=== PATIENT | male | born 1950 | race Caucasian/White ===

== ENCOUNTER → 2020-04-29 | Outpatient (CLI) | payer MEDICARE, OTHER ==
[~2020-04-29] MED LIST: ADV500INH; ESCI10TA2; FARX1TAB3 PO; JANU100T; LANS30CA93; PIOG15TA; ROSU20TA5; SYNT112T2; VENTAER INH
== END ==
LOC: M LABSMTC 10:56
PROVIDERS: ATTEND Anesthesiology
DX: Z01.812 Encounter for preprocedural laboratory examination (principal); Z20.828 Contact with and (suspected) exposure to other viral communicable diseases
CPT/HCPCS: C9803; U0003

== ENCOUNTER 2020-05-04 10:45 | Day surgery (SDC) | payer MEDICARE, OTHER ==
[~2020-05-04] VITALS: Ht 156.2 cm; Wt 68.0 kg
[~2020-05-04 10:45] MED LIST changes: +LIDOCAINE 2% 100MG/5ML SDV (FOR ANES.) As Ordered ONE; +NS 1,000 ML IV ONE; +propofoL 500 MG/50 ML VIAL As Ordered ONE
--- NOTE | 2020-05-04 12:10 | ROOR ---
Patient Name: Karan Uriostegui Procedure Date: 05/04/2020 11:46 AM Date of : 1950 Age: 69 Room: [facility] Gender: Male Note Status: Finalized Procedure: Upper Endoscopy + Biopsies + Endoloop Indications: Heartburn, Exclusion of Reynaga's esophagus Providers: Kavon Moura MD Referring MD: KASEY ALVA Requesting Provider: Medicines: Monitored Anesthesia Care Complications: No immediate complications. Procedure: Pre-Anesthesia Assessment: - The heart rate, respiratory rate, oxygen saturations, blood pressure, adequacy of pulmonary ventilation, and response to care were monitored throughout the procedure. The Endoscope was introduced through the mouth, and advanced to the second part of duodenum. The upper GI endoscopy was accomplished without difficulty. The patient tolerated the procedure well. Findings: The Z-line was regular and was found 35 cm from the incisors. Multiple biopsies were obtained with cold forceps for evaluation to rule out Reynaga's Esophagus randomly at the gastroesophageal junction. A medium-sized hiatal hernia was present. A single medium pedunculated polyp with no bleeding and no stigmata of recent bleeding was found in the prepyloric region of the stomach. One ligature was successfully placed. Biopsies were taken with a cold forceps for histology. Localized mildly erythematous mucosa without bleeding was found in the gastric antrum. Biopsies were taken with a cold forceps for Helicobacter pylori testing. The exam was otherwise without abnormality. Impression: - Z-line regular, 35 cm from the incisors. - Medium-sized hiatal hernia. - A single gastric polyp. Ligated. Biopsied. - Erythematous mucosa in the antrum. Biopsied. - The examination was otherwise normal. - Multiple biopsies were obtained at the gastroesophageal junction. Recommendation: - Patient has a contact number available for emergencies. The signs and symptoms of potential delayed complications were discussed with the patient. Return to normal activities tomorrow. Written discharge instructions were provided to the patient. - Discharge patient to home. - Follow an antireflux regimen. - Continue present medications. - Await pathology results. - Telephone GI clinic for pathology results in 1 week. - Return to referring physician. - The findings and recommendations were discussed with the patient. Kavon Moura MD Kavon Moura MD 05/04/2020 12:09:27 PM Electronically signed by Kavon Moura MD Number of Addenda: 0 Note Initiated On: 05/04/2020 11:46 AM Estimated Blood Loss: Estimated blood loss: none.
--- NOTE | 2020-05-04 12:21 | ROOR ---
Patient Name: Karan Uriostegui Procedure Date: 05/04/2020 11:48 AM Date of : 1950 Age: 69 Room: [facility] Gender: Male Note Status: Finalized Procedure: Total Colonoscopy to Cecum Indications: Screening for colorectal malignant neoplasm Providers: Kavon Moura MD Referring MD: KASEY ALVA Requesting Provider: Medicines: Monitored Anesthesia Care Complications: No immediate complications. Procedure: Pre-Anesthesia Assessment: - The heart rate, respiratory rate, oxygen saturations, blood pressure, adequacy of pulmonary ventilation, and response to care were monitored throughout the procedure. The Colonoscope was introduced through the anus and advanced to the cecum, identified by appendiceal orifice and ileocecal valve. The colonoscopy was performed without difficulty. The patient tolerated the procedure well. The quality of the bowel preparation was good. Findings: The perianal and digital rectal examinations were normal. Non-bleeding internal hemorrhoids were found during retroflexion. The hemorrhoids were small and Grade I (internal hemorrhoids that do not prolapse). Multiple small and large-mouthed diverticula were found in the recto-sigmoid colon, sigmoid colon and descending colon. The exam was otherwise without abnormality on direct and retroflexion views. Impression: - Non-bleeding internal hemorrhoids. - Diverticulosis in the recto-sigmoid colon, in the sigmoid colon and in the descending colon. - The examination was otherwise normal on direct and retroflexion views. - No specimens collected. - The exam was otherwise normal to the cecum. Recommendation: - Patient has a contact number available for emergencies. The signs and symptoms of potential delayed complications were discussed with the patient. Return to normal activities tomorrow. Written discharge instructions were provided to the patient. - High fiber diet. - Discharge patient to home. - Continue present medications. - Repeat colonoscopy in 10 years for screening purposes. - Return to referring physician. - The findings and recommendations were discussed with the patient. Kavon Moura MD Kavon Moura MD 05/04/2020 12:21:22 PM Electronically signed by Kavon Moura MD Number of Addenda: 0 Note Initiated On: 05/04/2020 11:48 AM Estimated Blood Loss: Estimated blood loss: none.
[2020-05-04 12:40] VITALS: BP 118/62
== END 2020-05-04 12:52 | disposition home or self-care (01) ==
LOC: M OPP 10:45
PROVIDERS: ATTEND Internal Medicine Gastroenterology
DX: Z12.11 Encounter for screening for malignant neoplasm of colon (principal); K64.0 First degree hemorrhoids; K57.30 Diverticulosis of large intestine without perforation or abscess without bleeding; K44.9 Diaphragmatic hernia without obstruction or gangrene; K31.7 Polyp of stomach and duodenum; K31.89 Other diseases of stomach and duodenum; R12 Heartburn; Z79.84 Long term (current) use of oral hypoglycemic drugs; Z79.899 Other long term (current) drug therapy
CPT/HCPCS: 43239; 88305; G0121

== ENCOUNTER 2020-08-15 18:49 | Observation (INO) | payer MEDICARE, OTHER ==
[~2020-08-15] VITALS: Ht 154.9 cm; Wt 66.0 kg
[~2020-08-15 18:49] MED LIST changes: -ADV500INH; +ADV500INH PO; +ESCI10TA16; -ESCI10TA2; -JANU100T; +JANU100T PO; -LANS30CA93; +LANS30CA93 PO; -LIDOCAINE 2% 100MG/5ML SDV (FOR ANES.) As Ordered ONE; -NS 1,000 ML IV ONE; -PIOG15TA; +PIOG15TA PO; -ROSU20TA5; +ROSU20TA5 PO; -SYNT112T2; +SYNT112T2 PO; -propofoL 500 MG/50 ML VIAL As Ordered ONE
--- OUTSIDE RECORDS SUMMARY | 2020-08-15 18:56 | CCD | Continuity of Care Document ---
Author Author Karan KAUR [facility] Organization Unknown Address [address] [facility] [address] [place] [address] Phone [phone] Care Team Providers Care General Forecaster Name Role Phone Jonatan Lopez M.D. AUTM [phone] Problems Active Problems Provider Date Asthma without status asthmaticus Aaron Solorzano RPA Ons et: 02/13/2002 Gastroesophageal reflux disease Pete Marin M.D. Onset: 02/13/2002 Allergic rhinitis Pete Marin M.D. Onset: 02/13/2002 Hyperlipidemia Aaron Solorzano RPA Onset: 06/22/2002 Type 2 diabetes mellitus Pete Marin M.D. Onset: 2002 Hypothyroidism Aaron Solorzano RPA Onset: 12/25/2004 Tinnitus Shant Kaur RPA Onset: 02/25/2009 Diverticular disease of colon Shant Kaur RPA Onset: 02/25/2009 Elevated levels of transaminase & lactic acid dehydrog enase Shant Kaur RPA Onset: 07/28/2010 Impaired renal function disorder Shant Kaur RPA Onse t: 09/28/2011 Mild non-proliferative diabetic retinopathy Shant Kaur RPA Onset: 03/31/2014 Tinnitus Shant Kaur RPA Onset: 05/27/2015 Anxiety state Shant Kaur RPA Onset: 05/20/2017 Moderate recurrent major depression Shant Kaur RPA O nset: 05/20/2017 Social History Type Date Description Comments Sex Unknown Tobacco Use Start: Unknown Never Smoked Cigarettes ETOH Use Alcohol use: beer on weekends. Tobacco Use Start: Unknown Patient has never smoked Seat Belt/Car Seat always Allergies, Adverse Reactions, Alerts Active Allergies Reaction Severity Comments Date NKDA 10/26/2010 Seasonal 12/02/2001 Medications Active Medications SIG Qnty Indications Ordering Provide r Date Levothyroxine Sodium 112mcg Tablet s take 1 tablet 5x/week with 100mcg on off days. 90tamarleni Vidal D.O., [facility] 04/20/2020 Farxiga 5mg Tablets 1 by mouth every day 90tabs Thireno Vidal D.O., [facility] 01/12/2020 Escitalopram Oxalate 10mg Tablets take 1 tablet daily 90tabs [facility].O., [facility] 11/2017 Rosuvastatin Calcium 20mg Tablets take 1 tablet daily (max daily dose: 1) 90tabs Thierno Vidal D.O., [facility] 01/05/2016 Advair Diskus 500-50mcg/Dose Aeros ol Use 1 Inhalation Twice A Day 180units Thierno Vidal D.O., [facility] 11/26/2014 Januvia 100mg Tablets take 1 tablet daily 90tabs [facility] D.O., [facility] 10/02/2013 Pioglitazone HCL-Metformin HCL 15-850mg Tablets take 1 tablet twice a day (max daily dose: 2) 180ta Thierno Vidal D.O., [facility] 06/28/[address] take 1 capsule daily (max daily dose: 1) 90caps Thierno sullivan D.O., [facility] 12/02/2001 Medications Administered in Office Medication SIG Qnty Indications Ordering Provider Date Injection (SC)/(Im) Injection Shant Kaur RPA 08/03/2014 Immunizations CPT Code Status Date Vaccine Lot # [id number] Given 04/20/2020 Pneumococcal Immunization T0 [id number] 15874 Given 04/20/2020 Influenza Virus Vaccine, Quadrivalent, Slit Virus, Im Use 3Y & Up [id number] 49292 Given 03/31/2018 Influenza Virus Vaccine, Quadrivalent, Slit Virus, Im Use 3Y & Up [id number] [id number] Given 05/20/2017 Influenza Virus Vaccine, Quadrivalent, Slit Virus, Im Use 3Y & Up [id number] Vital Signs Date Vital Result Comment 07/22/2020 1:20pm BP Systolic 110 mmHg BP Diastolic 72 mmHg Body Temperature 97.4 F Heart Rate 90 /min Respiratory Rate 16 /min Height 60 inches 5'0" Weight 146.00 lb [place] Body Weight 106 lb BMI (Body Mass Index) 28.5 kg/m2 O2 % BldC Oximetry 96 % 04/20/2020 2:09pm BP Systolic 112 mmHg BP Diastolic 80 mmHg Body Temperature 98.0 F Heart Rate 91 /min Respiratory Rate 16 /min Height 60 inches 5'0" Weight 150.00 lb [place] Body Weight 106 lb BMI (Body Mass Index) 29.3 kg/m2 O2 % BldC Oximetry 97 % Results Test Acquired Date Facility Test Result H/L Range Note Laboratory test finding 07/12/2020 [facility] Hemoglobin A1c 7.0 % High 4.50-6.20 Laboratory test finding 07/12/2020 [facility] TSH 0.343 ulU/mL Low 0.60 - 4.8 CMP 07/12/2020 [facility] Glu 122 mg/dL High 70 - 110 1 BUN 14 mg/dL 8 - 23 Creat 0.9 mg/dL 0.7 - 1.2 BUN/Creatinine Ratio 15.9 CALC Na 141 mmol/L 136 - 145 K 4.3 mmol/L 3.5 - 5.1 CL 104.5 mmol/L 98.0 - 107.0 Co2 24.4 mmol/L 22.0 - 29.0 CA 9.3 mg/dL 8.6 - 10.2 TP 6.7 g/dL 6.6 - 8.7 Alb 4.5 g/dL 3.5 - 5.2 A/G Ratio 2.0 CALC Globulin 2.3 CALC Alp 68.3 U/L 40 - 129 Alt (SGPT) 20 U/L 0 - 41 Ast (Sgot) 22 U/L 0 - 40 Tbili 0.35 mg/dL 0.0 - 1.2 Osmolality-Calculated 283.1 CALC Anion Gap 16 mmol/L eGFR 101 # Calc 2 eGFR Non-Afr. [place] 87 # Calc 3 Lipid Panel 07/12/2020 [facility] Chol 128 mg/dL 0 - 200 Trig 134 mg/dL 35 - 200 HDL 60 mg/dL High 35 - 55 LDL_C 41 Calc Low 75 - 129 Cho/HDL Ratio 2.1 CALC CMP 04/13/2020 [facility] Glu 148 mg/dL High 70 - 110 BUN 18 mg/dL 8 - 23 Creat 1.0 mg/dL 0.7 - 1.2 BUN/Creatinine Ratio 19.1 CALC Na 137 mmol/L 136 - 145 K 4.9 mmol/L 3.5 - 5.1 CL 100.2 mmol/L 98.0 - 107.0 Co2 22.9 mmol/L 22.0 - 29.0 CA 9.1 mg/dL 8.6 - 10.2 TP 6.9 g/dL 6.6 - 8.7 Alb 4.5 g/dL 3.5 - 5.2 A/G Ratio 1.9 CALC Globulin 2.4 CALC Alp 66.1 U/L 40 - 129 Alt (SGPT) 14 U/L 0 - 41 Ast (Sgot) 17 U/L 0 - 40 Tbili 0.26 mg/dL 0.0 - 1.2 Osmolality-Calculated 277.8 CALC Anion Gap 18 mmol/L eGFR 89 # Calc 4 eGFR Non-Afr. [place] 77 # Calc 5 Lipid Panel 04/13/2020 [facility] Chol 152 mg/dL 0 - 200 Trig 149 mg/dL 35 - 200 HDL 68 mg/dL High 35 - 55 LDL_C 54 Calc Low 75 - 129 Cho/HDL Ratio 2.2 CALC Laboratory test finding 04/13/2020 [facility] PSA, Total 1.54 ng/mL 0.0 - 4.0 Laboratory test finding 04/13/2020 [facility] Hemoglobin A1c 7.3 % High 4.50-6.20 Laboratory test finding 04/13/2020 [facility] TSH 5.233 ulU/mL High 0.60 - 4.8 1 CHRONIC KIDNEY DISEASE STAGI NG PER NKF: MALE GFR INTERPRETATION: 20-49 YRS: >60 mL/min Normal 50-59 YRS: >56 mL/min Normal 60-69 YRS: >49 mL/min Normal 70-79 YRS: >42 mL/min Normal 80 and above >35 mL/min Normal FEMALE GRF INTERPRETATION: 20-39 YRS: >60 mL/min Normal 40-49 YRS: >58 mL/min Normal 50-59 YRS: >51 mL/min Normal 60-69 YRS: >45 mL/min Normal 70-79 YRS: >39 mL/min Normal 80 and above >32 mL/min NormalCLASSIFICATION CHOLESTEROL FOR ADULTS CHILDREN/ADOLESCENTS* DESIRABLE: <200 MG/DL <170 MG/DL BORDER-LINE HIGH RISK: 200-239 MG/DL 170-199 MG/DL HIGH RISK: >240 MG/DL >200 MG/DL CLASS. FOR PRIMARY LDL CHOL PREVENTION: LDL CHOL-CHILD/ADOLESCENTS* DESIRABLE: <130 MG/DL <110 MG/DL BORDERLINE-HIGH RISK: 130-159 MG/DL 110-129 MG/DL HIGH RISK: >160 MG/DL >130 MG/DL *CHILDREN AND ADOLESCENTS REPRESENTS INDIVIDUALA AGED 2-19 YEARS EXCLUSIVE. 2 CKD-EPI 3 CKD-EPI 4 CKD-EPI 5 CKD-EPI Procedures Description No Information Available Medical Devices Description No Information Available Encounters Type Date Location Provider Dx Diagnosis Office Visit 07/22/2020 1:15p [place] [facility] Shant Kaur, CRIS A E11.9 Type 2 diabetes mellitus without complications E78.5 Hyperlipidemia, unspecified E03.9 Hypothyroidism, unspecified J45.909 Unspecified asthma, uncompli cated H93.19 Tinnitus, unspecified ear K21.9 Gastro-esophageal reflux dis ease without esophagitis K57.90 Dvrtclos of intest, part uns p, w/o perf or abscess w/o bleed F41.9 Anxiety disorder, unspecifie d F33.1 Major depressive disorder, r ecurrent, moderate Office Visit 04/20/2020 1:15p [place] [facility] Shant Kaur, CRIS A E11.9 Type 2 diabetes mellitus without complications E78.5 Hyperlipidemia, unspecified E03.9 Hypothyroidism, unspecified J45.909 Unspecified asthma, uncompli cated H93.19 Tinnitus, unspecified ear K21.9 Gastro-esophageal reflux dis ease without esophagitis K57.90 Dvrtclos of intest, part uns p, w/o perf or abscess w/o bleed F41.9 Anxiety disorder, unspecifie d F33.1 Major depressive disorder, r ecurrent, moderate Z23 Encounter for immunization Assessments Date Code Description Provider 07/22/2020 E11.9 Type 2 diabetes mellitus without complications Shant Kaur, RPA 07/22/2020 E78.5 Hyperlipidemia, unspecified HiShant jane, RPA 07/22/2020 E03.9 Hypothyroidism, unspecified Hinm Shant ashley, RPA 07/22/2020 J45.909 Unspecified asthma, uncomplicate d Shant Kaur, RPA 07/22/2020 H93.19 Tinnitus, unspecified ear Shant Kaur, RPA 07/22/2020 K21.9 Gastro-esophageal reflux disease without esophagitis Shant Kaur, RPA 07/22/2020 K57.90 Diverticulosis of intestine, par t unspecified, without perfo Shant Kaur, RPA 07/22/2020 F41.9 Anxiety disorder, unspecified Hi nmShant ashley, RPA 07/22/2020 F33.1 Major depressive disorder, recur rent, moderate Shant Kaur, RPA 07/12/2020 E11.9 Type 2 diabetes mellitus without complications Demetrio Kenny M.D. 07/12/2020 E11.9 Type 2 diabetes mellitus without complications [facility] Schedule 07/12/2020 E78.5 [facility], [facility] 04/20/2020 E11.9 Type 2 diabetes mellitus without complications Shant Kaur, RPA 04/20/2020 E78.5 Hyperlipidemia, unspecified Elijahnm Shant ashley, RPA 04/20/2020 E03.9 Hypothyroidism, unspecified Hinm Shant ashley, RPA 04/20/2020 J45.909 Unspecified asthma, uncomplicate d Shant Kaur, RPA 04/20/2020 H93.19 Tinnitus, unspecified ear Shant Kaur, RPA 04/20/2020 K21.9 Gastro-esophageal reflux disease without esophagitis Shant Kaur, RPA 04/20/2020 K57.90 Diverticulosis of intestine, par t unspecified, without perfo Shant Kaur, RPA 04/20/2020 F41.9 Anxiety disorder, unspecified Hi nmShant ashely, RPA 04/20/2020 F33.1 Major depressive disorder, recur rent, moderate Shant Kaur, RPA 04/20/2020 Z23 Encounter for immunization Shant Valderrama, RPA 04/13/2020 Z12.5 Encounter for screening for chio gnant neoplasm of prostate Demetrio Kenny M.D. 04/13/2020 E11.9 Type 2 diabetes mellitus without complications Demetrio Kenny M.D. 04/13/2020 E11.9 Type 2 diabetes mellitus without complications Laboratory [place] Schedule 04/13/2020 E78.5 Hyperlipidemia, unspecified [facility] Demetrio arroyo M.D. 04/13/2020 E03.9 Hypothyroidism, unspecified [facility] Demetrio arroyo M.D. 04/13/2020 Z12.5 Encounter for screening for chio gnant neoplasm of prostate Demetrio Kenny M.D. Plan of Treatment No Information Available Functional Status Description No Information Available Mental Status Description No Information Available Referrals Description No Information Available
--- OUTSIDE RECORDS SUMMARY | 2020-08-15 18:56 | CCD | Continuity of Care Document ---
Author Author Karan Shah Organization Unknown Address 3 [facility] [address] [place] [address] Phone [phone] Care Team Providers Care Digital Performance Analyst Name Role Phone Jonatan Lopez M.D. AUTM [phone] Problems Active Problems Provider Date Asthma without [...] r Date Levothyroxine Sodium 112mcg Tablet s Take 1 Tablet Daily (Max Daily Dose: 1) 90tabs Thierno Vidal D.O., [facility] 04/20/2020 Farxiga 5mg Tablets 1 by mouth every day 90tabs Thierno Vidal D.O., [facility] 01/12/2020 Escitalopram Oxalate 10mg Tablets Take 1 Tablet Daily 90tabs [facility] 11/2017 Rosuvastatin Calcium 20mg Tablets Take 1 Tablet Daily (Max Daily Dose: 1) 90tabs Thierno Vidal D.O., [facility] 01/05/2016 Advair Diskus 500-50mcg/Dose Aeros ol Use 1 Inhalation Twice A Day 180units Thierno Vidal D.O., [facility] 11/26/2014 Januvia 100mg Tablets Take 1 Tablet Daily 90tabs [facility]., [facility] 10/02/2013 Pioglitazone HCL-Metformin HCL 15-850mg Tablets Take 1 Tablet Twice A Day (Max Daily Dose: 2) 180tabs Thierno Vidal D.O., [facility] 06/28/[address] Take 1 Capsule Daily (Max Daily Dose: 1) 90caps Thierno sullivan D.O., [facility] 12/02/2001 Medications Administered in Office Medication SIG Qnty Indications Ordering Provider Date Injection (SC)/(Im) Injection Shant Kaur RPA 08/03/2014 Immunizations CPT Code Status Date Vaccine Lot # 66735 Given 04/20/2020 Pneumococcal Immunization T0 [id number] 89956 Given 04/20/2020 Influenza Virus Vaccine, Quadrivalent, Slit Virus, Im Use 3Y & Up [id number] [id number] Given 03/31/2018 Influenza Virus Vaccine, Quadrivalent, Slit Virus, Im Use 3Y & Up [id number] [id number] Given 05/20/2017 Influenza Virus Vaccine, Quadrivalent, Slit Virus, Im Use 3Y & Up [id number] Vital Signs Date Vital Result Comment 04/20/2020 2:09pm BP Systolic 112 mmHg BP Diastolic 80 mmHg Body Temperature 98.0 F Heart Rate 91 /min Respiratory Rate 16 /min Height 60 inches 5'0" Weight 150.00 lb [place] Body Weight 106 lb BMI (Body Mass Index) 29.3 kg/m2 O2 % BldC Oximetry 97 % 01/12/2020 2:16pm BP Systolic 120 mmHg BP Diastolic 60 mmHg Body Temperature 96.1 F Heart Rate 93 /min Respiratory Rate 16 /min Height 60 inches 5'0" Weight 146.00 lb [place] Body Weight 106 lb BMI (Body Mass Index) 28.5 kg/m2 O2 % BldC Oximetry 97 % Results Test Acquired Date Facility Test Result H/L Range Note Laboratory test finding 07/12/2020 [facility] Hemoglobin A1c 7.0 % High 4.50-6.20 Laboratory test finding 07/12/2020 [facility] TSH <pending> CMP 04/13/2020 [facility] Glu 148 mg/dL High 70 - 110 1 BUN 18 mg/dL 8 - 23 Creat [...] Gap 18 mmol/L eGFR 89 # Calc 2 eGFR Non-Afr. Guyanese 77 # Calc 3 Lipid Panel 04/13/2020 [facility] Chol 152 mg/dL 0 - 200 Trig 149 mg/dL 35 - 200 HDL 68 mg/dL High 35 - 55 LDL_C 54 Calc Low 75 - 129 Cho/HDL Ratio 2.2 CALC Laboratory test finding 04/13/2020 [facility] PSA, Total 1.54 ng/mL 0.0 - 4.0 Laboratory test finding 04/13/2020 [facility] Hemoglobin A1c 7.3 % High [...] 2-19 YEARS EXCLUSIVE. 2 CKD-EPI 3 CKD-EPI Procedures Description No Information Available Medical Devices Description No Information Available Encounters Type Date Location Provider Dx Diagnosis Office Visit 04/20/2020 1:15p [place] [facility] Shant Kaur, RP A E11.9 Type 2 diabetes mellitus without complications E78.5 Hyperlipidemia, unspecified E03.9 Hypothyroidism, unspecified J45.909 Unspecified asthma, uncompli cated H93.19 Tinnitus, unspecified ear K21.9 Gastro-esophageal reflux dis ease without esophagitis K57.90 Dvrtclos of intest, part uns p, w/o perf or abscess w/o bleed F41.9 Anxiety disorder, unspecifie d F33.1 Major depressive disorder, r ecurrent, moderate Z23 Encounter for immunization Office Visit 01/12/2020 2:20p [place] [facility] Shant Kaur, RP A E11.9 Type 2 diabetes mellitus without complications E78.5 Hyperlipidemia, unspecified J45.909 Unspecified asthma, uncompli cated E03.9 Hypothyroidism, unspecified H93.19 Tinnitus, unspecified ear J30.9 Allergic rhinitis, unspecifi ed R74.0 Nonspec elev of levels of tr ansamns & lactic acid dehydrgnse K21.9 Gastro-esophageal reflux dis ease without esophagitis K57.90 Dvrtclos of intest, part uns p, w/o perf or abscess w/o bleed F41.9 Anxiety disorder, unspecifie d F33.1 Major depressive disorder, r ecurrent, moderate Z12.11 Encounter for screening for malignant neoplasm of colon Assessments Date Code Description Provider 07/12/2020 E11.9 Type 2 diabetes mellitus without complications Laboratory [place] Schedule 04/20/2020 E11.9 Type 2 diabetes mellitus without complications Shant Kaur, RPA 04/20/2020 E78.5 Hyperlipidemia, unspecified Shant Calderon, RPA 04/20/2020 E03.9 Hypothyroidism, unspecified Shant Calderon, RPA 04/20/2020 J45.909 Unspecified asthma, uncomplicate d Shant Kaur, RPA 04/20/2020 H93.19 Tinnitus, unspecified ear Shant Kaur, RPA 04/20/2020 K21.9 Gastro-esophageal reflux disease without esophagitis Shant Kaur, RPA 04/20/2020 K57.90 Diverticulosis of intestine, par t unspecified, without perfo Shant Kaur, RPA 04/20/2020 F41.9 Anxiety disorder, unspecified Hi Shant hugo, RPA 04/20/2020 F33.1 Major depressive disorder, recur rent, moderate Shant Kaur, RPA 04/20/2020 Z23 Encounter for immunization Shant Valderrama, RPA 04/13/2020 Z12.5 Encounter for screening for chio gnant neoplasm of prostate Demetrio Kenny M.D. 04/13/2020 E11.9 Type 2 diabetes mellitus without complications Demetrio Kenny M.D. 04/13/2020 E11.9 Type 2 diabetes mellitus without complications Laboratory [place] Schedule 04/13/2020 E78.5 Hyperlipidemia, unspecified [facility] Demetrio arroyo M.D. 04/13/2020 E03.9 Hypothyroidism, unspecified [facility] Demetrio arroyo M.D. 04/13/2020 Z12.5 Encounter for screening for chio gnant neoplasm of prostate Demetrio Kenny M.D. 01/12/2020 E11.9 Type 2 diabetes mellitus without complications Shant Kaur, RPA 01/12/2020 E78.5 Hyperlipidemia, unspecified Elijahnm Shant ashley, RPA 01/12/2020 J45.909 Unspecified asthma, uncomplicate d Shant Kaur, RPA 01/12/2020 E03.9 Hypothyroidism, unspecified Elijahnm Shant ashley, RPA 01/12/2020 H93.19 Tinnitus, unspecified ear Shant Kaur, RPA 01/12/2020 J30.9 Allergic rhinitis, unspecified H Shant grady, RPA 01/12/2020 R74.0 Nonspecific elevation of levels of transaminase and lactic a Shant Kaur, RPA 01/12/2020 K21.9 Gastro-esophageal reflux disease without esophagitis Shant Kaur, RPA 01/12/2020 K57.90 Diverticulosis of intestine, par t unspecified, without perfo Shant Kaur, RPA 01/12/2020 F41.9 Anxiety disorder, unspecified Shant Veliz, RPA 01/12/2020 F33.1 Major depressive disorder, recur rent, moderate Shant Kaur, RPA 01/12/2020 Z12.11 Encounter for screening for chio gnant neoplasm of colon Shant Kaur RPA Plan of Treatment Future Appointment(s):* 07/22/2020 1:15 pm - Shant Kaur RPA at [place] [facility] Functional Status Description No Information Available Mental Status Description No Information Available Referrals Refer to Reason for Referral Status Appt Date Kavon Moura M.D. 10yr f/u colonoscopy requested. Sent 02/18/[address] [place] [address]
--- OUTSIDE RECORDS SUMMARY | 2020-08-15 18:56 | CCD | Continuity of Care Document ---
Author Author Karan Shah Organization Unknown Address [address] [facility] [address] [place] [address] Phone [phone] Care Team Providers Care Manager Of Employee Relations Name Role Phone Jonatan Lopez M.D. AUTM [phone] Problems Active Problems Provider Date Asthma without [...] Daily Dose: 1) 90tabs Thierno Vidal D.O., [facility] 04/20/2020 Farxiga 5mg Tablets 1 by mouth every day 90tabs Thierno Vidal D.O., [facility] 01/12/2020 Escitalopram Oxalate 10mg Tablets Take 1 Tablet Daily 90tabs [facility] 11/2017 Rosuvastatin Calcium 20mg Tablets Take 1 Tablet Daily (Max Daily Dose: 1) 90tabs Thierno Vidal D.O., [facility] 01/05/2016 Advair Diskus 500-50mcg/Dose Aeros ol Use 1 Inhalation Twice A Day 180units Thierno Vidal D.O., [facility] 11/26/2014 Januvia 100mg Tablets Take 1 Tablet Daily 90tabs [facility] 10/02/2013 Pioglitazone HCL-Metformin HCL 15-850mg Tablets Take 1 Tablet Twice A Day (Max Daily Dose: 2) 180tabs Thierno Vidal D.O., [facility] 06/28/[address] Take 1 Capsule Daily (Max Daily Dose: 1) 90caps Thierno sullivan D.O., [facility] 12/02/2001 Medications Administered in Office Medication SIG Qnty Indications Ordering Provider Date Injection (SC)/(Im) Injection Shant Kaur RPA 08/03/2014 Immunizations CPT Code Status Date Vaccine Lot # [id number] Given 04/20/2020 Pneumococcal Immunization T0 [id number] 07072 Given 04/20/2020 Influenza Virus Vaccine, Quadrivalent, Slit Virus, Im Use 3Y & Up [id number] 01813 Given 03/31/2018 Influenza Virus Vaccine, Quadrivalent, Slit Virus, Im Use 3Y & Up [id number] 30780 Given 05/20/2017 Influenza Virus Vaccine, Quadrivalent, Slit Virus, Im Use 3Y & Up [id number] Vital Signs Date Vital Result Comment 04/20/2020 2:09pm BP Systolic 112 mmHg BP Diastolic 80 mmHg Body Temperature 98.0 F Heart Rate 91 /min Respiratory Rate 16 /min Height 60 inches 5'0" Weight 150.00 lb [place] Body Weight 106 lb BMI (Body Mass Index) 29.3 kg/m2 O2 % BldC Oximetry 97 % 01/12/2020 2:16pm BP Systolic 120 mmHg BP Diastolic 60 mmHg Body Temperature 96.1 F Heart Rate 93 /min Respiratory Rate 16 /min Height 60 inches 5'0" Weight 146.00 lb [place] Body Weight 106 lb BMI (Body Mass Index) 28.5 kg/m2 O2 % BldC Oximetry 97 % Results Test Acquired Date Facility Test Result H/L Range Note CMP 04/13/2020 [facility] Glu 148 mg/dL High [...] eGFR 89 # Calc 2 eGFR Non-Afr. Ecuadorean 77 # Calc 3 Lipid Panel 04/13/2020 [...] Provider Dx Diagnosis Office Visit 04/20/2020 1:15p [place] [facility] Shant Kaur, CRIS A E11.9 Type [...] Encounter for immunization Office Visit 01/12/2020 2:20p [place] [facility] Shant Kaur, RP A E11.9 Type [...] of colon Assessments Date Code Description Provider 04/20/2020 E11.9 Type 2 diabetes mellitus without [...] Type 2 diabetes mellitus without complications Laboratory [place] Schedule 04/13/2020 E78.5 Hyperlipidemia, unspecified [facility] Demetrio arroyo M.D. 04/13/2020 E03.9 Hypothyroidism, unspecified [facility] Demetrio arroyo M.D. 04/13/2020 Z12.5 Encounter for [...] RPA 01/12/2020 J30.9 Allergic rhinitis, unspecified H ysabelShant rgeenwood, RPA 01/12/2020 R74.0 Nonspecific elevation of levels of transaminase and lactic a Shant Kaur, RPA 01/12/2020 K21.9 Gastro-esophageal reflux disease without esophagitis Shant Kaur, RPA 01/12/2020 K57.90 Diverticulosis of intestine, par t unspecified, without perfo Shant Kaur, RPA 01/12/2020 F41.9 Anxiety disorder, unspecified [place] Shant hugo, RPA 01/12/2020 F33.1 Major depressive disorder, recur rent, moderate Shant Kaur, [facility] 01/12/2020 Z12.11 Encounter for screening for chio gnant neoplasm of colon Shant Kaur RPA Plan of Treatment Future Appointment(s):* 07/22/2020 1:15 pm - Shant Kaur RPA at [place] [facility] Functional Status Description No Information Available Mental Status Description No Information Available Referrals Refer to Reason for Referral Status Appt Date Kavon Moura M.D. 10yr f/u colonoscopy requested. Sent 02/18/[address] [place] [address]
--- OUTSIDE RECORDS SUMMARY | 2020-08-15 18:56 | CCD | Continuity of Care Document ---
Author Author Karan Shah Organization Unknown Address [address] [facility] [address] [place] [address] Phone [phone] Care Team Providers Care Supervisor [employer] Name Role Phone Jonatan Lopez M.D. AUTM [phone] Problems Active Problems Provider Date Asthma without [...] Daily Dose: 1) 90tabs Thierno Vidal D.O., [facility] 04/20/2020 Farxiga 5mg Tablets 1 by mouth every day 90tabs Thierno Vidal D.O., [facility] 01/12/2020 Escitalopram Oxalate 10mg Tablets Take 1 Tablet Daily 90tabs [facility] 11/2017 Rosuvastatin Calcium 20mg Tablets Take 1 Tablet Daily (Max Daily Dose: 1) 90tabs Thierno Vidal D.O., [facility] 01/05/2016 Advair Diskus 500-50mcg/Dose Aeros ol Use 1 Inhalation Twice A Day 180units Thierno Vidal D.O., [facility] 11/26/2014 Januvia 100mg Tablets Take 1 Tablet Daily 90tabs [facility] 10/02/2013 Pioglitazone HCL-Metformin HCL 15-850mg Tablets Take 1 Tablet Twice A Day (Max Daily Dose: 2) 180tabs Thierno Vidal D.O., [facility] 06/28/[address] Take 1 Capsule Daily (Max Daily Dose: 1) 90caps Thierno sullivan D.O., [facility] 12/02/2001 Medications Administered in Office Medication SIG Qnty Indications Ordering Provider Date Injection (SC)/(Im) Injection Shant Kaur RPA 08/03/2014 Immunizations CPT Code Status Date Vaccine Lot # [id number] Given 04/20/2020 Pneumococcal Immunization T0 29986 61810 Given 04/20/2020 Influenza Virus Vaccine, Quadrivalent, Slit Virus, Im Use 3Y & Up [id number] 69092 Given 03/31/2018 Influenza Virus Vaccine, Quadrivalent, Slit Virus, Im Use 3Y & Up [id number] 18620 Given 05/20/2017 Influenza Virus Vaccine, Quadrivalent, Slit Virus, Im Use 3Y & Up [id number] Vital Signs Date Vital Result Comment 04/20/2020 2:09pm BP Systolic 112 mmHg BP Diastolic 80 mmHg Body Temperature 98.0 F Heart Rate 91 /min Respiratory Rate 16 /min Height 60 inches 5'0" Weight 150.00 lb [place] Body Weight 106 lb BMI (Body Mass Index) 29.3 kg/m2 O2 % BldC Oximetry 97 % 01/12/2020 2:16pm BP Systolic 120 mmHg BP Diastolic 60 mmHg Body Temperature 96.1 F Heart Rate 93 /min Respiratory Rate 16 /min Height 60 inches 5'0" Weight 146.00 lb [place] Body Weight 106 lb BMI (Body Mass Index) 28.5 kg/m2 O2 % BldC Oximetry 97 % Results Test Acquired Date Facility Test Result H/L Range Note Laboratory test finding 07/12/2020 [facility] Hemoglobin A1c 7.0 % High 4.50-6.20 Laboratory test finding 07/12/2020 [facility] TSH <pending> CMP 07/12/2020 [facility] Glu 122 mg/dL High [...] eGFR 101 # Calc 2 eGFR Non-Afr. Malagasy 87 # Calc 3 Lipid Panel 07/12/2020 [...] eGFR 89 # Calc 4 eGFR Non-Afr. Malagasy 77 # Calc 5 Lipid Panel 04/13/2020 [...] Provider Dx Diagnosis Office Visit 04/20/2020 1:15p [place] [facility] Shant Kaur RP A E11.9 Type 2 diabetes mellitus [...] Encounter for immunization Office Visit 01/12/2020 2:20p [place] [facility] Shant Kaur RP A E11.9 Type 2 diabetes mellitus [...] Type 2 diabetes mellitus without complications Laboratory [place] Schedule 04/20/2020 E11.9 Type 2 diabetes mellitus [...] E11.9 Type 2 diabetes mellitus without complications [facility] Schedule 04/13/2020 E78.5 Hyperlipidemia, unspecified [facility] Demetrio arroyo M.D. 04/13/2020 E03.9 Hypothyroidism, unspecified [facility] Demetrio arroyo M.D. 04/13/2020 Z12.5 Encounter for screening for chio gnant neoplasm of prostate Demetrio Kenny M.D. 01/12/2020 E11.9 Type 2 diabetes mellitus without complications Shant Kaur, RPA 01/12/2020 E78.5 Hyperlipidemia, unspecified Shant Calderon, RPA 01/12/2020 J45.909 Unspecified asthma, uncomplicate d Shant Kaur, RPA 01/12/2020 E03.9 Hypothyroidism, unspecified Shant Calderon, RPA 01/12/2020 H93.19 Tinnitus, unspecified ear Shant Kaur, RPA 01/12/2020 J30.9 Allergic rhinitis, unspecified H Shnat grady, [facility] 01/12/2020 R74.0 Nonspecific elevation of levels of transaminase and lactic a Shant Kaur, [facility] 01/12/2020 K21.9 Gastro-esophageal reflux disease without esophagitis Shant Kaur, RPA 01/12/2020 K57.90 Diverticulosis of intestine, par t unspecified, without perfo Shant Kaur, [facility] 01/12/2020 F41.9 Anxiety disorder, unspecified Hi Shant hugo, [facility] 01/12/2020 F33.1 Major depressive disorder, recur rent, moderate Shant Kaur, [facility] 01/12/2020 Z12.11 Encounter for screening for chio gnant neoplasm of colon Shant Kaur RPA Plan of Treatment Future Appointment(s):* 07/22/2020 1:15 pm - Shant Kaur RPA at [place] [facility] Functional Status Description No Information Available Mental Status Description No Information Available Referrals Refer to Reason for Referral Status Appt Date Kavon Moura M.D. 10yr f/u colonoscopy requested. Sent 02/18/2020 [address], [place] [address]
--- OUTSIDE RECORDS SUMMARY | 2020-08-15 18:57 | CCD ---
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 Name Role Phone Ania Moura MD Unavailable Unavailable Ania Moura MD Unavailable Unavailable Ania Moura MD Unavailable Unavailable Ania Moura MD Unavailable Unavailable Ania Moura MD Unavailable Unavailable Ania Moura MD Unavailable Unavailable Ania Moura MD Unavailable Unavailable Ania Moura MD Unavailable Unavailable Ania Moura MD Unavailable Unavailable Ania Moura MD Unavailable Unavailable Ania Moura MD Unavailable Unavailable Ania Moura MD Unavailable Unavailable Ania Moura MD Unavailable Unavailable Ania Moura MD Unavailable Unavailable Ania Moura MD Unavailable Unavailable Ania Moura MD Unavailable Unavailable Ania Moura MD Unavailable Unavailable Ania Moura MD Unavailable Unavailable Ania Moura MD Unavailable Unavailable Ania Moura MD Unavailable Unavailable Ania Moura MD Unavailable Unavailable Ania Moura MD Unavailable Unavailable Ania Moura MD Unavailable Unavailable Ania Moura MD Unavailable Unavailable Ania Moura MD Unavailable Unavailable Ania Moura MD Unavailable Unavailable Ania Moura MD Unavailable Unavailable Ania Moura MD Unavailable Unavailable Ania Moura MD Unavailable Unavailable Ania Moura MD Unavailable Unavailable Ania Moura MD Unavailable Unavailable Ania Moura MD Unavailable Unavailable Ania Moura MD Unavailable Unavailable Ania Moura MD Unavailable Unavailable Ania Moura MD Unavailable Unavailable Zeny, S Kavon MD Unavailable Unavailable Zeny, S Kavon MD Unavailable Unavailable Zeny, S Kavon MD Unavailable Unavailable Zeny, S Kavon MD Unavailable Unavailable Zeny, S Kavon MD Unavailable Unavailable Zeny, S Kavon MD Unavailable Unavailable Zeny, S Kavon MD Unavailable Unavailable Zeny, S Kavon MD Unavailable Unavailable Zeny, S Kavon MD Unavailable Unavailable Zeny, S Kavon MD Unavailable Unavailable Zeny, S Kavon MD Unavailable Unavailable Zeny, S Kavon MD Unavailable Unavailable Zeny, S Kavon MD Unavailable Unavailable Zeny, S Kavon MD Unavailable Unavailable Zeny, S Kavon MD Unavailable Unavailable Mace Dick, Brain Poon MD, FACS Unavailable Unavailable Mace Dick, Brain Poon MD, FACS Unavailable Unavailable Mace Dick, Brain Poon MD, FACS Unavailable Unavailable Mace Dick, Brain Poon MD, FACS Unavailable Unavailable Mace Dick, Brain Poon MD, FACS Unavailable Unavailable Mace Dick, Brain Poon MD, FACS Unavailable Unavailable Mace Dick, Brain Poon MD, FACS Unavailable Unavailable Mace Dick, Brain Poon MD, FACS Unavailable Unavailable Mace Dick, Brain Poon MD, FACS Unavailable Unavailable Mace Dick, Brain Poon MD, FACS Unavailable Unavailable Mace Dick, Brain Poon MD, FACS Unavailable Unavailable Mace Dick, Brain Poon MD, FACS Unavailable Unavailable Mace Dick, Brain Poon MD, FACS Unavailable Unavailable Mace Dick, Brain Poon MD, FACS Unavailable Unavailable Mace Dick, Brain Poon MD, FACS Unavailable Unavailable Mace Dick, Brain Poon MD, FACS Unavailable Unavailable Mace Dick, Brain Poon MD, FACS Unavailable Unavailable Mace Dick, Brain Poon MD, FACS Unavailable Unavailable Mace Dick, Brain Poon MD, FACS Unavailable Unavailable Mace Dick, Brain Poon MD, FACS Unavailable Unavailable Mace Dick, Brain Poon MD, FACS Unavailable Unavailable Mace Dick, Brain Poon MD, FACS Unavailable Unavailable Mace Dick, Brain Poon MD, FACS Unavailable Unavailable Mace Dick, Brain Poon MD, FACS Unavailable Unavailable Mace Dick, Brain Poon MD, FACS Unavailable Unavailable Mace Dick, Brain Poon MD, FACS Unavailable Unavailable Mace Dick, Brain Poon MD, FACS Unavailable Unavailable Mace Dick, Brain Poon MD, FACS Unavailable Unavailable Mace Dick, Brain Poon MD, FACS Unavailable Unavailable Mace Dick, Brain Poon MD, FACS Unavailable Unavailable Mace Dick, Brain Poon MD, FACS Unavailable Unavailable Mace Dick, Brain Poon MD, FACS Unavailable Unavailable Mace Dick, Brain Poon MD, FACS Unavailable Unavailable Mace Dick, Brain Poon MD, FACS Unavailable Unavailable Rod Kaur PA Unavailable Unavailable Rod Kaur PA Unavailable Unavailable Rod Kaur PA Unavailable Unavailable Vincent, D Shant PA Unavailable Unavailable Vincent, D Shant PA Unavailable Unavailable Vincent, D Shant PA Unavailable Unavailable Vincent, D Shant PA Unavailable Unavailable Vincent, D Shant PA Unavailable Unavailable Vincent, D Shant PA Unavailable Unavailable Vincent, D Shant PA Unavailable Unavailable Vincent, D Shant PA Unavailable Unavailable Vincent, D Shant PA Unavailable Unavailable Vincent, D Shant PA Unavailable Unavailable Vincent, D Shant PA Unavailable Unavailable Vincent, D Shant PA Unavailable Unavailable Vincent, D Shant PA Unavailable Unavailable Vincent, D Shant PA Unavailable Unavailable Vincent, D Shant PA Unavailable Unavailable Vincent, D Shant PA Unavailable Unavailable Vincent, D Shant PA Unavailable Unavailable Vincent, D Shant PA Unavailable Unavailable Vincent, D Shant PA Unavailable Unavailable Vincent, D Shant PA Unavailable Unavailable Vincent, D Shant PA Unavailable Unavailable Vincent, D Shant PA Unavailable Unavailable Vincent, D Shant PA Unavailable Unavailable Vincent, D Shant PA Unavailable Unavailable Vincent, D Shant PA Unavailable Unavailable Vincent, D Shant PA Unavailable Unavailable Vincent, D Shant PA Unavailable Unavailable Vincent, D Shant PA Unavailable Unavailable Vincent, D Shant PA Unavailable Unavailable Vincent, D Shant PA Unavailable Unavailable Vincent, D Shant PA Unavailable Unavailable Vincent, D Shant PA Unavailable Unavailable Vincent, D Shant PA Unavailable Unavailable Vincent, D Shant PA Unavailable Unavailable Vincent, D Shant PA Unavailable Unavailable Vincent, D Shant PA Unavailable Unavailable Vincent, D Shant PA Unavailable Unavailable Vincent, D Shant PA Unavailable Unavailable Vincent, D Shant PA Unavailable Unavailable Vincent, D Shant PA Unavailable Unavailable Vincent, D Shant PA Unavailable Unavailable Vincent, D Shant PA Unavailable Unavailable Vincent, D Shant PA Unavailable Unavailable Vincent, D Shant PA Unavailable Unavailable Vincent, D Shant PA Unavailable Unavailable Vincent, D Shant PA Unavailable Unavailable Vincent, D Shant PA Unavailable Unavailable Vincent, D Shant PA Unavailable Unavailable Vincent, D Shant PA Unavailable Unavailable Vincent, D Shant PA Unavailable Unavailable Vincent, D Shant PA Unavailable Unavailable Vincent, D Shant PA Unavailable Unavailable Vincent, D Shant PA Unavailable Unavailable Vincent, D Shant PA Unavailable Unavailable Vincent, D Shant PA Unavailable Unavailable Vincent, D Shant PA Unavailable Unavailable Vincent, D Shant PARKS Unavailable Unavailable Vincent, D Shant PARKS Unavailable Unavailable Vincent, D Shant PARKS Unavailable Unavailable Vincent, D Shant PARKS Unavailable Unavailable Re-disclosure Warning The records that you are about to access may contain information from federally-assisted alcohol or drug abuse programs. If such information is present, then the following federally mandated warning applies: This information has been disclosed to you from records protected by federal confidentiality rules (42 CFR part 2). The federal rules prohibit you from making any further disclosure of this information unless further disclosure is expressly permitted by the written consent of the person to whom it pertains or as otherwise permitted by 42 CFR part 2. A general authorization for the release of medical or other information is NOT sufficient for this purpose. The Federal rules restrict any use of the information to criminally investigate or prosecute any alcohol or drug abuse patient.The records that you are about to access may contain highly sensitive health information, the redisclosure of which is protected by Article 27-F of the [facility] Public Health law. If you continue you may have access to information: Regarding HIV / AIDS; Provided by facilities licensed or operated by the [facility] Office of Mental Health; or Provided by the [facility] Office for People With Developmental Disabilities. If such information is present, then the following [facility] mandated warning applies: This information has been disclosed to you from confidential records which are protected by state law. State law prohibits you from making any further disclosure of this information without the specific written consent of the person to whom it pertains, or as otherwise permitted by law. Any unauthorized further disclosure in violation of state law may result in a fine or senior living sentence or both. A general authorization for the release of medical or other information is NOT sufficient authorization for further disc losure. Allergies and Adverse Reactions Type Description Substance Reaction Status Data Source(s ) Allergy to substance No Known Allergies No known allergies (situation ) IAN (Cleve Dick MD [facility]) Family History Family Member Name Family Member Gender Family Member Status Date o f Status Description Data Source(s) Unknown Unknown Problem [facility] ([facility] Encounters Encounter Providers Location Date Indications Data Source(s ) Outpatient Attender: Shant PARKS [place] [facility] 12:15:00 PM EST [facility] ([facility] Outpatient Attender: Shant PARKS [place] [facility] 01:15:00 PM EDT [facility] ([facility] Outpatient Attender: Kavon Moura MD Main Office 04/19/2020 10:45:00 AM EDT [facility] ([facility]) Outpatient Attender: Shant PARKS [place] [facility] 02:20:00 PM EDT [facility] ([facility] Outpatient Attender: Shant PARKS [place] [facility] 10:00:00 AM EST [facility] ([facility] Outpatient<td ID="encounterTypeDescripti onID0">8 Month Follow-Up</td><td>Cleve Kearney MD, FACS</td><td>Cleve Kearney MD [facility]</td><td>07/06/2019</td><td><content ID="encounterDiagnosisID0-0">Cataract Senile Cortical</content>, <content ID="encounterDiagnosisID0-1">Cataract Senile Nuclear</content>, <content ID="encounterDiagnosisID0-2">Dry Eye Syndrome</content>, <content ID="encounterDiagnosisID0-3">Taking Medication For Diabetes Long-term Use of Oral Hypoglycemics</content>, <content ID="encounterDiagnosisID0-4">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</content>, <content ID="encounterDiagnosisID0-5">Retinal Edema Macular Right Eye</content>, <content ID="encounterDiagnosisID0-6">Retinal Edema Macular Left Eye</content>, <content ID="encounterDiagnosisID0-7">Diabetic Retinopathy Nonproliferative Both Eyes</content></td> Attender: Cleve Dick MD, [facility] 07/06/2019 02:57:00 PM EST - 07/06/2019 03:30:00 PM EST Diabetic Retinopathy Nonproliferative Bereket th EyesRetinal Edema Macular Left EyeRetinal Edema Macular Right EyeCataract Senile NuclearCataract Senile Cortical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Taking Medication For Diabetes Long-term Use of Oral HypoglycemicsDry Eye Syndrome IAN (Cleve Dick MD [facility]) Diabetic Retinopathy Nonproliferative Bereket th Eyes Retinal Edema Macular Left Eye Retinal Edema Macular Right Eye Cataract Senile Nuclear Cataract Senile Cortical Type 2 Diab W/ Diab Retinopathy Mod Nonp rolif Without Macular Edema Taking Medication For Diabetes Long-term Use of Oral Hypoglycemics Dry Eye Syndrome Immunizations Vaccine Date Status Description Data Source(s) pneumococcal polysaccharide PPV23 04/20/2020 03:38:00 PM EDT comple saira MED[facility] ([facility] pneumococcal polysaccharide PPV23 04/20/2020 01:53:00 PM EDT comple saira MED[facility] ([facility] New in 2012. IIV4 04/20/2020 01:49:00 PM EDT completed [facility] ([facility] Medications Medication Brand Name Start Date Product Form Dose Route Admi nistrative Instructions Pharmacy Instructions Status Indications Reaction Description Data Source(s) Levothyroxine Sodium 0.112 MG Oral Tablet Levothyroxine Sodi um 04/20/2020 12:00:00 AM EDT active M EDENT ([facility] Suprep Bowel Prep Kit Suprep Bowel Prep Kit 04/19/2020 12:00:00 AM EDT active [facility] ([facility]) dapagliflozin 5 MG Oral Tablet [Farxiga] Farxiga 01/12/2020 12:00: 00 AM EDT ORAL active [facility] ([facility] Insurance Providers Payer name Policy type / Coverage type Policy ID Covered republican ID Covered republican's relationship to tsai Policy Tsai Plan Information R [facility] [id number] SP [id number] MEDICARE [id number] SP [id number] MEDICARE [id number] SP [id number] [employer] [id number] SP [id number] [employer] [place] Other 0 Self 0 Medicare Part B [facility] Other 0 Se lf 0 [employer] O [id number] S [id number] [employer] PPO O [id number] S [id number] [employer] Compensation Self [employer] Self Problems, Conditions, and Diagnoses Code Display Name Description Problem Type Effective Dates Data Source(s) 189123138 Screening for malignant neoplasm of colo n Screening for malignant neoplasm of colon Problem 04/19/2020 12:00:00 AM EDT [facility] ([facility]) [id number] Moderate persistent asthma Moderate persistent asthma Problem 12/03/2019 12:00:00 AM EDT [facility] ([facility] ) Surgeries/Procedures Procedure Description Date Indications Data Source(s) UPPER NDSC BIOPSY SINGLE/MULTIPLE 05/04/2020 12:00:00 AM EST [facility] ([facility]) COLONOSCOPY FLX DX W/WO COLLJ SPECIMENS 05/04/2020 12: 00:00 AM EST [facility] ([facility]) Currently wearing eyeglasses OTC readers +1.50 Curren tly wearing eyeglasses OTC readers +1.50 07/06/2019 12:00:00 AM EST IAN (Jarvis Dick MD [facility]) History of the retina was abnormal 09/25/2018 History o f the retina was abnormal 09/25/2018 07/06/2019 12:00:00 AM EST IAN (Jarvis Dick MD [facility]) History of diabetes mellitus DX: 1991 A1C: 6.7 in March with Jim PARKS FBS: 130 this morning History of diabetes mellitus DX: 1991 A1C: 6.7 in March with Jim PARKS FBS: 130 this morning 07/06/2019 12:00:00 AM EST IAN (Cleve Dick MD [facility]) No surgical / procedural history No surgical / procedural hi story 07/06/2019 12:00:00 AM EST IAN (Cleve Dick MD [facility]) Intermediate Eye Exam Established Patient Intermediate Eye Exam Established Patient 07/06/2019 12:00:00 AM EST IAN (Jarvis Dick MD [facility]) Results ID Date Data Source [id number] 07/12/2020 09:13:00 AM EST [facility] ([facility] Name Value Range Interpretation Code Description Data Neyda rce(s) Supporting Document(s) Trig 134 mg/dL 35-200 [facility] ([facility] CHRONIC KIDNEY DISEASE STAGING PER NKF: MALE GFR INTERPRETATION: 20-49 YRS: [...] DESIRABLE: <130 MG/DL <110 MG/DL BORDERLINE-HIGH RISK: 130- 159 MG/DL 110-129 MG/DL HIGH RISK: >160 MG/DL >130 MG/DL *CHILDREN AND ADOLESCENTS REPRESENTS INDIVIDUALA AGED 2-19 YEARS EXCLUSIVE. Chol 128 mg/dL 0-200 [facility] CHRONIC KIDNEY DISEASE STAGING PER NKF: MALE GFR INTERPRETATION: 20-49 YRS: [...] DESIRABLE: <130 MG/DL <110 MG/DL BORDERLINE-HIGH RISK: 130- 159 MG/DL 110-129 MG/DL HIGH RISK: >160 MG/DL >130 MG/DL *CHILDREN AND ADOLESCENTS REPRESENTS INDIVIDUALA AGED 2-19 YEARS EXCLUSIVE. Cho/HDL Ratio 2.1 CALC MEDENT ([facility] CHRONIC KIDNEY DISEASE STAGING PER NKF: MALE GFR INTERPRETATION: 20-49 YRS: [...] DESIRABLE: <130 MG/DL <110 MG/DL BORDERLINE-HIGH RISK: 130- 159 MG/DL 110-129 MG/DL HIGH RISK: >160 MG/DL >130 MG/DL *CHILDREN AND ADOLESCENTS REPRESENTS INDIVIDUALA AGED 2-19 YEARS EXCLUSIVE. LDL_C 41 Calc 75-129 Below low normal MED[facility] ( [facility] CHRONIC KIDNEY DISEASE STAGING PER NKF: MALE GFR INTERPRETATION: 20-49 YRS: [...] DESIRABLE: <130 MG/DL <110 MG/DL BORDERLINE-HIGH RISK: 130- 159 MG/DL 110-129 MG/DL HIGH RISK: >160 MG/DL >130 MG/DL *CHILDREN AND ADOLESCENTS REPRESENTS INDIVIDUALA AGED 2-19 YEARS EXCLUSIVE. Cholesterol in HDL [Mass/volume] in Serum or Plasma 60 mg/dL 35-55 Above high normal [facility] ([facility] ) CHRONIC KIDNEY DISEASE STAGING PER NKF: MALE GFR INTERPRETATION: 20-49 YRS: [...] DESIRABLE: <130 MG/DL <110 MG/DL BORDERLINE-HIGH RISK: 130- 159 MG/DL 110-129 MG/DL HIGH RISK: >160 MG/DL >130 MG/DL *CHILDREN AND ADOLESCENTS REPRESENTS INDIVIDUALA AGED 2-19 YEARS EXCLUSIVE. ID Date Data Source [id number] 07/12/2020 09:13:00 AM EST MED[facility] ([facility] Name Value Range Interpretation Code Description Data Neyda rce(s) Supporting Document(s) Glu 122 mg/dL 70-110 Above high normal [facility] ([facility] CHRONIC KIDNEY DISEASE STAGING PER NKF: MALE GFR INTERPRETATION: 20-49 YRS: [...] DESIRABLE: <130 MG/DL <110 MG/DL BORDERLINE-HIGH RISK: 130- 159 MG/DL 110-129 MG/DL HIGH RISK: >160 MG/DL >130 MG/DL *CHILDREN AND ADOLESCENTS REPRESENTS INDIVIDUALA AGED 2-19 YEARS EXCLUSIVE. BUN/Creatinine Ratio 15.9 CALC [facility] ([facility] CHRONIC KIDNEY DISEASE STAGING PER NKF: MALE GFR INTERPRETATION: 20-49 YRS: [...] DESIRABLE: <130 MG/DL <110 MG/DL BORDERLINE-HIGH RISK: 130- 159 MG/DL 110-129 MG/DL HIGH RISK: >160 MG/DL >130 MG/DL *CHILDREN AND ADOLESCENTS REPRESENTS INDIVIDUALA AGED 2-19 YEARS EXCLUSIVE. BUN 14 mg/dL 8-23 [facility] ([facility] CHRONIC KIDNEY DISEASE STAGING PER NKF: MALE GFR INTERPRETATION: 20-49 YRS: [...] DESIRABLE: <130 MG/DL <110 MG/DL BORDERLINE-HIGH RISK: 130- 159 MG/DL 110-129 MG/DL HIGH RISK: >160 MG/DL >130 MG/DL *CHILDREN AND ADOLESCENTS REPRESENTS INDIVIDUALA AGED 2-19 YEARS EXCLUSIVE. Creat 0.9 mg/dL 0.7-1.2 [facility] ([facility] CHRONIC KIDNEY DISEASE STAGING PER NKF: MALE GFR INTERPRETATION: 20-49 YRS: [...] DESIRABLE: <130 MG/DL <110 MG/DL BORDERLINE-HIGH RISK: 130- 159 MG/DL 110-129 MG/DL HIGH RISK: >160 MG/DL >130 MG/DL *CHILDREN AND ADOLESCENTS REPRESENTS INDIVIDUALA AGED 2-19 YEARS EXCLUSIVE. CL 104.5 mmol/L 98.0-107.0 [facility] ([facility] CHRONIC KIDNEY DISEASE STAGING PER NKF: MALE GFR INTERPRETATION: 20-49 YRS: [...] DESIRABLE: <130 MG/DL <110 MG/DL BORDERLINE-HIGH RISK: 130- 159 MG/DL 110-129 MG/DL HIGH RISK: >160 MG/DL >130 MG/DL *CHILDREN AND ADOLESCENTS REPRESENTS INDIVIDUALA AGED 2-19 YEARS EXCLUSIVE. Na 141 mmol/L 136-145 [facility] CHRONIC KIDNEY DISEASE STAGING PER NKF: MALE GFR INTERPRETATION: 20-49 YRS: [...] DESIRABLE: <130 MG/DL <110 MG/DL BORDERLINE-HIGH RISK: 130- 159 MG/DL 110-129 MG/DL HIGH RISK: >160 MG/DL >130 MG/DL *CHILDREN AND ADOLESCENTS REPRESENTS INDIVIDUALA AGED 2-19 YEARS EXCLUSIVE. K 4.3 mmol/L 3.5-5.1 [facility] ([facility] CHRONIC KIDNEY DISEASE STAGING PER NKF: MALE GFR INTERPRETATION: 20-49 YRS: [...] DESIRABLE: <130 MG/DL <110 MG/DL BORDERLINE-HIGH RISK: 130- 159 MG/DL 110-129 MG/DL HIGH RISK: >160 MG/DL >130 MG/DL *CHILDREN AND ADOLESCENTS REPRESENTS INDIVIDUALA AGED 2-19 YEARS EXCLUSIVE. TP 6.7 g/dL 6.6-8.7 [facility] ([facility] CHRONIC KIDNEY DISEASE STAGING PER NKF: MALE GFR INTERPRETATION: 20-49 YRS: [...] DESIRABLE: <130 MG/DL <110 MG/DL BORDERLINE-HIGH RISK: 130- 159 MG/DL 110-129 MG/DL HIGH RISK: >160 MG/DL >130 MG/DL *CHILDREN AND ADOLESCENTS REPRESENTS INDIVIDUALA AGED 2-19 YEARS EXCLUSIVE. Co2 24.4 mmol/L 22.0-29.0 [facility] ([facility] CHRONIC KIDNEY DISEASE STAGING PER NKF: MALE GFR INTERPRETATION: 20-49 YRS: [...] DESIRABLE: <130 MG/DL <110 MG/DL BORDERLINE-HIGH RISK: 130- 159 MG/DL 110-129 MG/DL HIGH RISK: >160 MG/DL >130 MG/DL *CHILDREN AND ADOLESCENTS REPRESENTS INDIVIDUALA AGED 2-19 YEARS EXCLUSIVE. CA 9.3 mg/dL 8.6-10.2 [facility] ([facility] CHRONIC KIDNEY DISEASE STAGING PER NKF: MALE GFR INTERPRETATION: 20-49 YRS: [...] DESIRABLE: <130 MG/DL <110 MG/DL BORDERLINE-HIGH RISK: 130- 159 MG/DL 110-129 MG/DL HIGH RISK: >160 MG/DL >130 MG/DL *CHILDREN AND ADOLESCENTS REPRESENTS INDIVIDUALA AGED 2-19 YEARS EXCLUSIVE. A/G Ratio 2.0 CALC [facility] ([facility] CHRONIC KIDNEY DISEASE STAGING PER NKF: MALE GFR INTERPRETATION: 20-49 YRS: [...] DESIRABLE: <130 MG/DL <110 MG/DL BORDERLINE-HIGH RISK: 130- 159 MG/DL 110-129 MG/DL HIGH RISK: >160 MG/DL >130 MG/DL *CHILDREN AND ADOLESCENTS REPRESENTS INDIVIDUALA AGED 2-19 YEARS EXCLUSIVE. Globulin 2.3 CALC [facility] ([facility] CHRONIC KIDNEY DISEASE STAGING PER NKF: MALE GFR INTERPRETATION: 20-49 YRS: [...] DESIRABLE: <130 MG/DL <110 MG/DL BORDERLINE-HIGH RISK: 130- 159 MG/DL 110-129 MG/DL HIGH RISK: >160 MG/DL >130 MG/DL *CHILDREN AND ADOLESCENTS REPRESENTS INDIVIDUALA AGED 2-19 YEARS EXCLUSIVE. Alb 4.5 g/dL 3.5-5.2 [facility] ([facility] CHRONIC KIDNEY DISEASE STAGING PER NKF: MALE GFR INTERPRETATION: 20-49 YRS: [...] DESIRABLE: <130 MG/DL <110 MG/DL BORDERLINE-HIGH RISK: 130- 159 MG/DL 110-129 MG/DL HIGH RISK: >160 MG/DL >130 MG/DL *CHILDREN AND ADOLESCENTS REPRESENTS INDIVIDUALA AGED 2-19 YEARS EXCLUSIVE. Ast (Sgot) 22 U/L 0-40 [facility] ([facility] CHRONIC KIDNEY DISEASE STAGING PER NKF: MALE GFR INTERPRETATION: 20-49 YRS: [...] DESIRABLE: <130 MG/DL <110 MG/DL BORDERLINE-HIGH RISK: 130- 159 MG/DL 110-129 MG/DL HIGH RISK: >160 MG/DL >130 MG/DL *CHILDREN AND ADOLESCENTS REPRESENTS INDIVIDUALA AGED 2-19 YEARS EXCLUSIVE. Alt (SGPT) 20 U/L 0-41 [facility] ([facility] CHRONIC KIDNEY DISEASE STAGING PER NKF: MALE GFR INTERPRETATION: 20-49 YRS: [...] DESIRABLE: <130 MG/DL <110 MG/DL BORDERLINE-HIGH RISK: 130- 159 MG/DL 110-129 MG/DL HIGH RISK: >160 MG/DL >130 MG/DL *CHILDREN AND ADOLESCENTS REPRESENTS INDIVIDUALA AGED 2-19 YEARS EXCLUSIVE. Alp 68.3 U/L 40-129 [facility] ([facility] CHRONIC KIDNEY DISEASE STAGING PER NKF: MALE GFR INTERPRETATION: 20-49 YRS: [...] DESIRABLE: <130 MG/DL <110 MG/DL BORDERLINE-HIGH RISK: 130- 159 MG/DL 110-129 MG/DL HIGH RISK: >160 MG/DL >130 MG/DL *CHILDREN AND ADOLESCENTS REPRESENTS INDIVIDUALA AGED 2-19 YEARS EXCLUSIVE. Tbili 0.35 mg/dL 0.0-1.2 [facility] ([facility] CHRONIC KIDNEY DISEASE STAGING PER NKF: MALE GFR INTERPRETATION: 20-49 YRS: [...] DESIRABLE: <130 MG/DL <110 MG/DL BORDERLINE-HIGH RISK: 130- 159 MG/DL 110-129 MG/DL HIGH RISK: >160 MG/DL >130 MG/DL *CHILDREN AND ADOLESCENTS REPRESENTS INDIVIDUALA AGED 2-19 YEARS EXCLUSIVE. Anion Gap 16 mmol/L [facility] ([facility] CHRONIC KIDNEY DISEASE STAGING PER NKF: MALE GFR INTERPRETATION: 20-49 YRS: [...] DESIRABLE: <130 MG/DL <110 MG/DL BORDERLINE-HIGH RISK: 130- 159 MG/DL 110-129 MG/DL HIGH RISK: >160 MG/DL >130 MG/DL *CHILDREN AND ADOLESCENTS REPRESENTS INDIVIDUALA AGED 2-19 YEARS EXCLUSIVE. Osmolality-Calculated 283.1 CALC [facility] ([facility] CHRONIC KIDNEY DISEASE STAGING PER NKF: MALE GFR INTERPRETATION: 20-49 YRS: [...] DESIRABLE: <130 MG/DL <110 MG/DL BORDERLINE-HIGH RISK: 130- 159 MG/DL 110-129 MG/DL HIGH RISK: >160 MG/DL >130 MG/DL *CHILDREN AND ADOLESCENTS REPRESENTS INDIVIDUALA AGED 2-19 YEARS EXCLUSIVE. eGFR 101 # [facility] ( [facility] CHRONIC KIDNEY DISEASE STAGING PER NKF: MALE GFR INTERPRETATION: 20-49 YRS: [...] DESIRABLE: <130 MG/DL <110 MG/DL BORDERLINE-HIGH RISK: 130- 159 MG/DL 110-129 MG/DL HIGH RISK: >160 MG/DL >130 MG/DL *CHILDREN AND ADOLESCENTS REPRESENTS INDIVIDUALA AGED 2-19 YEARS EXCLUSIVE. eGFR Non-Afr. Guatemalan 87 # MEDENT ([facility] CHRONIC KIDNEY DISEASE STAGING PER NKF: MALE GFR INTERPRETATION: 20-49 YRS: [...] DESIRABLE: <130 MG/DL <110 MG/DL BORDERLINE-HIGH RISK: 130- 159 MG/DL 110-129 MG/DL HIGH RISK: >160 MG/DL >130 MG/DL *CHILDREN AND ADOLESCENTS REPRESENTS INDIVIDUALA AGED 2-19 YEARS EXCLUSIVE. ID Date Data Source [id number] 07/12/2020 09:13:00 AM EST [facility] ([facility] Name Value Range Interpretation Code Description Data Neyda rce(s) Supporting Document(s) Thyrotropin [Units/volume] in Serum or Plasma 0.343 ulU/mL 0. 60-4.8 Below low normal [facility] ([facility] ) ID Date Data Source [id number] 07/12/2020 09:13:00 AM EST [facility] ([facility] Name Value Range Interpretation Code Description Data Neyda rce(s) Supporting Document(s) Hemoglobin A1c/Hemoglobin.total in Blood 7.0 % 4.50-6.20 Above high normal [facility] ([facility] ID Date Data Source [id number] 05/04/2020 12:16:00 PM EST MEDENT ([facility]) Name Value Range Interpretation Code Description Data Neyda rce(s) Supporting Document(s) Surgical pathology study Laboratory test [facility] FINAL DIAGNOSIS A - Gastric polyp, biopsy: Gastric mucosa with foveolar hyperplasia and reactive changes. No inflammatory change is noted. B - Antrum, biopsy: Antral mucosa, with minimal nonspecific chronic inflammation. No H. pylori is noted. C - Biopsy below Z line: Cardia type mucosa. No inflammatory change or intestinal metaplasia is noted. 05/05/20201157 CLINICAL DIAGNOSIS Screening, last scope [id number]/[id number] GROSS DIAGNOSIS A - Received in formalin labeled "gastric polyp biopsy" is a 0.4 x 0.2 x 0.2 cm aggregate of mucosal fragments. All in one. B - Received in formalin labeled "antrum biopsy" is a 0.5 x 0.2 x 0.2 cm aggregate of mucosal fragments. All in one. C - Received in formalin labeled "biopsy below Z-line" is a 0.4 x 0.2 x 0.2 cm aggregate of mucosal fragments. All in one. - 05/05/2020723 Signed Daryl Martinez MD 05/05/2020 1349 ID Date Data Source [id number] 04/29/2020 10:00:00 AM EDT [facility] Name Value Range Interpretation Code Description Data [facility] rce(s) Supporting Document(s) SARS coronavirus 2 RNA [facility] This lab was ordered by [facility] and reported by [facility]. ID Date Data Source [id number] 04/13/2020 09:06:00 AM EDT MED[facility] ([facility] Name Value Range Interpretation Code Description Data Neyda rce(s) Supporting Document(s) Trig 149 mg/dL 35-200 [facility] ([facility] CHRONIC KIDNEY DISEASE STAGING PER NKF: MALE GFR INTERPRETATION: 20-49 YRS: [...] DESIRABLE: <130 MG/DL <110 MG/DL BORDERLINE-HIGH RISK: 130- 159 MG/DL 110-129 MG/DL HIGH RISK: >160 MG/DL >130 MG/DL *CHILDREN AND ADOLESCENTS REPRESENTS INDIVIDUALA AGED 2-19 YEARS EXCLUSIVE. Chol 152 mg/dL 0-200 [facility] CHRONIC KIDNEY DISEASE STAGING PER NKF: MALE GFR INTERPRETATION: 20-49 YRS: [...] DESIRABLE: <130 MG/DL <110 MG/DL BORDERLINE-HIGH RISK: 130- 159 MG/DL 110-129 MG/DL HIGH RISK: >160 MG/DL >130 MG/DL *CHILDREN AND ADOLESCENTS REPRESENTS INDIVIDUALA AGED 2-19 YEARS EXCLUSIVE. LDL_C 54 Calc 75-129 Below low normal [facility] ( [facility] CHRONIC KIDNEY DISEASE STAGING PER NKF: MALE GFR INTERPRETATION: 20-49 YRS: [...] DESIRABLE: <130 MG/DL <110 MG/DL BORDERLINE-HIGH RISK: 130- 159 MG/DL 110-129 MG/DL HIGH RISK: >160 MG/DL >130 MG/DL *CHILDREN AND ADOLESCENTS REPRESENTS INDIVIDUALA AGED 2-19 YEARS EXCLUSIVE. Cho/HDL Ratio 2.2 CALC MED[facility] ([facility] CHRONIC KIDNEY DISEASE STAGING PER NKF: MALE GFR INTERPRETATION: 20-49 YRS: [...] DESIRABLE: <130 MG/DL <110 MG/DL BORDERLINE-HIGH RISK: 130- 159 MG/DL 110-129 MG/DL HIGH RISK: >160 MG/DL >130 MG/DL *CHILDREN AND ADOLESCENTS REPRESENTS INDIVIDUALA AGED 2-19 YEARS EXCLUSIVE. Cholesterol in HDL [Mass/volume] in Serum or Plasma 68 mg/dL 35-55 Above high normal [facility] ([facility] ) CHRONIC KIDNEY DISEASE STAGING PER NKF: MALE GFR INTERPRETATION: 20-49 YRS: [...] DESIRABLE: <130 MG/DL <110 MG/DL BORDERLINE-HIGH RISK: 130- 159 MG/DL 110-129 MG/DL HIGH RISK: >160 MG/DL >130 MG/DL *CHILDREN AND ADOLESCENTS REPRESENTS INDIVIDUALA AGED 2-19 YEARS EXCLUSIVE. ID Date Data Source [id number] 04/13/2020 09:06:00 AM EDT [facility] ([facility] Name Value Range Interpretation Code Description Data Neyda rce(s) Supporting Document(s) BUN 18 mg/dL 8-23 [facility] ([facility] CHRONIC KIDNEY DISEASE STAGING PER NKF: MALE GFR INTERPRETATION: 20-49 YRS: [...] DESIRABLE: <130 MG/DL <110 MG/DL BORDERLINE-HIGH RISK: 130- 159 MG/DL 110-129 MG/DL HIGH RISK: >160 MG/DL >130 MG/DL *CHILDREN AND ADOLESCENTS REPRESENTS INDIVIDUALA AGED 2-19 YEARS EXCLUSIVE. Glu 148 mg/dL 70-110 Above high normal [facility] ([facility] CHRONIC KIDNEY DISEASE STAGING PER NKF: MALE GFR INTERPRETATION: 20-49 YRS: [...] DESIRABLE: <130 MG/DL <110 MG/DL BORDERLINE-HIGH RISK: 130- 159 MG/DL 110-129 MG/DL HIGH RISK: >160 MG/DL >130 MG/DL *CHILDREN AND ADOLESCENTS REPRESENTS INDIVIDUALA AGED 2-19 YEARS EXCLUSIVE. Creat 1.0 mg/dL 0.7-1.2 [facility] ([facility] CHRONIC KIDNEY DISEASE STAGING PER NKF: MALE GFR INTERPRETATION: 20-49 YRS: [...] DESIRABLE: <130 MG/DL <110 MG/DL BORDERLINE-HIGH RISK: 130- 159 MG/DL 110-129 MG/DL HIGH RISK: >160 MG/DL >130 MG/DL *CHILDREN AND ADOLESCENTS REPRESENTS INDIVIDUALA AGED 2-19 YEARS EXCLUSIVE. BUN/Creatinine Ratio 19.1 CALC [facility] CHRONIC KIDNEY DISEASE STAGING PER NKF: MALE GFR INTERPRETATION: 20-49 YRS: [...] DESIRABLE: <130 MG/DL <110 MG/DL BORDERLINE-HIGH RISK: 130- 159 MG/DL 110-129 MG/DL HIGH RISK: >160 MG/DL >130 MG/DL *CHILDREN AND ADOLESCENTS REPRESENTS INDIVIDUALA AGED 2-19 YEARS EXCLUSIVE. Na 137 mmol/L 136-145 [facility] ([facility] CHRONIC KIDNEY DISEASE STAGING PER NKF: MALE GFR INTERPRETATION: 20-49 YRS: [...] DESIRABLE: <130 MG/DL <110 MG/DL BORDERLINE-HIGH RISK: 130- 159 MG/DL 110-129 MG/DL HIGH RISK: >160 MG/DL >130 MG/DL *CHILDREN AND ADOLESCENTS REPRESENTS INDIVIDUALA AGED 2-19 YEARS EXCLUSIVE. CL 100.2 mmol/L 98.0-107.0 [facility] ([facility] CHRONIC KIDNEY DISEASE STAGING PER NKF: MALE GFR INTERPRETATION: 20-49 YRS: [...] DESIRABLE: <130 MG/DL <110 MG/DL BORDERLINE-HIGH RISK: 130- 159 MG/DL 110-129 MG/DL HIGH RISK: >160 MG/DL >130 MG/DL *CHILDREN AND ADOLESCENTS REPRESENTS INDIVIDUALA AGED 2-19 YEARS EXCLUSIVE. K 4.9 mmol/L 3.5-5.1 [facility] ([facility] CHRONIC KIDNEY DISEASE STAGING PER NKF: MALE GFR INTERPRETATION: 20-49 YRS: [...] DESIRABLE: <130 MG/DL <110 MG/DL BORDERLINE-HIGH RISK: 130- 159 MG/DL 110-129 MG/DL HIGH RISK: >160 MG/DL >130 MG/DL *CHILDREN AND ADOLESCENTS REPRESENTS INDIVIDUALA AGED 2-19 YEARS EXCLUSIVE. CA 9.1 mg/dL 8.6-10.2 [facility] CHRONIC KIDNEY DISEASE STAGING PER NKF: MALE GFR INTERPRETATION: 20-49 YRS: [...] DESIRABLE: <130 MG/DL <110 MG/DL BORDERLINE-HIGH RISK: 130- 159 MG/DL 110-129 MG/DL HIGH RISK: >160 MG/DL >130 MG/DL *CHILDREN AND ADOLESCENTS REPRESENTS INDIVIDUALA AGED 2-19 YEARS EXCLUSIVE. Co2 22.9 mmol/L 22.0-29.0 [facility] ([facility] CHRONIC KIDNEY DISEASE STAGING PER NKF: MALE GFR INTERPRETATION: 20-49 YRS: [...] DESIRABLE: <130 MG/DL <110 MG/DL BORDERLINE-HIGH RISK: 130- 159 MG/DL 110-129 MG/DL HIGH RISK: >160 MG/DL >130 MG/DL *CHILDREN AND ADOLESCENTS REPRESENTS INDIVIDUALA AGED 2-19 YEARS EXCLUSIVE. TP 6.9 g/dL 6.6-8.7 [facility] ([facility] CHRONIC KIDNEY DISEASE STAGING PER NKF: MALE GFR INTERPRETATION: 20-49 YRS: [...] DESIRABLE: <130 MG/DL <110 MG/DL BORDERLINE-HIGH RISK: 130- 159 MG/DL 110-129 MG/DL HIGH RISK: >160 MG/DL >130 MG/DL *CHILDREN AND ADOLESCENTS REPRESENTS INDIVIDUALA AGED 2-19 YEARS EXCLUSIVE. A/G Ratio 1.9 CALC [facility] ([facility] CHRONIC KIDNEY DISEASE STAGING PER NKF: MALE GFR INTERPRETATION: 20-49 YRS: [...] DESIRABLE: <130 MG/DL <110 MG/DL BORDERLINE-HIGH RISK: 130- 159 MG/DL 110-129 MG/DL HIGH RISK: >160 MG/DL >130 MG/DL *CHILDREN AND ADOLESCENTS REPRESENTS INDIVIDUALA AGED 2-19 YEARS EXCLUSIVE. Alb 4.5 g/dL 3.5-5.2 [facility] ([facility] CHRONIC KIDNEY DISEASE STAGING PER NKF: MALE GFR INTERPRETATION: 20-49 YRS: [...] DESIRABLE: <130 MG/DL <110 MG/DL BORDERLINE-HIGH RISK: 130- 159 MG/DL 110-129 MG/DL HIGH RISK: >160 MG/DL >130 MG/DL *CHILDREN AND ADOLESCENTS REPRESENTS INDIVIDUALA AGED 2-19 YEARS EXCLUSIVE. Alt (SGPT) 14 U/L 0-41 [facility] ([facility] CHRONIC KIDNEY DISEASE STAGING PER NKF: MALE GFR INTERPRETATION: 20-49 YRS: [...] DESIRABLE: <130 MG/DL <110 MG/DL BORDERLINE-HIGH RISK: 130- 159 MG/DL 110-129 MG/DL HIGH RISK: >160 MG/DL >130 MG/DL *CHILDREN AND ADOLESCENTS REPRESENTS INDIVIDUALA AGED 2-19 YEARS EXCLUSIVE. Globulin 2.4 CALC [facility] ([facility] CHRONIC KIDNEY DISEASE STAGING PER NKF: MALE GFR INTERPRETATION: 20-49 YRS: [...] DESIRABLE: <130 MG/DL <110 MG/DL BORDERLINE-HIGH RISK: 130- 159 MG/DL 110-129 MG/DL HIGH RISK: >160 MG/DL >130 MG/DL *CHILDREN AND ADOLESCENTS REPRESENTS INDIVIDUALA AGED 2-19 YEARS EXCLUSIVE. Alp 66.1 U/L 40-129 [facility] CHRONIC KIDNEY DISEASE STAGING PER NKF: MALE GFR INTERPRETATION: 20-49 YRS: [...] DESIRABLE: <130 MG/DL <110 MG/DL BORDERLINE-HIGH RISK: 130- 159 MG/DL 110-129 MG/DL HIGH RISK: >160 MG/DL >130 MG/DL *CHILDREN AND ADOLESCENTS REPRESENTS INDIVIDUALA AGED 2-19 YEARS EXCLUSIVE. Ast (Sgot) 17 U/L 0-40 [facility] ([facility] CHRONIC KIDNEY DISEASE STAGING PER NKF: MALE GFR INTERPRETATION: 20-49 YRS: [...] DESIRABLE: <130 MG/DL <110 MG/DL BORDERLINE-HIGH RISK: 130- 159 MG/DL 110-129 MG/DL HIGH RISK: >160 MG/DL >130 MG/DL *CHILDREN AND ADOLESCENTS REPRESENTS INDIVIDUALA AGED 2-19 YEARS EXCLUSIVE. Tbili 0.26 mg/dL 0.0-1.2 [facility] ([facility] CHRONIC KIDNEY DISEASE STAGING PER NKF: MALE GFR INTERPRETATION: 20-49 YRS: [...] DESIRABLE: <130 MG/DL <110 MG/DL BORDERLINE-HIGH RISK: 130- 159 MG/DL 110-129 MG/DL HIGH RISK: >160 MG/DL >130 MG/DL *CHILDREN AND ADOLESCENTS REPRESENTS INDIVIDUALA AGED 2-19 YEARS EXCLUSIVE. Anion Gap 18 mmol/L [facility] CHRONIC KIDNEY DISEASE STAGING PER NKF: MALE GFR INTERPRETATION: 20-49 YRS: [...] DESIRABLE: <130 MG/DL <110 MG/DL BORDERLINE-HIGH RISK: 130- 159 MG/DL 110-129 MG/DL HIGH RISK: >160 MG/DL >130 MG/DL *CHILDREN AND ADOLESCENTS REPRESENTS INDIVIDUALA AGED 2-19 YEARS EXCLUSIVE. Osmolality-Calculated 277.8 CALC MED [facility] ([facility] CHRONIC KIDNEY DISEASE STAGING PER NKF: MALE GFR INTERPRETATION: 20-49 YRS: [...] DESIRABLE: <130 MG/DL <110 MG/DL BORDERLINE-HIGH RISK: 130- 159 MG/DL 110-129 MG/DL HIGH RISK: >160 MG/DL >130 MG/DL *CHILDREN AND ADOLESCENTS REPRESENTS INDIVIDUALA AGED 2-19 YEARS EXCLUSIVE. eGFR 89 # [facility] ( [facility] CKD-EPI eGFR Non-Afr. Guatemalan 77 # [facility] ([facility] CKD-EPI ID Date Data Source [id number] 04/13/2020 09:05:00 AM EDT [facility] ([facility] Name Value Range Interpretation Code Description Data Neyda rce(s) Supporting Document(s) Hemoglobin A1c/Hemoglobin.total in Blood 7.3 % 4.50-6.20 Above high normal [facility] ([facility] ID Date Data Source [id number] 04/13/2020 09:05:00 AM EDT [facility] ([facility] Name Value Range Interpretation Code Description Data Neyda rce(s) Supporting Document(s) Prostate specific Ag [Mass/volume] in Serum or Plasma 1.54 ng/mL 0.0- 4.0 [facility] ([facility] ID Date Data Source [id number] 04/13/2020 09:04:00 AM EDT [facility] ([facility] Name Value Range Interpretation Code Description Data Neyda rce(s) Supporting Document(s) Thyrotropin [Units/volume] in Serum or Plasma 5.233 ulU/mL 0. 60-4.8 Above high normal [facility] ([facility] ) ID Date Data Source [id number] 01/08/2020 09:40:00 AM EDT MEDENT ([facility] Name Value Range Interpretation Code Description Data Neyda rce(s) Supporting Document(s) Hemoglobin A1c/Hemoglobin.total in Blood 7.4 % 4.50-6.20 Above high normal [facility] ([facility] ID Date Data Source [id number] 01/08/2020 09:40:00 AM EDT MED[facility] ([facility] Name Value Range Interpretation Code Description Data Neyda rce(s) Supporting Document(s) Chol 129 mg/dL 0-200 [facility] ([facility] NORMAL RANGES Age WBC RBC HGB HCT MCV PLT Adult M 4.1-10.9 4.20-6.30 12.0-18.0 37.0-51.0 80-97 140-440 Adult F 4.1-10.9 4.04-5.48 12.0-18.0 37.0-51.0 80-97 140-440 0 -1 Yr 5.0-20.0 3.9-5.9 15-18 MV: 44 MV: 91 MV: 277 2-9 Yr. 6.0-17.0 3.8-5.4 11-13 MV: 37 MV: 78 MV: 300 10 Yrs. 5.0-13.0 3.8-5.4 12-15 MV: 39 MV: 80 MV: 250 NOTE: * FOR ADULT BLACK MALES AND FEMALES, NORMAL WBC IS 2.9-7.7 K/ML * FOR ADULT BLACK MALES AND FEMALES, NORMAL RBC,HGB, AND HCT IS 5% LESS SOURCE FOR DATA: Viptable 1800 OPERATION MANUAL( AUTOMATED BLOOD COUNTS ANDDIFF.) APPENDIX B-3 CHRONIC KIDNEY DISEASE STAGING PER NKF: MALE GFR INTERPRETATION: 20-49 YRS: [...] DESIRABLE: <130 MG/DL <110 MG/DL BORDERLINE-HIGH RISK: 130- 159 MG/DL 110-129 MG/DL HIGH RISK: >160 MG/DL >130 MG/DL *CHILDREN AND ADOLESCENTS REPRESENTS INDIVIDUALA AGED 2-19 YEARS EXCLUSIVE. LDL_C 46 Calc 75-129 Below low normal [facility] ( [facility] NORMAL RANGES Age WBC RBC HGB HCT MCV PLT Adult M 4.1-10.9 4.20-6.30 12.0-18.0 37.0-51.0 80-97 140-440 Adult F 4.1-10.9 4.04-5.48 12.0-18.0 37.0-51.0 80-97 140-440 0 -1 Yr 5.0-20.0 3.9-5.9 15-18 MV: 44 MV: 91 MV: 277 2-9 Yr. 6.0-17.0 3.8-5.4 11-13 MV: 37 MV: 78 MV: 300 10 Yrs. 5.0-13.0 3.8-5.4 12-15 MV: 39 MV: 80 MV: 250 NOTE: * FOR ADULT BLACK MALES AND FEMALES, NORMAL WBC IS 2.9-7.7 K/ML * FOR ADULT BLACK MALES AND FEMALES, NORMAL RBC,HGB, AND HCT IS 5% LESS SOURCE FOR DATA: Viptable 1800 OPERATION MANUAL( AUTOMATED BLOOD COUNTS ANDDIFF.) APPENDIX B-3 CHRONIC KIDNEY DISEASE STAGING PER NKF: MALE GFR INTERPRETATION: 20-49 YRS: [...] DESIRABLE: <130 MG/DL <110 MG/DL BORDERLINE-HIGH RISK: 130- 159 MG/DL 110-129 MG/DL HIGH RISK: >160 MG/DL >130 MG/DL *CHILDREN AND ADOLESCENTS REPRESENTS INDIVIDUALA AGED 2-19 YEARS EXCLUSIVE. Trig 117 mg/dL 35-200 [facility] NORMAL RANGES Age WBC RBC HGB HCT MCV PLT Adult M 4.1-10.9 4.20-6.30 12.0-18.0 37.0-51.0 80-97 140-440 Adult F 4.1-10.9 4.04-5.48 12.0-18.0 37.0-51.0 80-97 140-440 0 -1 Yr 5.0-20.0 3.9-5.9 15-18 MV: 44 MV: 91 MV: 277 2-9 Yr. 6.0-17.0 3.8-5.4 11-13 MV: 37 MV: 78 MV: 300 10 Yrs. 5.0-13.0 3.8-5.4 12-15 MV: 39 MV: 80 MV: 250 NOTE: * FOR ADULT BLACK MALES AND FEMALES, NORMAL WBC IS 2.9-7.7 K/ML * FOR ADULT BLACK MALES AND FEMALES, NORMAL RBC,HGB, AND HCT IS 5% LESS SOURCE FOR DATA: Viptable 1800 OPERATION MANUAL( AUTOMATED BLOOD COUNTS ANDDIFF.) APPENDIX B-3 CHRONIC KIDNEY DISEASE STAGING PER NKF: MALE GFR INTERPRETATION: 20-49 YRS: [...] DESIRABLE: <130 MG/DL <110 MG/DL BORDERLINE-HIGH RISK: 130- 159 MG/DL 110-129 MG/DL HIGH RISK: >160 MG/DL >130 MG/DL *CHILDREN AND ADOLESCENTS REPRESENTS INDIVIDUALA AGED 2-19 YEARS EXCLUSIVE. Cholesterol in HDL [Mass/volume] in Serum or Plasma 59 mg/dL 35-55 Above high normal [facility] ([facility] ) NORMAL RANGES Age WBC RBC HGB HCT MCV PLT Adult M 4.1-10.9 4.20-6.30 12.0-18.0 37.0-51.0 80-97 140-440 Adult F 4.1-10.9 4.04-5.48 12.0-18.0 37.0-51.0 80-97 140-440 0 -1 Yr 5.0-20.0 3.9-5.9 15-18 MV: 44 MV: 91 MV: 277 2-9 Yr. 6.0-17.0 3.8-5.4 11-13 MV: 37 MV: 78 MV: 300 10 Yrs. 5.0-13.0 3.8-5.4 12-15 MV: 39 MV: 80 MV: 250 NOTE: * FOR ADULT BLACK MALES AND FEMALES, NORMAL WBC IS 2.9-7.7 K/ML * FOR ADULT BLACK MALES AND FEMALES, NORMAL RBC,HGB, AND HCT IS 5% LESS SOURCE FOR DATA: Viptable 1800 OPERATION MANUAL( AUTOMATED BLOOD COUNTS ANDDIFF.) APPENDIX B-3 CHRONIC KIDNEY DISEASE STAGING PER NKF: MALE GFR INTERPRETATION: 20-49 YRS: [...] DESIRABLE: <130 MG/DL <110 MG/DL BORDERLINE-HIGH RISK: 130- 159 MG/DL 110-129 MG/DL HIGH RISK: >160 MG/DL >130 MG/DL *CHILDREN AND ADOLESCENTS REPRESENTS INDIVIDUALA AGED 2-19 YEARS EXCLUSIVE. Cho/HDL Ratio 2.2 CALC [facility] ([facility] NORMAL RANGES Age WBC RBC HGB HCT MCV PLT Adult M 4.1-10.9 4.20-6.30 12.0-18.0 37.0-51.0 80-97 140-440 Adult F 4.1-10.9 4.04-5.48 12.0-18.0 37.0-51.0 80-97 140-440 0 -1 Yr 5.0-20.0 3.9-5.9 15-18 MV: 44 MV: 91 MV: 277 2-9 Yr. 6.0-17.0 3.8-5.4 11-13 MV: 37 MV: 78 MV: 300 10 Yrs. 5.0-13.0 3.8-5.4 12-15 MV: 39 MV: 80 MV: 250 NOTE: * FOR ADULT BLACK MALES AND FEMALES, NORMAL WBC IS 2.9-7.7 K/ML * FOR ADULT BLACK MALES AND FEMALES, NORMAL RBC,HGB, AND HCT IS 5% LESS SOURCE FOR DATA: Viptable 1800 OPERATION MANUAL( AUTOMATED BLOOD COUNTS ANDDIFF.) APPENDIX B-3 CHRONIC KIDNEY DISEASE STAGING PER NKF: MALE GFR INTERPRETATION: 20-49 YRS: [...] DESIRABLE: <130 MG/DL <110 MG/DL BORDERLINE-HIGH RISK: 130- 159 MG/DL 110-129 MG/DL HIGH RISK: >160 MG/DL >130 MG/DL *CHILDREN AND ADOLESCENTS REPRESENTS INDIVIDUALA AGED 2-19 YEARS EXCLUSIVE. ID Date Data Source [id number] 01/08/2020 09:40:00 AM EDT [facility] ([facility] Name Value Range Interpretation Code Description Data Neyda rce(s) Supporting Document(s) Glu 128 mg/dL 70-110 Above high normal [facility] NORMAL RANGES Age WBC RBC HGB HCT MCV PLT Adult M 4.1-10.9 4.20-6.30 12.0-18.0 37.0-51.0 80-97 140-440 Adult F 4.1-10.9 4.04-5.48 12.0-18.0 37.0-51.0 80-97 140-440 0 -1 Yr 5.0-20.0 3.9-5.9 15-18 MV: 44 MV: 91 MV: 277 2-9 Yr. 6.0-17.0 3.8-5.4 11-13 MV: 37 MV: 78 MV: 300 10 Yrs. 5.0-13.0 3.8-5.4 12-15 MV: 39 MV: 80 MV: 250 NOTE: * FOR ADULT BLACK MALES AND FEMALES, NORMAL WBC IS 2.9-7.7 K/ML * FOR ADULT BLACK MALES AND FEMALES, NORMAL RBC,HGB, AND HCT IS 5% LESS SOURCE FOR DATA: [employer]ie DYN 1800 OPERATION MANUAL( AUTOMATED BLOOD COUNTS ANDDIFF.) APPENDIX B-3 CHRONIC KIDNEY DISEASE STAGING PER NKF: MALE GFR INTERPRETATION: 20-49 YRS: [...] DESIRABLE: <130 MG/DL <110 MG/DL BORDERLINE-HIGH RISK: 130- 159 MG/DL 110-129 MG/DL HIGH RISK: >160 MG/DL >130 MG/DL *CHILDREN AND ADOLESCENTS REPRESENTS INDIVIDUALA AGED 2-19 YEARS EXCLUSIVE. BUN 21 mg/dL 8-23 [facility] NORMAL RANGES Age WBC RBC HGB HCT MCV PLT Adult M 4.1-10.9 4.20-6.30 12.0-18.0 37.0-51.0 80-97 140-440 Adult F 4.1-10.9 4.04-5.48 12.0-18.0 37.0-51.0 80-97 140-440 0 -1 Yr 5.0-20.0 3.9-5.9 15-18 MV: 44 MV: 91 MV: 277 2-9 Yr. 6.0-17.0 3.8-5.4 11-13 MV: 37 MV: 78 MV: 300 10 Yrs. 5.0-13.0 3.8-5.4 12-15 MV: 39 MV: 80 MV: 250 NOTE: * FOR ADULT BLACK MALES AND FEMALES, NORMAL WBC IS 2.9-7.7 K/ML * FOR ADULT BLACK MALES AND FEMALES, NORMAL RBC,HGB, AND HCT IS 5% LESS SOURCE FOR DATA: Viptable 1800 OPERATION MANUAL( AUTOMATED BLOOD COUNTS ANDDIFF.) APPENDIX B-3 CHRONIC KIDNEY DISEASE STAGING PER NKF: MALE GFR INTERPRETATION: 20-49 YRS: [...] DESIRABLE: <130 MG/DL <110 MG/DL BORDERLINE-HIGH RISK: 130- 159 MG/DL 110-129 MG/DL HIGH RISK: >160 MG/DL >130 MG/DL *CHILDREN AND ADOLESCENTS REPRESENTS INDIVIDUALA AGED 2-19 YEARS EXCLUSIVE. Creat 0.9 mg/dL 0.7-1.2 [facility] ([facility] NORMAL RANGES Age WBC RBC HGB HCT MCV PLT Adult M 4.1-10.9 4.20-6.30 12.0-18.0 37.0-51.0 80-97 140-440 Adult F 4.1-10.9 4.04-5.48 12.0-18.0 37.0-51.0 80-97 140-440 0 -1 Yr 5.0-20.0 3.9-5.9 15-18 MV: 44 MV: 91 MV: 277 2-9 Yr. 6.0-17.0 3.8-5.4 11-13 MV: 37 MV: 78 MV: 300 10 Yrs. 5.0-13.0 3.8-5.4 12-15 MV: 39 MV: 80 MV: 250 NOTE: * FOR ADULT BLACK MALES AND FEMALES, NORMAL WBC IS 2.9-7.7 K/ML * FOR ADULT BLACK MALES AND FEMALES, NORMAL RBC,HGB, AND HCT IS 5% LESS SOURCE FOR DATA: Viptable 1800 OPERATION MANUAL( AUTOMATED BLOOD COUNTS ANDDIFF.) APPENDIX B-3 CHRONIC KIDNEY DISEASE STAGING PER NKF: MALE GFR INTERPRETATION: 20-49 YRS: [...] DESIRABLE: <130 MG/DL <110 MG/DL BORDERLINE-HIGH RISK: 130- 159 MG/DL 110-129 MG/DL HIGH RISK: >160 MG/DL >130 MG/DL *CHILDREN AND ADOLESCENTS REPRESENTS INDIVIDUALA AGED 2-19 YEARS EXCLUSIVE. K 4.6 mmol/L 3.5-5.1 [facility] ([facility] NORMAL RANGES Age WBC RBC HGB HCT MCV PLT Adult M 4.1-10.9 4.20-6.30 12.0-18.0 37.0-51.0 80-97 140-440 Adult F 4.1-10.9 4.04-5.48 12.0-18.0 37.0-51.0 80-97 140-440 0 -1 Yr 5.0-20.0 3.9-5.9 15-18 MV: 44 MV: 91 MV: 277 2-9 Yr. 6.0-17.0 3.8-5.4 11-13 MV: 37 MV: 78 MV: 300 10 Yrs. 5.0-13.0 3.8-5.4 12-15 MV: 39 MV: 80 MV: 250 NOTE: * FOR ADULT BLACK MALES AND FEMALES, NORMAL WBC IS 2.9-7.7 K/ML * FOR ADULT BLACK MALES AND FEMALES, NORMAL RBC,HGB, AND HCT IS 5% LESS SOURCE FOR DATA: [employer] 1800 OPERATION MANUAL( AUTOMATED BLOOD COUNTS ANDDIFF.) APPENDIX B-3 CHRONIC KIDNEY DISEASE STAGING PER NKF: MALE GFR INTERPRETATION: 20-49 YRS: [...] DESIRABLE: <130 MG/DL <110 MG/DL BORDERLINE-HIGH RISK: 130- 159 MG/DL 110-129 MG/DL HIGH RISK: >160 MG/DL >130 MG/DL *CHILDREN AND ADOLESCENTS REPRESENTS INDIVIDUALA AGED 2-19 YEARS EXCLUSIVE. BUN/Creatinine Ratio 23.5 CALC [facility] ([facility] NORMAL RANGES Age WBC RBC HGB HCT MCV PLT Adult M 4.1-10.9 4.20-6.30 12.0-18.0 37.0-51.0 80-97 140-440 Adult F 4.1-10.9 4.04-5.48 12.0-18.0 37.0-51.0 80-97 140-440 0 -1 Yr 5.0-20.0 3.9-5.9 15-18 MV: 44 MV: 91 MV: 277 2-9 Yr. 6.0-17.0 3.8-5.4 11-13 MV: 37 MV: 78 MV: 300 10 Yrs. 5.0-13.0 3.8-5.4 12-15 MV: 39 MV: 80 MV: 250 NOTE: * FOR ADULT BLACK MALES AND FEMALES, NORMAL WBC IS 2.9-7.7 K/ML * FOR ADULT BLACK MALES AND FEMALES, NORMAL RBC,HGB, AND HCT IS 5% LESS SOURCE FOR DATA: [employer] 1800 OPERATION MANUAL( AUTOMATED BLOOD COUNTS ANDDIFF.) APPENDIX B-3 CHRONIC KIDNEY DISEASE STAGING PER NKF: MALE GFR INTERPRETATION: 20-49 YRS: [...] DESIRABLE: <130 MG/DL <110 MG/DL BORDERLINE-HIGH RISK: 130- 159 MG/DL 110-129 MG/DL HIGH RISK: >160 MG/DL >130 MG/DL *CHILDREN AND ADOLESCENTS REPRESENTS INDIVIDUALA AGED 2-19 YEARS EXCLUSIVE. Na 137 mmol/L 136-145 [facility] ([facility] NORMAL RANGES Age WBC RBC HGB HCT MCV PLT Adult M 4.1-10.9 4.20-6.30 12.0-18.0 37.0-51.0 80-97 140-440 Adult F 4.1-10.9 4.04-5.48 12.0-18.0 37.0-51.0 80-97 140-440 0 -1 Yr 5.0-20.0 3.9-5.9 15-18 MV: 44 MV: 91 MV: 277 2-9 Yr. 6.0-17.0 3.8-5.4 11-13 MV: 37 MV: 78 MV: 300 10 Yrs. 5.0-13.0 3.8-5.4 12-15 MV: 39 MV: 80 MV: 250 NOTE: * FOR ADULT BLACK MALES AND FEMALES, NORMAL WBC IS 2.9-7.7 K/ML * FOR ADULT BLACK MALES AND FEMALES, NORMAL RBC,HGB, AND HCT IS 5% LESS SOURCE FOR DATA: [employer] 1800 OPERATION MANUAL( AUTOMATED BLOOD COUNTS ANDDIFF.) APPENDIX B-3 CHRONIC KIDNEY DISEASE STAGING PER NKF: MALE GFR INTERPRETATION: 20-49 YRS: [...] DESIRABLE: <130 MG/DL <110 MG/DL BORDERLINE-HIGH RISK: 130- 159 MG/DL 110-129 MG/DL HIGH RISK: >160 MG/DL >130 MG/DL *CHILDREN AND ADOLESCENTS REPRESENTS INDIVIDUALA AGED 2-19 YEARS EXCLUSIVE. Co2 24.3 mmol/L 22.0-29.0 [facility] ([facility] NORMAL RANGES Age WBC RBC HGB HCT MCV PLT Adult M 4.1-10.9 4.20-6.30 12.0-18.0 37.0-51.0 80-97 140-440 Adult F 4.1-10.9 4.04-5.48 12.0-18.0 37.0-51.0 80-97 140-440 0 -1 Yr 5.0-20.0 3.9-5.9 15-18 MV: 44 MV: 91 MV: 277 2-9 Yr. 6.0-17.0 3.8-5.4 11-13 MV: 37 MV: 78 MV: 300 10 Yrs. 5.0-13.0 3.8-5.4 12-15 MV: 39 MV: 80 MV: 250 NOTE: * FOR ADULT BLACK MALES AND FEMALES, NORMAL WBC IS 2.9-7.7 K/ML * FOR ADULT BLACK MALES AND FEMALES, NORMAL RBC,HGB, AND HCT IS 5% LESS SOURCE FOR DATA: Viptable 1800 OPERATION MANUAL( AUTOMATED BLOOD COUNTS ANDDIFF.) APPENDIX B-3 CHRONIC KIDNEY DISEASE STAGING PER NKF: MALE GFR INTERPRETATION: 20-49 YRS: [...] DESIRABLE: <130 MG/DL <110 MG/DL BORDERLINE-HIGH RISK: 130- 159 MG/DL 110-129 MG/DL HIGH RISK: >160 MG/DL >130 MG/DL *CHILDREN AND ADOLESCENTS REPRESENTS INDIVIDUALA AGED 2-19 YEARS EXCLUSIVE. CL 101.3 mmol/L 98.0-107.0 [facility] ([facility] NORMAL RANGES Age WBC RBC HGB HCT MCV PLT Adult M 4.1-10.9 4.20-6.30 12.0-18.0 37.0-51.0 80-97 140-440 Adult F 4.1-10.9 4.04-5.48 12.0-18.0 37.0-51.0 80-97 140-440 0 -1 Yr 5.0-20.0 3.9-5.9 15-18 MV: 44 MV: 91 MV: 277 2-9 Yr. 6.0-17.0 3.8-5.4 11-13 MV: 37 MV: 78 MV: 300 10 Yrs. 5.0-13.0 3.8-5.4 12-15 MV: 39 MV: 80 MV: 250 NOTE: * FOR ADULT BLACK MALES AND FEMALES, NORMAL WBC IS 2.9-7.7 K/ML * FOR ADULT BLACK MALES AND FEMALES, NORMAL RBC,HGB, AND HCT IS 5% LESS SOURCE FOR DATA: Viptable 1800 OPERATION MANUAL( AUTOMATED BLOOD COUNTS ANDDIFF.) APPENDIX B-3 CHRONIC KIDNEY DISEASE STAGING PER NKF: MALE GFR INTERPRETATION: 20-49 YRS: [...] DESIRABLE: <130 MG/DL <110 MG/DL BORDERLINE-HIGH RISK: 130- 159 MG/DL 110-129 MG/DL HIGH RISK: >160 MG/DL >130 MG/DL *CHILDREN AND ADOLESCENTS REPRESENTS INDIVIDUALA AGED 2-19 YEARS EXCLUSIVE. CA 9.1 mg/dL 8.6-10.2 [facility] NORMAL RANGES Age WBC RBC HGB HCT MCV PLT Adult M 4.1-10.9 4.20-6.30 12.0-18.0 37.0-51.0 80-97 140-440 Adult F 4.1-10.9 4.04-5.48 12.0-18.0 37.0-51.0 80-97 140-440 0 -1 Yr 5.0-20.0 3.9-5.9 15-18 MV: 44 MV: 91 MV: 277 2-9 Yr. 6.0-17.0 3.8-5.4 11-13 MV: 37 MV: 78 MV: 300 10 Yrs. 5.0-13.0 3.8-5.4 12-15 MV: 39 MV: 80 MV: 250 NOTE: * FOR ADULT BLACK MALES AND FEMALES, NORMAL WBC IS 2.9-7.7 K/ML * FOR ADULT BLACK MALES AND FEMALES, NORMAL RBC,HGB, AND HCT IS 5% LESS SOURCE FOR DATA: Viptable 1800 OPERATION MANUAL( AUTOMATED BLOOD COUNTS ANDDIFF.) APPENDIX B-3 CHRONIC KIDNEY DISEASE STAGING PER NKF: MALE GFR INTERPRETATION: 20-49 YRS: [...] DESIRABLE: <130 MG/DL <110 MG/DL BORDERLINE-HIGH RISK: 130- 159 MG/DL 110-129 MG/DL HIGH RISK: >160 MG/DL >130 MG/DL *CHILDREN AND ADOLESCENTS REPRESENTS INDIVIDUALA AGED 2-19 YEARS EXCLUSIVE. Alb 4.2 g/dL 3.5-5.2 [facility] NORMAL RANGES Age WBC RBC HGB HCT MCV PLT Adult M 4.1-10.9 4.20-6.30 12.0-18.0 37.0-51.0 80-97 140-440 Adult F 4.1-10.9 4.04-5.48 12.0-18.0 37.0-51.0 80-97 140-440 0 -1 Yr 5.0-20.0 3.9-5.9 15-18 MV: 44 MV: 91 MV: 277 2-9 Yr. 6.0-17.0 3.8-5.4 11-13 MV: 37 MV: 78 MV: 300 10 Yrs. 5.0-13.0 3.8-5.4 12-15 MV: 39 MV: 80 MV: 250 NOTE: * FOR ADULT BLACK MALES AND FEMALES, NORMAL WBC IS 2.9-7.7 K/ML * FOR ADULT BLACK MALES AND FEMALES, NORMAL RBC,HGB, AND HCT IS 5% LESS SOURCE FOR DATA: Viptable 1800 OPERATION MANUAL( AUTOMATED BLOOD COUNTS ANDDIFF.) APPENDIX B-3 CHRONIC KIDNEY DISEASE STAGING PER NKF: MALE GFR INTERPRETATION: 20-49 YRS: [...] DESIRABLE: <130 MG/DL <110 MG/DL BORDERLINE-HIGH RISK: 130- 159 MG/DL 110-129 MG/DL HIGH RISK: >160 MG/DL >130 MG/DL *CHILDREN AND ADOLESCENTS REPRESENTS INDIVIDUALA AGED 2-19 YEARS EXCLUSIVE. TP 6.8 g/dL 6.6-8.7 [facility] ([facility] NORMAL RANGES Age WBC RBC HGB HCT MCV PLT Adult M 4.1-10.9 4.20-6.30 12.0-18.0 37.0-51.0 80-97 140-440 Adult F 4.1-10.9 4.04-5.48 12.0-18.0 37.0-51.0 80-97 140-440 0 -1 Yr 5.0-20.0 3.9-5.9 15-18 MV: 44 MV: 91 MV: 277 2-9 Yr. 6.0-17.0 3.8-5.4 11-13 MV: 37 MV: 78 MV: 300 10 Yrs. 5.0-13.0 3.8-5.4 12-15 MV: 39 MV: 80 MV: 250 NOTE: * FOR ADULT BLACK MALES AND FEMALES, NORMAL WBC IS 2.9-7.7 K/ML * FOR ADULT BLACK MALES AND FEMALES, NORMAL RBC,HGB, AND HCT IS 5% LESS SOURCE FOR DATA: Viptable 1800 OPERATION MANUAL( AUTOMATED BLOOD COUNTS ANDDIFF.) APPENDIX B-3 CHRONIC KIDNEY DISEASE STAGING PER NKF: MALE GFR INTERPRETATION: 20-49 YRS: [...] DESIRABLE: <130 MG/DL <110 MG/DL BORDERLINE-HIGH RISK: 130- 159 MG/DL 110-129 MG/DL HIGH RISK: >160 MG/DL >130 MG/DL *CHILDREN AND ADOLESCENTS REPRESENTS INDIVIDUALA AGED 2-19 YEARS EXCLUSIVE. Alp 66.3 U/L 40-129 [facility] NORMAL RANGES Age WBC RBC HGB HCT MCV PLT Adult M 4.1-10.9 4.20-6.30 12.0-18.0 37.0-51.0 80-97 140-440 Adult F 4.1-10.9 4.04-5.48 12.0-18.0 37.0-51.0 80-97 140-440 0 -1 Yr 5.0-20.0 3.9-5.9 15-18 MV: 44 MV: 91 MV: 277 2-9 Yr. 6.0-17.0 3.8-5.4 11-13 MV: 37 MV: 78 MV: 300 10 Yrs. 5.0-13.0 3.8-5.4 12-15 MV: 39 MV: 80 MV: 250 NOTE: * FOR ADULT BLACK MALES AND FEMALES, NORMAL WBC IS 2.9-7.7 K/ML * FOR ADULT BLACK MALES AND FEMALES, NORMAL RBC,HGB, AND HCT IS 5% LESS SOURCE FOR DATA: Viptable 1800 OPERATION MANUAL( AUTOMATED BLOOD COUNTS ANDDIFF.) APPENDIX B-3 CHRONIC KIDNEY DISEASE STAGING PER NKF: MALE GFR INTERPRETATION: 20-49 YRS: [...] DESIRABLE: <130 MG/DL <110 MG/DL BORDERLINE-HIGH RISK: 130- 159 MG/DL 110-129 MG/DL HIGH RISK: >160 MG/DL >130 MG/DL *CHILDREN AND ADOLESCENTS REPRESENTS INDIVIDUALA AGED 2-19 YEARS EXCLUSIVE. Globulin 2.6 [facility] ([facility] NORMAL RANGES Age WBC RBC HGB HCT MCV PLT Adult M 4.1-10.9 4.20-6.30 12.0-18.0 37.0-51.0 80-97 140-440 Adult F 4.1-10.9 4.04-5.48 12.0-18.0 37.0-51.0 80-97 140-440 0 -1 Yr 5.0-20.0 3.9-5.9 15-18 MV: 44 MV: 91 MV: 277 2-9 Yr. 6.0-17.0 3.8-5.4 11-13 MV: 37 MV: 78 MV: 300 10 Yrs. 5.0-13.0 3.8-5.4 12-15 MV: 39 MV: 80 MV: 250 NOTE: * FOR ADULT BLACK MALES AND FEMALES, NORMAL WBC IS 2.9-7.7 K/ML * FOR ADULT BLACK MALES AND FEMALES, NORMAL RBC,HGB, AND HCT IS 5% LESS SOURCE FOR DATA: Viptable 1800 OPERATION MANUAL( AUTOMATED BLOOD COUNTS ANDDIFF.) APPENDIX B-3 CHRONIC KIDNEY DISEASE STAGING PER NKF: MALE GFR INTERPRETATION: 20-49 YRS: [...] DESIRABLE: <130 MG/DL <110 MG/DL BORDERLINE-HIGH RISK: 130- 159 MG/DL 110-129 MG/DL HIGH RISK: >160 MG/DL >130 MG/DL *CHILDREN AND ADOLESCENTS REPRESENTS INDIVIDUALA AGED 2-19 YEARS EXCLUSIVE. A/G Ratio 1.6 [facility] ([facility] NORMAL RANGES Age WBC RBC HGB HCT MCV PLT Adult M 4.1-10.9 4.20-6.30 12.0-18.0 37.0-51.0 80-97 140-440 Adult F 4.1-10.9 4.04-5.48 12.0-18.0 37.0-51.0 80-97 140-440 0 -1 Yr 5.0-20.0 3.9-5.9 15-18 MV: 44 MV: 91 MV: 277 2-9 Yr. 6.0-17.0 3.8-5.4 11-13 MV: 37 MV: 78 MV: 300 10 Yrs. 5.0-13.0 3.8-5.4 12-15 MV: 39 MV: 80 MV: 250 NOTE: * FOR ADULT BLACK MALES AND FEMALES, NORMAL WBC IS 2.9-7.7 K/ML * FOR ADULT BLACK MALES AND FEMALES, NORMAL RBC,HGB, AND HCT IS 5% LESS SOURCE FOR DATA: Viptable 1800 OPERATION MANUAL( AUTOMATED BLOOD COUNTS ANDDIFF.) APPENDIX B-3 CHRONIC KIDNEY DISEASE STAGING PER NKF: MALE GFR INTERPRETATION: 20-49 YRS: [...] DESIRABLE: <130 MG/DL <110 MG/DL BORDERLINE-HIGH RISK: 130- 159 MG/DL 110-129 MG/DL HIGH RISK: >160 MG/DL >130 MG/DL *CHILDREN AND ADOLESCENTS REPRESENTS INDIVIDUALA AGED 2-19 YEARS EXCLUSIVE. Ast (Sgot) 23 U/L 0-40 [facility] ([facility] NORMAL RANGES Age WBC RBC HGB HCT MCV PLT Adult M 4.1-10.9 4.20-6.30 12.0-18.0 37.0-51.0 80-97 140-440 Adult F 4.1-10.9 4.04-5.48 12.0-18.0 37.0-51.0 80-97 140-440 0 -1 Yr 5.0-20.0 3.9-5.9 15-18 MV: 44 MV: 91 MV: 277 2-9 Yr. 6.0-17.0 3.8-5.4 11-13 MV: 37 MV: 78 MV: 300 10 Yrs. 5.0-13.0 3.8-5.4 12-15 MV: 39 MV: 80 MV: 250 NOTE: * FOR ADULT BLACK MALES AND FEMALES, NORMAL WBC IS 2.9-7.7 K/ML * FOR ADULT BLACK MALES AND FEMALES, NORMAL RBC,HGB, AND HCT IS 5% LESS SOURCE FOR DATA: Viptable 1800 OPERATION MANUAL( AUTOMATED BLOOD COUNTS ANDDIFF.) APPENDIX B-3 CHRONIC KIDNEY DISEASE STAGING PER NKF: MALE GFR INTERPRETATION: 20-49 YRS: [...] DESIRABLE: <130 MG/DL <110 MG/DL BORDERLINE-HIGH RISK: 130- 159 MG/DL 110-129 MG/DL HIGH RISK: >160 MG/DL >130 MG/DL *CHILDREN AND ADOLESCENTS REPRESENTS INDIVIDUALA AGED 2-19 YEARS EXCLUSIVE. Alt (SGPT) 21 U/L 0-41 [facility] ([facility] NORMAL RANGES Age WBC RBC HGB HCT MCV PLT Adult M 4.1-10.9 4.20-6.30 12.0-18.0 37.0-51.0 80-97 140-440 Adult F 4.1-10.9 4.04-5.48 12.0-18.0 37.0-51.0 80-97 140-440 0 -1 Yr 5.0-20.0 3.9-5.9 15-18 MV: 44 MV: 91 MV: 277 2-9 Yr. 6.0-17.0 3.8-5.4 11-13 MV: 37 MV: 78 MV: 300 10 Yrs. 5.0-13.0 3.8-5.4 12-15 MV: 39 MV: 80 MV: 250 NOTE: * FOR ADULT BLACK MALES AND FEMALES, NORMAL WBC IS 2.9-7.7 K/ML * FOR ADULT BLACK MALES AND FEMALES, NORMAL RBC,HGB, AND HCT IS 5% LESS SOURCE FOR DATA: Viptable 1800 OPERATION MANUAL( AUTOMATED BLOOD COUNTS ANDDIFF.) APPENDIX B-3 CHRONIC KIDNEY DISEASE STAGING PER NKF: MALE GFR INTERPRETATION: 20-49 YRS: [...] DESIRABLE: <130 MG/DL <110 MG/DL BORDERLINE-HIGH RISK: 130- 159 MG/DL 110-129 MG/DL HIGH RISK: >160 MG/DL >130 MG/DL *CHILDREN AND ADOLESCENTS REPRESENTS INDIVIDUALA AGED 2-19 YEARS EXCLUSIVE. Tbili 0.34 mg/dL 0.0-1.2 [facility] ([facility] NORMAL RANGES Age WBC RBC HGB HCT MCV PLT Adult M 4.1-10.9 4.20-6.30 12.0-18.0 37.0-51.0 80-97 140-440 Adult F 4.1-10.9 4.04-5.48 12.0-18.0 37.0-51.0 80-97 140-440 0 -1 Yr 5.0-20.0 3.9-5.9 15-18 MV: 44 MV: 91 MV: 277 2-9 Yr. 6.0-17.0 3.8-5.4 11-13 MV: 37 MV: 78 MV: 300 10 Yrs. 5.0-13.0 3.8-5.4 12-15 MV: 39 MV: 80 MV: 250 NOTE: * FOR ADULT BLACK MALES AND FEMALES, NORMAL WBC IS 2.9-7.7 K/ML * FOR ADULT BLACK MALES AND FEMALES, NORMAL RBC,HGB, AND HCT IS 5% LESS SOURCE FOR DATA: Viptable 1800 OPERATION MANUAL( AUTOMATED BLOOD COUNTS ANDDIFF.) APPENDIX B-3 CHRONIC KIDNEY DISEASE STAGING PER NKF: MALE GFR INTERPRETATION: 20-49 YRS: [...] DESIRABLE: <130 MG/DL <110 MG/DL BORDERLINE-HIGH RISK: 130- 159 MG/DL 110-129 MG/DL HIGH RISK: >160 MG/DL >130 MG/DL *CHILDREN AND ADOLESCENTS REPRESENTS INDIVIDUALA AGED 2-19 YEARS EXCLUSIVE. Anion Gap 16 mmol/L [facility] NORMAL RANGES Age WBC RBC HGB HCT MCV PLT Adult M 4.1-10.9 4.20-6.30 12.0-18.0 37.0-51.0 80-97 140-440 Adult F 4.1-10.9 4.04-5.48 12.0-18.0 37.0-51.0 80-97 140-440 0 -1 Yr 5.0-20.0 3.9-5.9 15-18 MV: 44 MV: 91 MV: 277 2-9 Yr. 6.0-17.0 3.8-5.4 11-13 MV: 37 MV: 78 MV: 300 10 Yrs. 5.0-13.0 3.8-5.4 12-15 MV: 39 MV: 80 MV: 250 NOTE: * FOR ADULT BLACK MALES AND FEMALES, NORMAL WBC IS 2.9-7.7 K/ML * FOR ADULT BLACK MALES AND FEMALES, NORMAL RBC,HGB, AND HCT IS 5% LESS SOURCE FOR DATA: Viptable 1800 OPERATION MANUAL( AUTOMATED BLOOD COUNTS ANDDIFF.) APPENDIX B-3 CHRONIC KIDNEY DISEASE STAGING PER NKF: MALE GFR INTERPRETATION: 20-49 YRS: [...] DESIRABLE: <130 MG/DL <110 MG/DL BORDERLINE-HIGH RISK: 130- 159 MG/DL 110-129 MG/DL HIGH RISK: >160 MG/DL >130 MG/DL *CHILDREN AND ADOLESCENTS REPRESENTS INDIVIDUALA AGED 2-19 YEARS EXCLUSIVE. eGFR 101 # [facility] ( [facility] NORMAL RANGES Age WBC RBC HGB HCT MCV PLT Adult M 4.1-10.9 4.20-6.30 12.0-18.0 37.0-51.0 80-97 140-440 Adult F 4.1-10.9 4.04-5.48 12.0-18.0 37.0-51.0 80-97 140-440 0 -1 Yr 5.0-20.0 3.9-5.9 15-18 MV: 44 MV: 91 MV: 277 2-9 Yr. 6.0-17.0 3.8-5.4 11-13 MV: 37 MV: 78 MV: 300 10 Yrs. 5.0-13.0 3.8-5.4 12-15 MV: 39 MV: 80 MV: 250 NOTE: * FOR ADULT BLACK MALES AND FEMALES, NORMAL WBC IS 2.9-7.7 K/ML * FOR ADULT BLACK MALES AND FEMALES, NORMAL RBC,HGB, AND HCT IS 5% LESS SOURCE FOR DATA: Viptable 1800 OPERATION MANUAL( AUTOMATED BLOOD COUNTS ANDDIFF.) APPENDIX B-3 CHRONIC KIDNEY DISEASE STAGING PER NKF: MALE GFR INTERPRETATION: 20-49 YRS: [...] DESIRABLE: <130 MG/DL <110 MG/DL BORDERLINE-HIGH RISK: 130- 159 MG/DL 110-129 MG/DL HIGH RISK: >160 MG/DL >130 MG/DL *CHILDREN AND ADOLESCENTS REPRESENTS INDIVIDUALA AGED 2-19 YEARS EXCLUSIVE. Osmolality-Calculated 278.7 [facility] ([facility] NORMAL RANGES Age WBC RBC HGB HCT MCV PLT Adult M 4.1-10.9 4.20-6.30 12.0-18.0 37.0-51.0 80-97 140-440 Adult F 4.1-10.9 4.04-5.48 12.0-18.0 37.0-51.0 80-97 140-440 0 -1 Yr 5.0-20.0 3.9-5.9 15-18 MV: 44 MV: 91 MV: 277 2-9 Yr. 6.0-17.0 3.8-5.4 11-13 MV: 37 MV: 78 MV: 300 10 Yrs. 5.0-13.0 3.8-5.4 12-15 MV: 39 MV: 80 MV: 250 NOTE: * FOR ADULT BLACK MALES AND FEMALES, NORMAL WBC IS 2.9-7.7 K/ML * FOR ADULT BLACK MALES AND FEMALES, NORMAL RBC,HGB, AND HCT IS 5% LESS SOURCE FOR DATA: Viptable 1800 OPERATION MANUAL( AUTOMATED BLOOD COUNTS ANDDIFF.) APPENDIX B-3 CHRONIC KIDNEY DISEASE STAGING PER NKF: MALE GFR INTERPRETATION: 20-49 YRS: [...] DESIRABLE: <130 MG/DL <110 MG/DL BORDERLINE-HIGH RISK: 130- 159 MG/DL 110-129 MG/DL HIGH RISK: >160 MG/DL >130 MG/DL *CHILDREN AND ADOLESCENTS REPRESENTS INDIVIDUALA AGED 2-19 YEARS EXCLUSIVE. eGFR Non-Afr. Guatemalan 87 # [facility] ([facility] NORMAL RANGES Age WBC RBC HGB HCT MCV PLT Adult M 4.1-10.9 4.20-6.30 12.0-18.0 37.0-51.0 80-97 140-440 Adult F 4.1-10.9 4.04-5.48 12.0-18.0 37.0-51.0 80-97 140-440 0 -1 Yr 5.0-20.0 3.9-5.9 15-18 MV: 44 MV: 91 MV: 277 2-9 Yr. 6.0-17.0 3.8-5.4 11-13 MV: 37 MV: 78 MV: 300 10 Yrs. 5.0-13.0 3.8-5.4 12-15 MV: 39 MV: 80 MV: 250 NOTE: * FOR ADULT BLACK MALES AND FEMALES, NORMAL WBC IS 2.9-7.7 K/ML * FOR ADULT BLACK MALES AND FEMALES, NORMAL RBC,HGB, AND HCT IS 5% LESS SOURCE FOR DATA: Viptable 1800 OPERATION MANUAL( AUTOMATED BLOOD COUNTS ANDDIFF.) APPENDIX B-3 CHRONIC KIDNEY DISEASE STAGING PER NKF: MALE GFR INTERPRETATION: 20-49 YRS: [...] DESIRABLE: <130 MG/DL <110 MG/DL BORDERLINE-HIGH RISK: 130- 159 MG/DL 110-129 MG/DL HIGH RISK: >160 MG/DL >130 MG/DL *CHILDREN AND ADOLESCENTS REPRESENTS INDIVIDUALA AGED 2-19 YEARS EXCLUSIVE. ID Date Data Source [id number] 01/08/2020 09:40:00 AM [facility] ([facility] Name Value Range Interpretation Code Description Data Neyda rce(s) Supporting Document(s) HGB 13.4 g/dL 12.0-18.0 [facility] ([facility] NORMAL RANGES Age WBC RBC HGB HCT MCV PLT Adult M 4.1-10.9 4.20-6.30 12.0-18.0 37.0-51.0 80-97 140-440 Adult F 4.1-10.9 4.04-5.48 12.0-18.0 37.0-51.0 80-97 140-440 0 -1 Yr 5.0-20.0 3.9-5.9 15-18 MV: 44 MV: 91 MV: 277 2-9 Yr. 6.0-17.0 3.8-5.4 11-13 MV: 37 MV: 78 MV: 300 10 Yrs. 5.0-13.0 3.8-5.4 12-15 MV: 39 MV: 80 MV: 250 NOTE: * FOR ADULT BLACK MALES AND FEMALES, NORMAL WBC IS 2.9-7.7 K/ML * FOR ADULT BLACK MALES AND FEMALES, NORMAL RBC,HGB, AND HCT IS 5% LESS SOURCE FOR DATA: Viptable 1800 OPERATION MANUAL( AUTOMATED BLOOD COUNTS ANDDIFF.) APPENDIX B-3 CHRONIC KIDNEY DISEASE STAGING PER NKF: MALE GFR INTERPRETATION: 20-49 YRS: [...] DESIRABLE: <130 MG/DL <110 MG/DL BORDERLINE-HIGH RISK: 130- 159 MG/DL 110-129 MG/DL HIGH RISK: >160 MG/DL >130 MG/DL *CHILDREN AND ADOLESCENTS REPRESENTS INDIVIDUALA AGED 2-19 YEARS EXCLUSIVE. WBC 6.9 10E3/uL 4.1-10.9 [facility] ([facility] NORMAL RANGES Age WBC RBC HGB HCT MCV PLT Adult M 4.1-10.9 4.20-6.30 12.0-18.0 37.0-51.0 80-97 140-440 Adult F 4.1-10.9 4.04-5.48 12.0-18.0 37.0-51.0 80-97 140-440 0 -1 Yr 5.0-20.0 3.9-5.9 15-18 MV: 44 MV: 91 MV: 277 2-9 Yr. 6.0-17.0 3.8-5.4 11-13 MV: 37 MV: 78 MV: 300 10 Yrs. 5.0-13.0 3.8-5.4 12-15 MV: 39 MV: 80 MV: 250 NOTE: * FOR ADULT BLACK MALES AND FEMALES, NORMAL WBC IS 2.9-7.7 K/ML * FOR ADULT BLACK MALES AND FEMALES, NORMAL RBC,HGB, AND HCT IS 5% LESS SOURCE FOR DATA: Viptable 1800 OPERATION MANUAL( AUTOMATED BLOOD COUNTS ANDDIFF.) APPENDIX B-3 CHRONIC KIDNEY DISEASE STAGING PER NKF: MALE GFR INTERPRETATION: 20-49 YRS: [...] DESIRABLE: <130 MG/DL <110 MG/DL BORDERLINE-HIGH RISK: 130- 159 MG/DL 110-129 MG/DL HIGH RISK: >160 MG/DL >130 MG/DL *CHILDREN AND ADOLESCENTS REPRESENTS INDIVIDUALA AGED 2-19 YEARS EXCLUSIVE. RBC 4.42 10E6/uL 4.20-6.30 [facility] NORMAL RANGES Age WBC RBC HGB HCT MCV PLT Adult M 4.1-10.9 4.20-6.30 12.0-18.0 37.0-51.0 80-97 140-440 Adult F 4.1-10.9 4.04-5.48 12.0-18.0 37.0-51.0 80-97 140-440 0 -1 Yr 5.0-20.0 3.9-5.9 15-18 MV: 44 MV: 91 MV: 277 2-9 Yr. 6.0-17.0 3.8-5.4 11-13 MV: 37 MV: 78 MV: 300 10 Yrs. 5.0-13.0 3.8-5.4 12-15 MV: 39 MV: 80 MV: 250 NOTE: * FOR ADULT BLACK MALES AND FEMALES, NORMAL WBC IS 2.9-7.7 K/ML * FOR ADULT BLACK MALES AND FEMALES, NORMAL RBC,HGB, AND HCT IS 5% LESS SOURCE FOR DATA: Viptable 1800 OPERATION MANUAL( AUTOMATED BLOOD COUNTS ANDDIFF.) APPENDIX B-3 CHRONIC KIDNEY DISEASE STAGING PER NKF: MALE GFR INTERPRETATION: 20-49 YRS: [...] DESIRABLE: <130 MG/DL <110 MG/DL BORDERLINE-HIGH RISK: 130- 159 MG/DL 110-129 MG/DL HIGH RISK: >160 MG/DL >130 MG/DL *CHILDREN AND ADOLESCENTS REPRESENTS INDIVIDUALA AGED 2-19 YEARS EXCLUSIVE. MCV 92.8 fL 80.0-97.0 [facility] ([facility] NORMAL RANGES Age WBC RBC HGB HCT MCV PLT Adult M 4.1-10.9 4.20-6.30 12.0-18.0 37.0-51.0 80-97 140-440 Adult F 4.1-10.9 4.04-5.48 12.0-18.0 37.0-51.0 80-97 140-440 0 -1 Yr 5.0-20.0 3.9-5.9 15-18 MV: 44 MV: 91 MV: 277 2-9 Yr. 6.0-17.0 3.8-5.4 11-13 MV: 37 MV: 78 MV: 300 10 Yrs. 5.0-13.0 3.8-5.4 12-15 MV: 39 MV: 80 MV: 250 NOTE: * FOR ADULT BLACK MALES AND FEMALES, NORMAL WBC IS 2.9-7.7 K/ML * FOR ADULT BLACK MALES AND FEMALES, NORMAL RBC,HGB, AND HCT IS 5% LESS SOURCE FOR DATA: Viptable 1800 OPERATION MANUAL( AUTOMATED BLOOD COUNTS ANDDIFF.) APPENDIX B-3 CHRONIC KIDNEY DISEASE STAGING PER NKF: MALE GFR INTERPRETATION: 20-49 YRS: [...] DESIRABLE: <130 MG/DL <110 MG/DL BORDERLINE-HIGH RISK: 130- 159 MG/DL 110-129 MG/DL HIGH RISK: >160 MG/DL >130 MG/DL *CHILDREN AND ADOLESCENTS REPRESENTS INDIVIDUALA AGED 2-19 YEARS EXCLUSIVE. HCT 41.0 % 37.0-51.0 [facility] ([facility] NORMAL RANGES Age WBC RBC HGB HCT MCV PLT Adult M 4.1-10.9 4.20-6.30 12.0-18.0 37.0-51.0 80-97 140-440 Adult F 4.1-10.9 4.04-5.48 12.0-18.0 37.0-51.0 80-97 140-440 0 -1 Yr 5.0-20.0 3.9-5.9 15-18 MV: 44 MV: 91 MV: 277 2-9 Yr. 6.0-17.0 3.8-5.4 11-13 MV: 37 MV: 78 MV: 300 10 Yrs. 5.0-13.0 3.8-5.4 12-15 MV: 39 MV: 80 MV: 250 NOTE: * FOR ADULT BLACK MALES AND FEMALES, NORMAL WBC IS 2.9-7.7 K/ML * FOR ADULT BLACK MALES AND FEMALES, NORMAL RBC,HGB, AND HCT IS 5% LESS SOURCE FOR DATA: [employer] 1800 OPERATION MANUAL( AUTOMATED BLOOD COUNTS ANDDIFF.) APPENDIX B-3 CHRONIC KIDNEY DISEASE STAGING PER NKF: MALE GFR INTERPRETATION: 20-49 YRS: [...] DESIRABLE: <130 MG/DL <110 MG/DL BORDERLINE-HIGH RISK: 130- 159 MG/DL 110-129 MG/DL HIGH RISK: >160 MG/DL >130 MG/DL *CHILDREN AND ADOLESCENTS REPRESENTS INDIVIDUALA AGED 2-19 YEARS EXCLUSIVE. MCH 30.3 pg 26.0-32.0 [facility] ([facility] NORMAL RANGES Age WBC RBC HGB HCT MCV PLT Adult M 4.1-10.9 4.20-6.30 12.0-18.0 37.0-51.0 80-97 140-440 Adult F 4.1-10.9 4.04-5.48 12.0-18.0 37.0-51.0 80-97 140-440 0 -1 Yr 5.0-20.0 3.9-5.9 15-18 MV: 44 MV: 91 MV: 277 2-9 Yr. 6.0-17.0 3.8-5.4 11-13 MV: 37 MV: 78 MV: 300 10 Yrs. 5.0-13.0 3.8-5.4 12-15 MV: 39 MV: 80 MV: 250 NOTE: * FOR ADULT BLACK MALES AND FEMALES, NORMAL WBC IS 2.9-7.7 K/ML * FOR ADULT BLACK MALES AND FEMALES, NORMAL RBC,HGB, AND HCT IS 5% LESS SOURCE FOR DATA: [employer] 1800 OPERATION MANUAL( AUTOMATED BLOOD COUNTS ANDDIFF.) APPENDIX B-3 CHRONIC KIDNEY DISEASE STAGING PER NKF: MALE GFR INTERPRETATION: 20-49 YRS: [...] DESIRABLE: <130 MG/DL <110 MG/DL BORDERLINE-HIGH RISK: 130- 159 MG/DL 110-129 MG/DL HIGH RISK: >160 MG/DL >130 MG/DL *CHILDREN AND ADOLESCENTS REPRESENTS INDIVIDUALA AGED 2-19 YEARS EXCLUSIVE. PLT 317 10E3/uL 140-440 [facility] ([facility] NORMAL RANGES Age WBC RBC HGB HCT MCV PLT Adult M 4.1-10.9 4.20-6.30 12.0-18.0 37.0-51.0 80-97 140-440 Adult F 4.1-10.9 4.04-5.48 12.0-18.0 37.0-51.0 80-97 140-440 0 -1 Yr 5.0-20.0 3.9-5.9 15-18 MV: 44 MV: 91 MV: 277 2-9 Yr. 6.0-17.0 3.8-5.4 11-13 MV: 37 MV: 78 MV: 300 10 Yrs. 5.0-13.0 3.8-5.4 12-15 MV: 39 MV: 80 MV: 250 NOTE: * FOR ADULT BLACK MALES AND FEMALES, NORMAL WBC IS 2.9-7.7 K/ML * FOR ADULT BLACK MALES AND FEMALES, NORMAL RBC,HGB, AND HCT IS 5% LESS SOURCE FOR DATA: [employer] 1800 OPERATION MANUAL( AUTOMATED BLOOD COUNTS ANDDIFF.) APPENDIX B-3 CHRONIC KIDNEY DISEASE STAGING PER NKF: MALE GFR INTERPRETATION: 20-49 YRS: [...] DESIRABLE: <130 MG/DL <110 MG/DL BORDERLINE-HIGH RISK: 130- 159 MG/DL 110-129 MG/DL HIGH RISK: >160 MG/DL >130 MG/DL *CHILDREN AND ADOLESCENTS REPRESENTS INDIVIDUALA AGED 2-19 YEARS EXCLUSIVE. MCHC 32.7 g/dL 31.0-36.0 [facility] ([facility] NORMAL RANGES Age WBC RBC HGB HCT MCV PLT Adult M 4.1-10.9 4.20-6.30 12.0-18.0 37.0-51.0 80-97 140-440 Adult F 4.1-10.9 4.04-5.48 12.0-18.0 37.0-51.0 80-97 140-440 0 -1 Yr 5.0-20.0 3.9-5.9 15-18 MV: 44 MV: 91 MV: 277 2-9 Yr. 6.0-17.0 3.8-5.4 11-13 MV: 37 MV: 78 MV: 300 10 Yrs. 5.0-13.0 3.8-5.4 12-15 MV: 39 MV: 80 MV: 250 NOTE: * FOR ADULT BLACK MALES AND FEMALES, NORMAL WBC IS 2.9-7.7 K/ML * FOR ADULT BLACK MALES AND FEMALES, NORMAL RBC,HGB, AND HCT IS 5% LESS SOURCE FOR DATA: [employer] 1800 OPERATION MANUAL( AUTOMATED BLOOD COUNTS ANDDIFF.) APPENDIX B-3 CHRONIC KIDNEY DISEASE STAGING PER NKF: MALE GFR INTERPRETATION: 20-49 YRS: [...] DESIRABLE: <130 MG/DL <110 MG/DL BORDERLINE-HIGH RISK: 130- 159 MG/DL 110-129 MG/DL HIGH RISK: >160 MG/DL >130 MG/DL *CHILDREN AND ADOLESCENTS REPRESENTS INDIVIDUALA AGED 2-19 YEARS EXCLUSIVE. RDW-CV 14.0 % 11.5-14.5 [facility] NORMAL RANGES Age WBC RBC HGB HCT MCV PLT Adult M 4.1-10.9 4.20-6.30 12.0-18.0 37.0-51.0 80-97 140-440 Adult F 4.1-10.9 4.04-5.48 12.0-18.0 37.0-51.0 80-97 140-440 0 -1 Yr 5.0-20.0 3.9-5.9 15-18 MV: 44 MV: 91 MV: 277 2-9 Yr. 6.0-17.0 3.8-5.4 11-13 MV: 37 MV: 78 MV: 300 10 Yrs. 5.0-13.0 3.8-5.4 12-15 MV: 39 MV: 80 MV: 250 NOTE: * FOR ADULT BLACK MALES AND FEMALES, NORMAL WBC IS 2.9-7.7 K/ML * FOR ADULT BLACK MALES AND FEMALES, NORMAL RBC,HGB, AND HCT IS 5% LESS SOURCE FOR DATA: [employer] 1800 OPERATION MANUAL( AUTOMATED BLOOD COUNTS ANDDIFF.) APPENDIX B-3 CHRONIC KIDNEY DISEASE STAGING PER NKF: MALE GFR INTERPRETATION: 20-49 YRS: [...] DESIRABLE: <130 MG/DL <110 MG/DL BORDERLINE-HIGH RISK: 130- 159 MG/DL 110-129 MG/DL HIGH RISK: >160 MG/DL >130 MG/DL *CHILDREN AND ADOLESCENTS REPRESENTS INDIVIDUALA AGED 2-19 YEARS EXCLUSIVE. Lym% 24.7 % 10.0-58.5 [facility] ([facility] NORMAL RANGES Age WBC RBC HGB HCT MCV PLT Adult M 4.1-10.9 4.20-6.30 12.0-18.0 37.0-51.0 80-97 140-440 Adult F 4.1-10.9 4.04-5.48 12.0-18.0 37.0-51.0 80-97 140-440 0 -1 Yr 5.0-20.0 3.9-5.9 15-18 MV: 44 MV: 91 MV: 277 2-9 Yr. 6.0-17.0 3.8-5.4 11-13 MV: 37 MV: 78 MV: 300 10 Yrs. 5.0-13.0 3.8-5.4 12-15 MV: 39 MV: 80 MV: 250 NOTE: * FOR ADULT BLACK MALES AND FEMALES, NORMAL WBC IS 2.9-7.7 K/ML * FOR ADULT BLACK MALES AND FEMALES, NORMAL RBC,HGB, AND HCT IS 5% LESS SOURCE FOR DATA: [employer] 1800 OPERATION MANUAL( AUTOMATED BLOOD COUNTS ANDDIFF.) APPENDIX B-3 CHRONIC KIDNEY DISEASE STAGING PER NKF: MALE GFR INTERPRETATION: 20-49 YRS: [...] DESIRABLE: <130 MG/DL <110 MG/DL BORDERLINE-HIGH RISK: 130- 159 MG/DL 110-129 MG/DL HIGH RISK: >160 MG/DL >130 MG/DL *CHILDREN AND ADOLESCENTS REPRESENTS INDIVIDUALA AGED 2-19 YEARS EXCLUSIVE. Neut% 62.2 % 37.0-92.0 [facility] ([facility] NORMAL RANGES Age WBC RBC HGB HCT MCV PLT Adult M 4.1-10.9 4.20-6.30 12.0-18.0 37.0-51.0 80-97 140-440 Adult F 4.1-10.9 4.04-5.48 12.0-18.0 37.0-51.0 80-97 140-440 0 -1 Yr 5.0-20.0 3.9-5.9 15-18 MV: 44 MV: 91 MV: 277 2-9 Yr. 6.0-17.0 3.8-5.4 11-13 MV: 37 MV: 78 MV: 300 10 Yrs. 5.0-13.0 3.8-5.4 12-15 MV: 39 MV: 80 MV: 250 NOTE: * FOR ADULT BLACK MALES AND FEMALES, NORMAL WBC IS 2.9-7.7 K/ML * FOR ADULT BLACK MALES AND FEMALES, NORMAL RBC,HGB, AND HCT IS 5% LESS SOURCE FOR DATA: [employer] 1800 OPERATION MANUAL( AUTOMATED BLOOD COUNTS ANDDIFF.) APPENDIX B-3 CHRONIC KIDNEY DISEASE STAGING PER NKF: MALE GFR INTERPRETATION: 20-49 YRS: [...] DESIRABLE: <130 MG/DL <110 MG/DL BORDERLINE-HIGH RISK: 130- 159 MG/DL 110-129 MG/DL HIGH RISK: >160 MG/DL >130 MG/DL *CHILDREN AND ADOLESCENTS REPRESENTS INDIVIDUALA AGED 2-19 YEARS EXCLUSIVE. MXD% 13.1 % 0.1-24.0 [facility] NORMAL RANGES Age WBC RBC HGB HCT MCV PLT Adult M 4.1-10.9 4.20-6.30 12.0-18.0 37.0-51.0 80-97 140-440 Adult F 4.1-10.9 4.04-5.48 12.0-18.0 37.0-51.0 80-97 140-440 0 -1 Yr 5.0-20.0 3.9-5.9 15-18 MV: 44 MV: 91 MV: 277 2-9 Yr. 6.0-17.0 3.8-5.4 11-13 MV: 37 MV: 78 MV: 300 10 Yrs. 5.0-13.0 3.8-5.4 12-15 MV: 39 MV: 80 MV: 250 NOTE: * FOR ADULT BLACK MALES AND FEMALES, NORMAL WBC IS 2.9-7.7 K/ML * FOR ADULT BLACK MALES AND FEMALES, NORMAL RBC,HGB, AND HCT IS 5% LESS SOURCE FOR DATA: V[employer]able 1800 OPERATION MANUAL( AUTOMATED BLOOD COUNTS ANDDIFF.) APPENDIX B-3 CHRONIC KIDNEY DISEASE STAGING PER NKF: MALE GFR INTERPRETATION: 20-49 YRS: [...] DESIRABLE: <130 MG/DL <110 MG/DL BORDERLINE-HIGH RISK: 130- 159 MG/DL 110-129 MG/DL HIGH RISK: >160 MG/DL >130 MG/DL *CHILDREN AND ADOLESCENTS REPRESENTS INDIVIDUALA AGED 2-19 YEARS EXCLUSIVE. Neut# 4.3 % 2.0-7.8 [facility] ([facility] NORMAL RANGES Age WBC RBC HGB HCT MCV PLT Adult M 4.1-10.9 4.20-6.30 12.0-18.0 37.0-51.0 80-97 140-440 Adult F 4.1-10.9 4.04-5.48 12.0-18.0 37.0-51.0 80-97 140-440 0 -1 Yr 5.0-20.0 3.9-5.9 15-18 MV: 44 MV: 91 MV: 277 2-9 Yr. 6.0-17.0 3.8-5.4 11-13 MV: 37 MV: 78 MV: 300 10 Yrs. 5.0-13.0 3.8-5.4 12-15 MV: 39 MV: 80 MV: 250 NOTE: * FOR ADULT BLACK MALES AND FEMALES, NORMAL WBC IS 2.9-7.7 K/ML * FOR ADULT BLACK MALES AND FEMALES, NORMAL RBC,HGB, AND HCT IS 5% LESS SOURCE FOR DATA: [employer] 1800 OPERATION MANUAL( AUTOMATED BLOOD COUNTS ANDDIFF.) APPENDIX B-3 CHRONIC KIDNEY DISEASE STAGING PER NKF: MALE GFR INTERPRETATION: 20-49 YRS: [...] DESIRABLE: <130 MG/DL <110 MG/DL BORDERLINE-HIGH RISK: 130- 159 MG/DL 110-129 MG/DL HIGH RISK: >160 MG/DL >130 MG/DL *CHILDREN AND ADOLESCENTS REPRESENTS INDIVIDUALA AGED 2-19 YEARS EXCLUSIVE. Lym# 1.7 10E3/uL 0.6-4.1 [facility] NORMAL RANGES Age WBC RBC HGB HCT MCV PLT Adult M 4.1-10.9 4.20-6.30 12.0-18.0 37.0-51.0 80-97 140-440 Adult F 4.1-10.9 4.04-5.48 12.0-18.0 37.0-51.0 80-97 140-440 0 -1 Yr 5.0-20.0 3.9-5.9 15-18 MV: 44 MV: 91 MV: 277 2-9 Yr. 6.0-17.0 3.8-5.4 11-13 MV: 37 MV: 78 MV: 300 10 Yrs. 5.0-13.0 3.8-5.4 12-15 MV: 39 MV: 80 MV: 250 NOTE: * FOR ADULT BLACK MALES AND FEMALES, NORMAL WBC IS 2.9-7.7 K/ML * FOR ADULT BLACK MALES AND FEMALES, NORMAL RBC,HGB, AND HCT IS 5% LESS SOURCE FOR DATA: [employer] 1800 OPERATION MANUAL( AUTOMATED BLOOD COUNTS ANDDIFF.) APPENDIX B-3 CHRONIC KIDNEY DISEASE STAGING PER NKF: MALE GFR INTERPRETATION: 20-49 YRS: [...] DESIRABLE: <130 MG/DL <110 MG/DL BORDERLINE-HIGH RISK: 130- 159 MG/DL 110-129 MG/DL HIGH RISK: >160 MG/DL >130 MG/DL *CHILDREN AND ADOLESCENTS REPRESENTS INDIVIDUALA AGED 2-19 YEARS EXCLUSIVE. MXD# 0.9 10E3/uL 0.0-1.8 [facility] ([facility] NORMAL RANGES Age WBC RBC HGB HCT MCV PLT Adult M 4.1-10.9 4.20-6.30 12.0-18.0 37.0-51.0 80-97 140-440 Adult F 4.1-10.9 4.04-5.48 12.0-18.0 37.0-51.0 80-97 140-440 0 -1 Yr 5.0-20.0 3.9-5.9 15-18 MV: 44 MV: 91 MV: 277 2-9 Yr. 6.0-17.0 3.8-5.4 11-13 MV: 37 MV: 78 MV: 300 10 Yrs. 5.0-13.0 3.8-5.4 12-15 MV: 39 MV: 80 MV: 250 NOTE: * FOR ADULT BLACK MALES AND FEMALES, NORMAL WBC IS 2.9-7.7 K/ML * FOR ADULT BLACK MALES AND FEMALES, NORMAL RBC,HGB, AND HCT IS 5% LESS SOURCE FOR DATA: [employer]able 1800 OPERATION MANUAL( AUTOMATED BLOOD COUNTS ANDDIFF.) APPENDIX B-3 CHRONIC KIDNEY DISEASE STAGING PER NKF: MALE GFR INTERPRETATION: 20-49 YRS: [...] DESIRABLE: <130 MG/DL <110 MG/DL BORDERLINE-HIGH RISK: 130- 159 MG/DL 110-129 MG/DL HIGH RISK: >160 MG/DL >130 MG/DL *CHILDREN AND ADOLESCENTS REPRESENTS INDIVIDUALA AGED 2-19 YEARS EXCLUSIVE. MPV 9.1 fL 9.0-13.0 [facility] ([facility] NORMAL RANGES Age WBC RBC HGB HCT MCV PLT Adult M 4.1-10.9 4.20-6.30 12.0-18.0 37.0-51.0 80-97 140-440 Adult F 4.1-10.9 4.04-5.48 12.0-18.0 37.0-51.0 80-97 140-440 0 -1 Yr 5.0-20.0 3.9-5.9 15-18 MV: 44 MV: 91 MV: 277 2-9 Yr. 6.0-17.0 3.8-5.4 11-13 MV: 37 MV: 78 MV: 300 10 Yrs. 5.0-13.0 3.8-5.4 12-15 MV: 39 MV: 80 MV: 250 NOTE: * FOR ADULT BLACK MALES AND FEMALES, NORMAL WBC IS 2.9-7.7 K/ML * FOR ADULT BLACK MALES AND FEMALES, NORMAL RBC,HGB, AND HCT IS 5% LESS SOURCE FOR DATA: [employer]able 1800 OPERATION MANUAL( AUTOMATED BLOOD COUNTS ANDDIFF.) APPENDIX B-3 CHRONIC KIDNEY DISEASE STAGING PER NKF: MALE GFR INTERPRETATION: 20-49 YRS: [...] DESIRABLE: <130 MG/DL <110 MG/DL BORDERLINE-HIGH RISK: 130- 159 MG/DL 110-129 MG/DL HIGH RISK: >160 MG/DL >130 MG/DL *CHILDREN AND ADOLESCENTS REPRESENTS INDIVIDUALA AGED 2-19 YEARS EXCLUSIVE. ID Date Data Source [id number] 12/03/2019 02:02:00 PM EDT [facility] ([facility]) Name Value Range Interpretation Code Description Data Neyda rce(s) Supporting Document(s) PDFReport Laboratory test result [facility] ([facility]) FVC-Pre 2.70 L [facility] ([facility]) FVC-Pred 3.04 L [facility] ([facility]) FVC-%Pred-Pre 88 L [facility] ([facility]) FVC-LLN 2.35 L [facility] ([facility]) Fev1-Pred 2.24 L [facility] ([facility]) Fev1-Pre 1.82 L [facility] ([facility]) Fev1-%Pred-Pre 81 L [facility] ([facility]) Fev1-LLN 1.65 L [facility] ([facility]) Fev6-Pre 2.69 L [facility] ([facility]) Fev6-Pred 2.84 L [facility] ([facility]) Fev6-%Pred-Pre 94 L [facility] ([facility]) Oro9orr-Wymp 74 % [facility] ([facility]) Fev6-LLN 2.16 L [facility] ([facility], ) Llf7sob-Xsc 68 % [facility] ([facility]) Kgz2fqs-VMA 65 % [facility] ([facility]) Ict9sma-%Pred-Pre 90 % [facility] ([facility]) Mvw2efk-Hqi 100 % [facility] ([facility]) Mst4owq-%Pred-Pre 107 % [facility] ([facility]) Tjg5zsb-Wqwm 93 % [facility] ([facility]) FEFMax-Pre 3.78 L/E/sec [facility] ([facility]) FEFMax-Pred 6.65 L/E/sec [facility] ([facility]) FEFMax-%Pred-Pre 56 L/E/sec [facility] ([facility]) [id number] 1.16 L/E/sec [facility] ([facility]) FEFMax-LLN 4.91 L/E/sec [facility] ([facility]) Ggs0115-Kdsl 1.80 L/E/sec [facility] ([facility]) [id number]-RRD 0.60 L/E/sec [facility] ([facility]) ExpTime-Pre 6.63 sec [facility] ([facility]) Yos4592-%Pred-Pre 64 L/E/sec [facility] ([facility]) Vwf8ars6-%Pred-Pre 86 % [facility] ([facility]) Lqi7dsd3-Vzc 68 % [facility] ([facility]) Fxc3whb1-Miwx 78 % [facility] ([facility]) Zgh6fkb9-FPT 69 % [facility] ([facility]) ID Date Data Source [id number] 07/14/2019 09:14:00 AM EST [facility] ([facility] Name Value Range Interpretation Code Description Data Neyda rce(s) Supporting Document(s) Hemoglobin A1c/Hemoglobin.total in Blood 7.1 % 4.50-6.20 Above high normal [facility] ([facility] ID Date Data Source [id number] 07/14/2019 09:14:00 AM EST [facility] ([facility] Name Value Range Interpretation Code Description Data Neyda rce(s) Supporting Document(s) Thyrotropin [Units/volume] in Serum or Plasma 2.075 ulU/mL 0.60-4.8 [facility] ([facility] ID Date Data Source [id number] 07/14/2019 09:14:00 AM EST [facility] ([facility] Name Value Range Interpretation Code Description Data Neyda rce(s) Supporting Document(s) Chol 131 mg/dL 0-200 [facility] ([facility] CLASSIFICATION CHOLESTEROL FO R ADULTS CHILDREN/ADOLESCENTS* DESIRABLE: <200 MG/DL <170 MG/DL BORDER-LINE HIGH RISK: 200-239 MG/DL 170-199 MG/DL HIGH RISK: >240 MG/DL >200 MG/DL CLASS. FOR PRIMARY LDL CHOL PREVENTION: LDL CHOL-CHILD/ADOLESCENTS* DESIRABLE: <130 MG/DL <110 MG/DL BORDERLINE-HIGH RISK: 130-159 MG/DL 110-129 MG/DL HIGH RISK: >160 MG/DL >130 MG/DL *CHILDREN AND ADOLESCENTS REPRESENTS INDIVIDUALA AGED 2-19 YEARS EXCLUSIVE. CHRONIC KIDNEY DISEASE STAGING PER NKF: MALE GFR INTERPRETATION: 20-49 YRS: [...] mL/min Normal 80 and above >32 mL/min Normal LDL_C 37 Calc 75-129 Below low normal [facility] ( [facility] CLASSIFICATION CHOLESTEROL FO R ADULTS CHILDREN/ADOLESCENTS* DESIRABLE: <200 MG/DL <170 MG/DL BORDER-LINE HIGH RISK: 200-239 MG/DL 170-199 MG/DL HIGH RISK: >240 MG/DL >200 MG/DL CLASS. FOR PRIMARY LDL CHOL PREVENTION: LDL CHOL-CHILD/ADOLESCENTS* DESIRABLE: <130 MG/DL <110 MG/DL BORDERLINE-HIGH RISK: 130-159 MG/DL 110-129 MG/DL HIGH RISK: >160 MG/DL >130 MG/DL *CHILDREN AND ADOLESCENTS REPRESENTS INDIVIDUALA AGED 2-19 YEARS EXCLUSIVE. CHRONIC KIDNEY DISEASE STAGING PER NKF: MALE GFR INTERPRETATION: 20-49 YRS: [...] mL/min Normal 80 and above >32 mL/min Normal Prostate specific Ag [Mass/volume] in Serum or Plasma 64 mg/dL 35-55 Above high normal [facility] ([facility] CLASSIFICATION CHOLESTEROL FO R ADULTS CHILDREN/ADOLESCENTS* DESIRABLE: <200 MG/DL <170 MG/DL BORDER-LINE HIGH RISK: 200-239 MG/DL 170-199 MG/DL HIGH RISK: >240 MG/DL >200 MG/DL CLASS. FOR PRIMARY LDL CHOL PREVENTION: LDL CHOL-CHILD/ADOLESCENTS* DESIRABLE: <130 MG/DL <110 MG/DL BORDERLINE-HIGH RISK: 130-159 MG/DL 110-129 MG/DL HIGH RISK: >160 MG/DL >130 MG/DL *CHILDREN AND ADOLESCENTS REPRESENTS INDIVIDUALA AGED 2-19 YEARS EXCLUSIVE. CHRONIC KIDNEY DISEASE STAGING PER NKF: MALE GFR INTERPRETATION: 20-49 YRS: [...] mL/min Normal 80 and above >32 mL/min Normal Cho/HDL Ratio 2.1 CALC [facility] CLASSIFICATION CHOLESTEROL FO R ADULTS CHILDREN/ADOLESCENTS* DESIRABLE: <200 MG/DL <170 MG/DL BORDER-LINE HIGH RISK: 200-239 MG/DL 170-199 MG/DL HIGH RISK: >240 MG/DL >200 MG/DL CLASS. FOR PRIMARY LDL CHOL PREVENTION: LDL CHOL-CHILD/ADOLESCENTS* DESIRABLE: <130 MG/DL <110 MG/DL BORDERLINE-HIGH RISK: 130-159 MG/DL 110-129 MG/DL HIGH RISK: >160 MG/DL >130 MG/DL *CHILDREN AND ADOLESCENTS REPRESENTS INDIVIDUALA AGED 2-19 YEARS EXCLUSIVE. CHRONIC KIDNEY DISEASE STAGING PER NKF: MALE GFR INTERPRETATION: 20-49 YRS: [...] mL/min Normal 80 and above >32 mL/min Normal Trig 153 mg/dL 35-200 [facility] ([facility] CLASSIFICATION CHOLESTEROL FO R ADULTS CHILDREN/ADOLESCENTS* DESIRABLE: <200 MG/DL <170 MG/DL BORDER-LINE HIGH RISK: 200-239 MG/DL 170-199 MG/DL HIGH RISK: >240 MG/DL >200 MG/DL CLASS. FOR PRIMARY LDL CHOL PREVENTION: LDL CHOL-CHILD/ADOLESCENTS* DESIRABLE: <130 MG/DL <110 MG/DL BORDERLINE-HIGH RISK: 130-159 MG/DL 110-129 MG/DL HIGH RISK: >160 MG/DL >130 MG/DL *CHILDREN AND ADOLESCENTS REPRESENTS INDIVIDUALA AGED 2-19 YEARS EXCLUSIVE. CHRONIC KIDNEY DISEASE STAGING PER NKF: MALE GFR INTERPRETATION: 20-49 YRS: [...] mL/min Normal 80 and above >32 mL/min Normal ID Date Data Source [id number] 07/14/2019 09:14:00 AM EST [facility] ([facility] Name Value Range Interpretation Code Description Data Neyda rce(s) Supporting Document(s) Glu 154 mg/dL 70-110 Above high normal [facility] ([facility] CLASSIFICATION CHOLESTEROL FO R ADULTS CHILDREN/ADOLESCENTS* DESIRABLE: <200 MG/DL <170 MG/DL BORDER-LINE HIGH RISK: 200-239 MG/DL 170-199 MG/DL HIGH RISK: >240 MG/DL >200 MG/DL CLASS. FOR PRIMARY LDL CHOL PREVENTION: LDL CHOL-CHILD/ADOLESCENTS* DESIRABLE: <130 MG/DL <110 MG/DL BORDERLINE-HIGH RISK: 130-159 MG/DL 110-129 MG/DL HIGH RISK: >160 MG/DL >130 MG/DL *CHILDREN AND ADOLESCENTS REPRESENTS INDIVIDUALA AGED 2-19 YEARS EXCLUSIVE. CHRONIC KIDNEY DISEASE STAGING PER NKF: MALE GFR INTERPRETATION: 20-49 YRS: [...] mL/min Normal 80 and above >32 mL/min Normal Creat 1.1 mg/dL 0.7-1.2 [facility] ([facility] CLASSIFICATION CHOLESTEROL FO R ADULTS CHILDREN/ADOLESCENTS* DESIRABLE: <200 MG/DL <170 MG/DL BORDER-LINE HIGH RISK: 200-239 MG/DL 170-199 MG/DL HIGH RISK: >240 MG/DL >200 MG/DL CLASS. FOR PRIMARY LDL CHOL PREVENTION: LDL CHOL-CHILD/ADOLESCENTS* DESIRABLE: <130 MG/DL <110 MG/DL BORDERLINE-HIGH RISK: 130-159 MG/DL 110-129 MG/DL HIGH RISK: >160 MG/DL >130 MG/DL *CHILDREN AND ADOLESCENTS REPRESENTS INDIVIDUALA AGED 2-19 YEARS EXCLUSIVE. CHRONIC KIDNEY DISEASE STAGING PER NKF: MALE GFR INTERPRETATION: 20-49 YRS: [...] mL/min Normal 80 and above >32 mL/min Normal BUN/Creatinine Ratio 17.7 Calc [facility] ([facility] CLASSIFICATION CHOLESTEROL FO R ADULTS CHILDREN/ADOLESCENTS* DESIRABLE: <200 MG/DL <170 MG/DL BORDER-LINE HIGH RISK: 200-239 MG/DL 170-199 MG/DL HIGH RISK: >240 MG/DL >200 MG/DL CLASS. FOR PRIMARY LDL CHOL PREVENTION: LDL CHOL-CHILD/ADOLESCENTS* DESIRABLE: <130 MG/DL <110 MG/DL BORDERLINE-HIGH RISK: 130-159 MG/DL 110-129 MG/DL HIGH RISK: >160 MG/DL >130 MG/DL *CHILDREN AND ADOLESCENTS REPRESENTS INDIVIDUALA AGED 2-19 YEARS EXCLUSIVE. CHRONIC KIDNEY DISEASE STAGING PER NKF: MALE GFR INTERPRETATION: 20-49 YRS: [...] mL/min Normal 80 and above >32 mL/min Normal BUN 19 mg/dL 8-23 [facility] ([facility] CLASSIFICATION CHOLESTEROL FO R ADULTS CHILDREN/ADOLESCENTS* DESIRABLE: <200 MG/DL <170 MG/DL BORDER-LINE HIGH RISK: 200-239 MG/DL 170-199 MG/DL HIGH RISK: >240 MG/DL >200 MG/DL CLASS. FOR PRIMARY LDL CHOL PREVENTION: LDL CHOL-CHILD/ADOLESCENTS* DESIRABLE: <130 MG/DL <110 MG/DL BORDERLINE-HIGH RISK: 130-159 MG/DL 110-129 MG/DL HIGH RISK: >160 MG/DL >130 MG/DL *CHILDREN AND ADOLESCENTS REPRESENTS INDIVIDUALA AGED 2-19 YEARS EXCLUSIVE. CHRONIC KIDNEY DISEASE STAGING PER NKF: MALE GFR INTERPRETATION: 20-49 YRS: [...] mL/min Normal 80 and above >32 mL/min Normal CL 103.5 mmol/L 98.0-107.0 [facility] ([facility] CLASSIFICATION CHOLESTEROL FO R ADULTS CHILDREN/ADOLESCENTS* DESIRABLE: <200 MG/DL <170 MG/DL BORDER-LINE HIGH RISK: 200-239 MG/DL 170-199 MG/DL HIGH RISK: >240 MG/DL >200 MG/DL CLASS. FOR PRIMARY LDL CHOL PREVENTION: LDL CHOL-CHILD/ADOLESCENTS* DESIRABLE: <130 MG/DL <110 MG/DL BORDERLINE-HIGH RISK: 130-159 MG/DL 110-129 MG/DL HIGH RISK: >160 MG/DL >130 MG/DL *CHILDREN AND ADOLESCENTS REPRESENTS INDIVIDUALA AGED 2-19 YEARS EXCLUSIVE. CHRONIC KIDNEY DISEASE STAGING PER NKF: MALE GFR INTERPRETATION: 20-49 YRS: [...] mL/min Normal 80 and above >32 mL/min Normal K 4.7 mmol/L 3.5-5.1 [facility] ([facility] CLASSIFICATION CHOLESTEROL FO R ADULTS CHILDREN/ADOLESCENTS* DESIRABLE: <200 MG/DL <170 MG/DL BORDER-LINE HIGH RISK: 200-239 MG/DL 170-199 MG/DL HIGH RISK: >240 MG/DL >200 MG/DL CLASS. FOR PRIMARY LDL CHOL PREVENTION: LDL CHOL-CHILD/ADOLESCENTS* DESIRABLE: <130 MG/DL <110 MG/DL BORDERLINE-HIGH RISK: 130-159 MG/DL 110-129 MG/DL HIGH RISK: >160 MG/DL >130 MG/DL *CHILDREN AND ADOLESCENTS REPRESENTS INDIVIDUALA AGED 2-19 YEARS EXCLUSIVE. CHRONIC KIDNEY DISEASE STAGING PER NKF: MALE GFR INTERPRETATION: 20-49 YRS: [...] mL/min Normal 80 and above >32 mL/min Normal Na 140 mmol/L 136-145 [facility] ([facility] CLASSIFICATION CHOLESTEROL FO R ADULTS CHILDREN/ADOLESCENTS* DESIRABLE: <200 MG/DL <170 MG/DL BORDER-LINE HIGH RISK: 200-239 MG/DL 170-199 MG/DL HIGH RISK: >240 MG/DL >200 MG/DL CLASS. FOR PRIMARY LDL CHOL PREVENTION: LDL CHOL-CHILD/ADOLESCENTS* DESIRABLE: <130 MG/DL <110 MG/DL BORDERLINE-HIGH RISK: 130-159 MG/DL 110-129 MG/DL HIGH RISK: >160 MG/DL >130 MG/DL *CHILDREN AND ADOLESCENTS REPRESENTS INDIVIDUALA AGED 2-19 YEARS EXCLUSIVE. CHRONIC KIDNEY DISEASE STAGING PER NKF: MALE GFR INTERPRETATION: 20-49 YRS: [...] mL/min Normal 80 and above >32 mL/min Normal Co2 25.8 mmol/L 22.0-29.0 [facility] ([facility] CLASSIFICATION CHOLESTEROL FO R ADULTS CHILDREN/ADOLESCENTS* DESIRABLE: <200 MG/DL <170 MG/DL BORDER-LINE HIGH RISK: 200-239 MG/DL 170-199 MG/DL HIGH RISK: >240 MG/DL >200 MG/DL CLASS. FOR PRIMARY LDL CHOL PREVENTION: LDL CHOL-CHILD/ADOLESCENTS* DESIRABLE: <130 MG/DL <110 MG/DL BORDERLINE-HIGH RISK: 130-159 MG/DL 110-129 MG/DL HIGH RISK: >160 MG/DL >130 MG/DL *CHILDREN AND ADOLESCENTS REPRESENTS INDIVIDUALA AGED 2-19 YEARS EXCLUSIVE. CHRONIC KIDNEY DISEASE STAGING PER NKF: MALE GFR INTERPRETATION: 20-49 YRS: [...] mL/min Normal 80 and above >32 mL/min Normal Alb 4.0 g/dL 3.5-5.2 [facility] ([facility] CLASSIFICATION CHOLESTEROL FO R ADULTS CHILDREN/ADOLESCENTS* DESIRABLE: <200 MG/DL <170 MG/DL BORDER-LINE HIGH RISK: 200-239 MG/DL 170-199 MG/DL HIGH RISK: >240 MG/DL >200 MG/DL CLASS. FOR PRIMARY LDL CHOL PREVENTION: LDL CHOL-CHILD/ADOLESCENTS* DESIRABLE: <130 MG/DL <110 MG/DL BORDERLINE-HIGH RISK: 130-159 MG/DL 110-129 MG/DL HIGH RISK: >160 MG/DL >130 MG/DL *CHILDREN AND ADOLESCENTS REPRESENTS INDIVIDUALA AGED 2-19 YEARS EXCLUSIVE. CHRONIC KIDNEY DISEASE STAGING PER NKF: MALE GFR INTERPRETATION: 20-49 YRS: [...] mL/min Normal 80 and above >32 mL/min Normal TP 6.7 g/dL 6.6-8.7 [facility] ([facility] CLASSIFICATION CHOLESTEROL FO R ADULTS CHILDREN/ADOLESCENTS* DESIRABLE: <200 MG/DL <170 MG/DL BORDER-LINE HIGH RISK: 200-239 MG/DL 170-199 MG/DL HIGH RISK: >240 MG/DL >200 MG/DL CLASS. FOR PRIMARY LDL CHOL PREVENTION: LDL CHOL-CHILD/ADOLESCENTS* DESIRABLE: <130 MG/DL <110 MG/DL BORDERLINE-HIGH RISK: 130-159 MG/DL 110-129 MG/DL HIGH RISK: >160 MG/DL >130 MG/DL *CHILDREN AND ADOLESCENTS REPRESENTS INDIVIDUALA AGED 2-19 YEARS EXCLUSIVE. CHRONIC KIDNEY DISEASE STAGING PER NKF: MALE GFR INTERPRETATION: 20-49 YRS: [...] mL/min Normal 80 and above >32 mL/min Normal CA 8.8 mg/dL 8.6-10.2 [facility] ([facility] CLASSIFICATION CHOLESTEROL FO R ADULTS CHILDREN/ADOLESCENTS* DESIRABLE: <200 MG/DL <170 MG/DL BORDER-LINE HIGH RISK: 200-239 MG/DL 170-199 MG/DL HIGH RISK: >240 MG/DL >200 MG/DL CLASS. FOR PRIMARY LDL CHOL PREVENTION: LDL CHOL-CHILD/ADOLESCENTS* DESIRABLE: <130 MG/DL <110 MG/DL BORDERLINE-HIGH RISK: 130-159 MG/DL 110-129 MG/DL HIGH RISK: >160 MG/DL >130 MG/DL *CHILDREN AND ADOLESCENTS REPRESENTS INDIVIDUALA AGED 2-19 YEARS EXCLUSIVE. CHRONIC KIDNEY DISEASE STAGING PER NKF: MALE GFR INTERPRETATION: 20-49 YRS: [...] mL/min Normal 80 and above >32 mL/min Normal Globulin 2.6 Calc [facility] ([facility] CLASSIFICATION CHOLESTEROL FO R ADULTS CHILDREN/ADOLESCENTS* DESIRABLE: <200 MG/DL <170 MG/DL BORDER-LINE HIGH RISK: 200-239 MG/DL 170-199 MG/DL HIGH RISK: >240 MG/DL >200 MG/DL CLASS. FOR PRIMARY LDL CHOL PREVENTION: LDL CHOL-CHILD/ADOLESCENTS* DESIRABLE: <130 MG/DL <110 MG/DL BORDERLINE-HIGH RISK: 130-159 MG/DL 110-129 MG/DL HIGH RISK: >160 MG/DL >130 MG/DL *CHILDREN AND ADOLESCENTS REPRESENTS INDIVIDUALA AGED 2-19 YEARS EXCLUSIVE. CHRONIC KIDNEY DISEASE STAGING PER NKF: MALE GFR INTERPRETATION: 20-49 YRS: [...] mL/min Normal 80 and above >32 mL/min Normal Alp 71.2 U/L 40-129 [facility] ([facility] CLASSIFICATION CHOLESTEROL FO R ADULTS CHILDREN/ADOLESCENTS* DESIRABLE: <200 MG/DL <170 MG/DL BORDER-LINE HIGH RISK: 200-239 MG/DL 170-199 MG/DL HIGH RISK: >240 MG/DL >200 MG/DL CLASS. FOR PRIMARY LDL CHOL PREVENTION: LDL CHOL-CHILD/ADOLESCENTS* DESIRABLE: <130 MG/DL <110 MG/DL BORDERLINE-HIGH RISK: 130-159 MG/DL 110-129 MG/DL HIGH RISK: >160 MG/DL >130 MG/DL *CHILDREN AND ADOLESCENTS REPRESENTS INDIVIDUALA AGED 2-19 YEARS EXCLUSIVE. CHRONIC KIDNEY DISEASE STAGING PER NKF: MALE GFR INTERPRETATION: 20-49 YRS: [...] mL/min Normal 80 and above >32 mL/min Normal A/G Ratio 1.5 Calc [facility] ([facility] CLASSIFICATION CHOLESTEROL FO R ADULTS CHILDREN/ADOLESCENTS* DESIRABLE: <200 MG/DL <170 MG/DL BORDER-LINE HIGH RISK: 200-239 MG/DL 170-199 MG/DL HIGH RISK: >240 MG/DL >200 MG/DL CLASS. FOR PRIMARY LDL CHOL PREVENTION: LDL CHOL-CHILD/ADOLESCENTS* DESIRABLE: <130 MG/DL <110 MG/DL BORDERLINE-HIGH RISK: 130-159 MG/DL 110-129 MG/DL HIGH RISK: >160 MG/DL >130 MG/DL *CHILDREN AND ADOLESCENTS REPRESENTS INDIVIDUALA AGED 2-19 YEARS EXCLUSIVE. CHRONIC KIDNEY DISEASE STAGING PER NKF: MALE GFR INTERPRETATION: 20-49 YRS: [...] mL/min Normal 80 and above >32 mL/min Normal Alt (SGPT) 16 U/L 0-41 [facility] ([facility] CLASSIFICATION CHOLESTEROL FO R ADULTS CHILDREN/ADOLESCENTS* DESIRABLE: <200 MG/DL <170 MG/DL BORDER-LINE HIGH RISK: 200-239 MG/DL 170-199 MG/DL HIGH RISK: >240 MG/DL >200 MG/DL CLASS. FOR PRIMARY LDL CHOL PREVENTION: LDL CHOL-CHILD/ADOLESCENTS* DESIRABLE: <130 MG/DL <110 MG/DL BORDERLINE-HIGH RISK: 130-159 MG/DL 110-129 MG/DL HIGH RISK: >160 MG/DL >130 MG/DL *CHILDREN AND ADOLESCENTS REPRESENTS INDIVIDUALA AGED 2-19 YEARS EXCLUSIVE. CHRONIC KIDNEY DISEASE STAGING PER NKF: MALE GFR INTERPRETATION: 20-49 YRS: [...] mL/min Normal 80 and above >32 mL/min Normal Ast (Sgot) 17 U/L 0-40 [facility] ([facility] CLASSIFICATION CHOLESTEROL FO R ADULTS CHILDREN/ADOLESCENTS* DESIRABLE: <200 MG/DL <170 MG/DL BORDER-LINE HIGH RISK: 200-239 MG/DL 170-199 MG/DL HIGH RISK: >240 MG/DL >200 MG/DL CLASS. FOR PRIMARY LDL CHOL PREVENTION: LDL CHOL-CHILD/ADOLESCENTS* DESIRABLE: <130 MG/DL <110 MG/DL BORDERLINE-HIGH RISK: 130-159 MG/DL 110-129 MG/DL HIGH RISK: >160 MG/DL >130 MG/DL *CHILDREN AND ADOLESCENTS REPRESENTS INDIVIDUALA AGED 2-19 YEARS EXCLUSIVE. CHRONIC KIDNEY DISEASE STAGING PER NKF: MALE GFR INTERPRETATION: 20-49 YRS: [...] mL/min Normal 80 and above >32 mL/min Normal Tbili 0.18 mg/dL 0.0-1.2 [facility] ([facility] CLASSIFICATION CHOLESTEROL FO R ADULTS CHILDREN/ADOLESCENTS* DESIRABLE: <200 MG/DL <170 MG/DL BORDER-LINE HIGH RISK: 200-239 MG/DL 170-199 MG/DL HIGH RISK: >240 MG/DL >200 MG/DL CLASS. FOR PRIMARY LDL CHOL PREVENTION: LDL CHOL-CHILD/ADOLESCENTS* DESIRABLE: <130 MG/DL <110 MG/DL BORDERLINE-HIGH RISK: 130-159 MG/DL 110-129 MG/DL HIGH RISK: >160 MG/DL >130 MG/DL *CHILDREN AND ADOLESCENTS REPRESENTS INDIVIDUALA AGED 2-19 YEARS EXCLUSIVE. CHRONIC KIDNEY DISEASE STAGING PER NKF: MALE GFR INTERPRETATION: 20-49 YRS: [...] mL/min Normal 80 and above >32 mL/min Normal Osmolality-Calculated 283.9 Calc [facility] ([facility] CLASSIFICATION CHOLESTEROL FO R ADULTS CHILDREN/ADOLESCENTS* DESIRABLE: <200 MG/DL <170 MG/DL BORDER-LINE HIGH RISK: 200-239 MG/DL 170-199 MG/DL HIGH RISK: >240 MG/DL >200 MG/DL CLASS. FOR PRIMARY LDL CHOL PREVENTION: LDL CHOL-CHILD/ADOLESCENTS* DESIRABLE: <130 MG/DL <110 MG/DL BORDERLINE-HIGH RISK: 130-159 MG/DL 110-129 MG/DL HIGH RISK: >160 MG/DL >130 MG/DL *CHILDREN AND ADOLESCENTS REPRESENTS INDIVIDUALA AGED 2-19 YEARS EXCLUSIVE. CHRONIC KIDNEY DISEASE STAGING PER NKF: MALE GFR INTERPRETATION: 20-49 YRS: [...] mL/min Normal 80 and above >32 mL/min Normal Anion Gap 15 mmol/L [facility] ([facility] CLASSIFICATION CHOLESTEROL FO R ADULTS CHILDREN/ADOLESCENTS* DESIRABLE: <200 MG/DL <170 MG/DL BORDER-LINE HIGH RISK: 200-239 MG/DL 170-199 MG/DL HIGH RISK: >240 MG/DL >200 MG/DL CLASS. FOR PRIMARY LDL CHOL PREVENTION: LDL CHOL-CHILD/ADOLESCENTS* DESIRABLE: <130 MG/DL <110 MG/DL BORDERLINE-HIGH RISK: 130-159 MG/DL 110-129 MG/DL HIGH RISK: >160 MG/DL >130 MG/DL *CHILDREN AND ADOLESCENTS REPRESENTS INDIVIDUALA AGED 2-19 YEARS EXCLUSIVE. CHRONIC KIDNEY DISEASE STAGING PER NKF: MALE GFR INTERPRETATION: 20-49 YRS: [...] mL/min Normal 80 and above >32 mL/min Normal eGFR 80 # [facility] ( [facility] CLASSIFICATION CHOLESTEROL FO R ADULTS CHILDREN/ADOLESCENTS* DESIRABLE: <200 MG/DL <170 MG/DL BORDER-LINE HIGH RISK: 200-239 MG/DL 170-199 MG/DL HIGH RISK: >240 MG/DL >200 MG/DL CLASS. FOR PRIMARY LDL CHOL PREVENTION: LDL CHOL-CHILD/ADOLESCENTS* DESIRABLE: <130 MG/DL <110 MG/DL BORDERLINE-HIGH RISK: 130-159 MG/DL 110-129 MG/DL HIGH RISK: >160 MG/DL >130 MG/DL *CHILDREN AND ADOLESCENTS REPRESENTS INDIVIDUALA AGED 2-19 YEARS EXCLUSIVE. CHRONIC KIDNEY DISEASE STAGING PER NKF: MALE GFR INTERPRETATION: 20-49 YRS: [...] mL/min Normal 80 and above >32 mL/min Normal eGFR Non-Afr. [place] 69 # [facility] ([facility] CLASSIFICATION CHOLESTEROL FO R ADULTS CHILDREN/ADOLESCENTS* DESIRABLE: <200 MG/DL <170 MG/DL BORDER-LINE HIGH RISK: 200-239 MG/DL 170-199 MG/DL HIGH RISK: >240 MG/DL >200 MG/DL CLASS. FOR PRIMARY LDL CHOL PREVENTION: LDL CHOL-CHILD/ADOLESCENTS* DESIRABLE: <130 MG/DL <110 MG/DL BORDERLINE-HIGH RISK: 130-159 MG/DL 110-129 MG/DL HIGH RISK: >160 MG/DL >130 MG/DL *CHILDREN AND ADOLESCENTS REPRESENTS INDIVIDUALA AGED 2-19 YEARS EXCLUSIVE. CHRONIC KIDNEY DISEASE STAGING PER NKF: MALE GFR INTERPRETATION: 20-49 YRS: [...] mL/min Normal 80 and above >32 mL/min Normal Procedure Social History Code Duration Value Status Description Data Source(s ) Smoking 12/03/2019 12:00:00 AM EDT Patient has never smoked co mpleted Patient has never smoked MEDENT ([facility], ) Smoking 07/06/2019 03:34:33 PM EST Never smoked tobacco (findi ng) completed Never smoked tobacco (finding) IAN (Cleve Dick MD [facility]) Vital Signs ID Date Data Source UNK Name Value Range Interpretation Code Description Data Source(s) Oxygen saturation in Arterial blood by Pulse oximetry 96 % 96 % [facility] ([facility] Body mass index (BMI) [Ratio] 28.5 kg/m2 28.5 k g/m2 [facility] ([facility] [place] body weight 106 [lb_av] 106 [lb_av] MEDEN T ([facility] Body weight 146.00 [lb_av] 146.00 [lb_av] MEDEN T ([facility] Body height 60 [in_i] 60 [in_i] MED[facility] ([facility] 5'0" Respiratory rate 16 /min 16 /min MED[facility] ( [facility] Heart rate 90 /min 90 /min [facility] ([facility] Body temperature 97.4 [degF] 97.4 [degF] [facility] ([facility] Diastolic blood pressure 72 mm[Hg] 72 mm[Hg] [facility] ([facility] Systolic blood pressure 110 mm[Hg] 110 mm[Hg] M EDENT ([facility] Heart rate 91 /min 91 /min [facility] ([facility] Body temperature 98.0 [degF] 98.0 [degF] [facility] ([facility] Diastolic blood pressure 80 mm[Hg] 80 mm[Hg] [facility] ([facility] Systolic blood pressure 112 mm[Hg] 112 mm[Hg] M EDENT ([facility] Oxygen saturation in Arterial blood by Pulse oximetry 97 % 97 % [facility] ([facility] Body mass index (BMI) [Ratio] 29.3 kg/m2 29.3 k g/m2 [facility] ([facility] [place] body weight 106 [lb_av] 106 [lb_av] MEDEN T ([facility] Body weight 150.00 [lb_av] 150.00 [lb_av] MEDEN T ([facility] Body height 60 [in_i] 60 [in_i] [facility] ([facility] 5'0" Respiratory rate 16 /min 16 /min MED[facility] ( [facility] Body temperature 97.6 [degF] 97.6 [degF] [facility] ([facility]) Body weight 68.040 kg 68.040 kg [facility] ([facility]) Body mass index (BMI) [Ratio] 28.3 kg/m2 28.3 k g/m2 [facility] ([facility]) Heart rate 76 /min 76 /min [facility] ([facility]) Diastolic blood pressure 79 mm[Hg] 79 mm[Hg] [facility] ([facility]) Systolic blood pressure 121 mm[Hg] 121 mm[Hg] M EDENT ([facility]) Body weight 150.00 [lb_av] 150.00 [lb_av] MEDEN T ([facility]) Body height 61 [in_i] 61 [in_i] [facility] ([facility]) 5'1" Oxygen saturation in Arterial blood by Pulse oximetry 97 % 97 % [facility] ([facility] Body mass index (BMI) [Ratio] 28.5 kg/m2 28.5 k g/m2 [facility] ([facility] [place] body weight 106 [lb_av] 106 [lb_av] MEDEN T ([facility] Body weight 146.00 [lb_av] 146.00 [lb_av] MEDEN T ([facility] Body height 60 [in_i] 60 [in_i] MED[facility] ([facility] 5'0" Respiratory rate 16 /min 16 /[facility] Heart rate 93 /min 93 /min [facility] ([facility] Body temperature 96.1 [degF] 96.1 [degF] [facility] ([facility] Diastolic blood pressure 60 mm[Hg] 60 mm[Hg] [facility] Systolic blood pressure 120 mm[Hg] 120 mm[Hg] [facility] Body weight 68.040 kg 68.040 kg [facility] ([facility], ) Body mass index (BMI) [Ratio] 28.8 kg/m2 28.8 k g/m2 [facility] ([facility]) Body weight 150.00 [lb_av] 150.00 [lb_av] MEDEN T ([facility]) Body height 60.5 [in_i] 60.5 [in_i] [facility] ([facility]) 5'0.50" Body temperature 99.4 [degF] 99.4 [degF] [facility] ([facility]) Oxygen saturation in Arterial blood by Pulse oximetry 95 % 95 % [facility] ([facility]) Heart rate 102 /min 102 /min [facility] ([facility]) Diastolic blood pressure 62 mm[Hg] 62 mm[Hg] [facility] ([facility]) Systolic blood pressure 100 mm[Hg] 100 mm[Hg] [facility] Oxygen saturation in Arterial blood by Pulse oximetry 97 % 97 % [facility] ([facility] Body mass index (BMI) [Ratio] 29.5 kg/m2 29.5 k g/m2 [facility] ([facility] [place] body weight 106 [lb_av] 106 [lb_av] MEDEN T ([facility] Body weight 151.00 [lb_av] 151.00 [lb_av] MEDEN T ([facility] Body height 60 [in_i] 60 [in_i] [facility] 5'0" Respiratory rate 16 /min 16 /min [facility] ( [facility] Heart rate 91 /min 91 /min [facility] ([facility] Body temperature 98.0 [degF] 98.0 [degF] [facility] ([facility] Diastolic blood pressure 60 mm[Hg] 60 mm[Hg] [facility] ([facility] Systolic blood pressure 116 mm[Hg] 116 mm[Hg] Mariann COATS ([facility]
--- NOTE | 2020-08-15 19:34 | REPVR ---
PROCEDURE INFORMATION: Exam: CT Head Without Contrast Exam date and time: 08/15/2020 7:23 PM Age: 69 years old Clinical indication: Injury or trauma; Fall; Blunt trauma (contusions or hematomas); Additional info: Fall injury TECHNIQUE: Imaging protocol: Computed tomography of the head without contrast. Radiation optimization: All CT scans at this facility use at least one of these dose optimization techniques: automated exposure control; mA and/or kV adjustment per patient size (includes targeted exams where dose is matched to clinical indication); or iterative reconstruction. COMPARISON: No relevant prior studies available. FINDINGS: Brain: Normal. No hemorrhage. Unremarkable white matter. No mass effect. Cerebral ventricles: No ventriculomegaly. Bones/joints: Unremarkable. No acute fracture. Paranasal sinuses: Visualized sinuses are unremarkable. No fluid levels. Mastoid air cells: Visualized mastoid air cells are well aerated. Soft tissues: Right posterior parietal soft tissue contusion. IMPRESSION: Right posterior parietal soft tissue contusion. No fracture. Electronically signed by: Jose Angel Vega On 08/15/2020 19:35:17 PM
--- OUTSIDE RECORDS SUMMARY | 2020-08-15 20:44 | CCD ---
Author Author [facility] Organization [facility] Address Unknown Phone Unavailable Care Team Providers Care Potato Bucker Name Role Phone Ania Moura MD Unavailable [...] D Shant PARKS Unavailable Unavailable Vincent, D hSant PARKS Unavailable Unavailable Vincent, D Shant PARKS [...] is protected by Article 27-F of the [place] [employer] Public Health law. If you continue you may have access to information: Regarding HIV / AIDS; Provided by facilities licensed or operated by the [employer] Office of Mental Health; or Provided by the [employer] Office for People With Developmental Disabilities. If such information is present, then the following [employer] mandated warning applies: This information has been [...] law may result in a fine or fpc sentence or both. A general authorization for the release of medical or other information is NOT sufficient authorization for further disc losure. Allergies and Adverse Reactions Type Description Substance Reaction Status Data Source(s ) Allergy to substance No Known Allergies No known allergies (situation ) IAN (Cleve Dick MD [facility]) Family History Family Member Name Family Member Gender Family Member Status Date o f Status Description Data Source(s) Unknown Unknown Problem [facility] ([facility] Encounters Encounter Providers Location Date Indications Data Source(s ) Outpatient Attender: Shant PARKS [place] [facility] 12:15:00 PM EST [facility] ([facility] Outpatient Attender: Shant PARKS [place] [facility] 01:15:00 PM EDT [facility] ([facility] Outpatient Attender: Kavon Moura MD Main Office 04/19/2020 10:45:00 AM EDT [facility] ([facility]) Outpatient Attender: Shant PARKS [place] [facility] 02:20:00 PM EDT [facility] ([facility] Outpatient Attender: Shant PARKS [place] [facility] 10:00:00 AM EST [facility] ([facility] Outpatient<td ID="encounterTypeDescripti onID0">8 Month Follow-Up</td><td>Cleve Kearney MD, FACS</td><td>Cleve Kearney MD [facility]</td><td>07/06/2019</td><td><content ID="encounterDiagnosisID0-0">Cataract Senile Cortical</content>, <content ID="encounterDiagnosisID0-1">Cataract Senile [...] HypoglycemicsDry Eye Syndrome IAN (Cleve Dick MD [facility]) Diabetic Retinopathy Nonproliferative Bereket th Eyes [...] 04/20/2020 03:38:00 PM EDT comple saira MEDENT ([facility] pneumococcal polysaccharide PPV23 04/20/2020 01:53:00 PM EDT comple saira [facility] ([facility] New in 2012. IIV4 04/20/2020 01:49:00 PM EDT completed [facility] ([facility] Medications Medication Brand Name Start Date Product Form Dose Route Admi nistrative Instructions Pharmacy Instructions Status Indications Reaction Description Data Source(s) Levothyroxine Sodium 0.112 MG Oral Tablet Levothyroxine Sodi um 04/20/2020 12:00:00 AM EDT active M EDENT ([facility] Suprep Bowel Prep Kit Suprep Bowel Prep Kit 04/19/2020 12:00:00 AM EDT active MED[facility] ([facility]) dapagliflozin 5 MG Oral Tablet [Farxiga] Farxiga 01/12/2020 12:00: 00 AM EDT ORAL active [facility] ([facility] Insurance Providers Payer name Policy type / Coverage type Policy ID Covered alliance party ID Covered alliance party's relationship to tsai Policy Tsai Plan Information R [facility] [id number] SP [id number] MEDICARE [id number] SP [id number] MEDICARE [id number] SP [id number] [employer] [id number] SP [id number] [employer] [place] Other 0 Self 0 Medicare Part B [facility] Other 0 Se lf 0 [employer] O [id number] S [id number] [employer] PPO O [id number] S [id number] [employer] Workers Compensation Self [employer] Self Problems, Conditions, and Diagnoses Code Display Name Description Problem Type Effective Dates Data Source(s) 636320441 Screening for malignant neoplasm of colo n Screening for malignant neoplasm of colon Problem 04/19/2020 12:00:00 AM EDT MED[facility] ([facility] [place]) [id number] Moderate persistent asthma Moderate persistent asthma Problem 12/03/2019 12:00:00 AM EDT [facility] ([facility] ) Surgeries/Procedures Procedure Description Date Indications Data Source(s) UPPER NDSC BIOPSY SINGLE/MULTIPLE 05/04/2020 12:00:00 AM EST [facility] ([facility]) COLONOSCOPY FLX DX W/WO COLLJ SPECIMENS 05/04/2020 12: 00:00 AM EST [facility] ([facility]) Currently wearing eyeglasses OTC readers +1.50 Curren tly wearing eyeglasses OTC readers +1.50 07/06/2019 12:00:00 AM EST IAN (Jarvis Dick MD [facility]) History of the retina was abnormal 09/25/2018 History o f the retina was abnormal 09/25/2018 07/06/2019 12:00:00 AM EST IAN (Jarvis Dick MD [facility]) History of diabetes mellitus DX: 1991 A1C: 6.7 in March with Jim PARKS FBS: 130 this morning History of diabetes mellitus DX: 1991 A1C: 6.7 in March with Jim PARKS FBS: 130 this morning 07/06/2019 12:00:00 AM EST IAN (Cleve Dick MD [facility]) No surgical / procedural history No surgical / procedural hi story 07/06/2019 12:00:00 AM EST IAN (Cleve Dick MD [facility]) Intermediate Eye Exam Established Patient Intermediate Eye Exam Established Patient 07/06/2019 12:00:00 AM EST IAN (Jarvis Dick MD [facility]) Results ID Date Data Source [id number] 07/12/2020 09:13:00 AM EST [facility] ([facility] [place] [place] [facility] Name Value Range Interpretation [...] 2-19 YEARS EXCLUSIVE. Chol 128 mg/dL 0-200 [facility] CHRONIC KIDNEY [...] YEARS EXCLUSIVE. Cho/HDL Ratio 2.1 CALC MEDENT ([facility] CHRONIC KIDNEY DISEASE STAGING PER [...] Calc 75-129 Below low normal MED[facility] ( [facility] CHRONIC KIDNEY DISEASE [...] 60 mg/dL 35-55 Above high normal MED[facility] ([facility] ) CHRONIC KIDNEY [...] 2-19 YEARS EXCLUSIVE. ID Date Data Source [id number] 07/12/2020 09:13:00 AM EST [facility] ([facility] [place] [facility] Name Value Range Interpretation Code Description Data Neyda rce(s) Supporting Document(s) Glu 122 mg/dL 70-110 Above high normal MED[facility] ([facility] CHRONIC KIDNEY DISEASE [...] 2-19 YEARS EXCLUSIVE. BUN/Creatinine Ratio 15.9 CALC [facility] ([facility] CHRONIC KIDNEY DISEASE [...] YEARS EXCLUSIVE. CL 104.5 mmol/L 98.0-107.0 [facility] ([facility] CHRONIC KIDNEY DISEASE STAGING [...] YEARS EXCLUSIVE. Na 141 mmol/L 136-145 [facility] CHRONIC KIDNEY DISEASE STAGING PER [...] YEARS EXCLUSIVE. Co2 24.4 mmol/L 22.0-29.0 [facility] ([facility] CHRONIC KIDNEY DISEASE STAGING PER [...] Tbili 0.35 mg/dL 0.0-1.2 [facility] ([facility] [...] INDIVIDUALA AGED 2-19 YEARS EXCLUSIVE. eGFR Non-Afr. Yemeni 87 # MEDENT ([facility] CHRONIC KIDNEY DISEASE STAGING [...] 2-19 YEARS EXCLUSIVE. ID Date Data Source [id number] 07/12/2020 09:13:00 AM EST MED[facility] ([facility] Name Value Range Interpretation Code Description Data Neyda rce(s) Supporting Document(s) Thyrotropin [Units/volume] in Serum or Plasma 0.343 ulU/mL 0. 60-4.8 Below low normal [facility] ([facility] ID Date Data Source [id number] 07/12/2020 09:13:00 AM EST [facility] ([facility] Name Value Range Interpretation Code Description Data Neyda rce(s) Supporting Document(s) Hemoglobin A1c/Hemoglobin.total in Blood 7.0 % 4.50-6.20 Above high normal [facility] ([facility] ID Date Data Source [id number] 05/04/2020 12:16:00 PM EST MED[facility] ([facility] [place]) Name Value Range Interpretation Code Description Data Neyda rce(s) Supporting Document(s) Surgical pathology study Laboratory test result [facility]) FINAL DIAGNOSIS A - Gastric polyp, biopsy: [...] MD 05/05/2020 [id number] ID Date Data Source [id number] 04/29/2020 10:00:00 AM EDT [facility] Name Value Range Interpretation Code Description Data [facility] rce(s) Supporting Document(s) SARS coronavirus 2 RNA [facility] This lab was ordered by [facility] and reported by [facility]. ID Date Data Source [id number] 04/13/2020 09:06:00 AM EDT [facility] ([facility] [place] [facility] Name Value Range Interpretation Code Description Data Neyda rce(s) Supporting Document(s) Trig 149 mg/dL 35-200 [facility] ([facility] CHRONIC KIDNEY DISEASE [...] YEARS EXCLUSIVE. Cho/HDL Ratio 2.2 CALC [facility] ([facility] CHRONIC KIDNEY DISEASE STAGING PER [...] 2-19 YEARS EXCLUSIVE. ID Date Data Source [id number] 04/13/2020 09:06:00 AM EDT [facility] ([facility] [place] [facility] Name Value Range Interpretation [...] 2-19 YEARS EXCLUSIVE. BUN/Creatinine Ratio 19.1 CALC [facility] ([facility] CHRONIC KIDNEY DISEASE [...] YEARS EXCLUSIVE. Co2 22.9 mmol/L 22.0-29.0 [facility] CHRONIC KIDNEY DISEASE STAGING [...] YEARS EXCLUSIVE. TP 6.9 g/dL 6.6-8.7 [facility] ([facility] CHRONIC KIDNEY [...] EXCLUSIVE. Alb 4.5 g/dL 3.5-5.2 [facility] CHRONIC KIDNEY DISEASE STAGING [...] EXCLUSIVE. Alt (SGPT) 14 U/L 0-41 [facility] ([facility] CHRONIC KIDNEY [...] Tbili 0.26 mg/dL 0.0-1.2 [facility] ([facility] CKD-EPI eGFR Non-Afr. Yemeni 77 # [facility] ([facility] CKD-EPI ID Date Data Source [id number] 04/13/2020 09:05:00 AM EDT [facility] ([facility] Name Value Range Interpretation Code Description Data Neyda rce(s) Supporting Document(s) Hemoglobin A1c/Hemoglobin.total in Blood 7.3 % 4.50-6.20 Above high normal [facility] ([facility] ID Date Data Source [id number] 04/13/2020 09:05:00 AM EDT [facility] ([facility] Name Value Range Interpretation Code Description Data Neyda rce(s) Supporting Document(s) Prostate specific Ag [Mass/volume] in Serum or Plasma 1.54 ng/mL 0.0- 4.0 [facility] ([facility] ID Date Data Source [id number] 04/13/2020 09:04:00 AM EDT [facility] ([facility] Name Value Range Interpretation Code Description Data Neyda rce(s) Supporting Document(s) Thyrotropin [Units/volume] in Serum or Plasma 5.233 ulU/mL 0. 60-4.8 Above high normal [facility] ([facility] ) ID Date Data Source [id number] 01/08/2020 09:40:00 AM EDT [facility] ([facility] Name Value Range Interpretation Code Description Data Neyda rce(s) Supporting Document(s) Hemoglobin A1c/Hemoglobin.total in Blood 7.4 % 4.50-6.20 Above high normal [facility] ([facility] ID Date Data Source [id number] 01/08/2020 09:40:00 AM EDT [facility] ([facility] Name Value Range Interpretation Code Description Data Neyda rce(s) Supporting Document(s) Chol 129 mg/dL 0-200 [facility] ([facility] NORMAL RANGES Age [...] HCT IS 5% LESS SOURCE FOR DATA: [employer] 1800 OPERATION MANUAL( AUTOMATED BLOOD COUNTS ANDDIFF.) [...] HCT IS 5% LESS SOURCE FOR DATA: [employer] 1800 OPERATION MANUAL( AUTOMATED BLOOD COUNTS ANDDIFF.) [...] 2-19 YEARS EXCLUSIVE. Trig 117 mg/dL 35-200 [facility] ([facility] NORMAL RANGES [...] HCT IS 5% LESS SOURCE FOR DATA: [employer] 1800 OPERATION MANUAL( AUTOMATED BLOOD COUNTS ANDDIFF.) [...] HCT IS 5% LESS SOURCE FOR DATA: [employer] 1800 OPERATION MANUAL( AUTOMATED BLOOD COUNTS ANDDIFF.) [...] Cho/HDL Ratio 2.2 CALC [facility] ([facility] NORMAL RANGES Age WBC [...] HCT IS 5% LESS SOURCE FOR DATA: [employer] 1800 OPERATION MANUAL( AUTOMATED BLOOD COUNTS ANDDIFF.) [...] 2-19 YEARS EXCLUSIVE. ID Date Data Source [id number] 01/08/2020 09:40:00 AM EDT [facility] ([facility] [place] [facility] Name Value Range Interpretation Code Description Data Neyda rce(s) Supporting Document(s) Glu 128 mg/dL 70-110 Above high normal [facility] ([facility] NORMAL RANGES Age [...] HCT IS 5% LESS SOURCE FOR DATA: [employer] 1800 OPERATION MANUAL( AUTOMATED BLOOD COUNTS [...] 2-19 YEARS EXCLUSIVE. BUN 21 mg/dL 8-23 [facility] ([facility] NORMAL [...] HCT IS 5% LESS SOURCE FOR DATA: [employer] 1800 OPERATION MANUAL( AUTOMATED BLOOD COUNTS ANDDIFF.) [...] HCT IS 5% LESS SOURCE FOR DATA: [employer] 1800 OPERATION MANUAL( AUTOMATED BLOOD COUNTS ANDDIFF.) [...] 2-19 YEARS EXCLUSIVE. K 4.6 mmol/L 3.5-5.1 [facility] ([facility] NORMAL RANGES Age WBC RBC [...] HCT IS 5% LESS SOURCE FOR DATA: [employer] 1800 OPERATION MANUAL( AUTOMATED BLOOD COUNTS ANDDIFF.) [...] 2-19 YEARS EXCLUSIVE. BUN/Creatinine Ratio 23.5 CALC [facility] ([facility] NORMAL RANGES Age [...] HCT IS 5% LESS SOURCE FOR DATA: [employer] 1800 OPERATION MANUAL( AUTOMATED BLOOD COUNTS ANDDIFF.) [...] 2-19 YEARS EXCLUSIVE. Na 137 mmol/L 136-145 [facility] ([facility] NORMAL RANGES Age WBC RBC [...] HCT IS 5% LESS SOURCE FOR DATA: [employer] 1800 OPERATION MANUAL( AUTOMATED BLOOD COUNTS ANDDIFF.) [...] 2-19 YEARS EXCLUSIVE. Co2 24.3 mmol/L 22.0-29.0 Chance (app) ([facility] NORMAL RANGES Age WBC RBC [...] HCT IS 5% LESS SOURCE FOR DATA: [employer] 1800 OPERATION MANUAL( AUTOMATED BLOOD COUNTS ANDDIFF.) [...] 2-19 YEARS EXCLUSIVE. CL 101.3 mmol/L 98.0-107.0 [facility] ([facility] NORMAL RANGES Age WBC [...] HCT IS 5% LESS SOURCE FOR DATA: [employer] 1800 OPERATION MANUAL( AUTOMATED BLOOD COUNTS ANDDIFF.) [...] 2-19 YEARS EXCLUSIVE. CA 9.1 mg/dL 8.6-10.2 [facility] NORMAL RANGES [...] HCT IS 5% LESS SOURCE FOR DATA: [employer] 1800 OPERATION MANUAL( AUTOMATED BLOOD COUNTS ANDDIFF.) [...] 2-19 YEARS EXCLUSIVE. Alb 4.2 g/dL 3.5-5.2 [facility] ([facility] NORMAL [...] HCT IS 5% LESS SOURCE FOR DATA: [employer] 1800 OPERATION MANUAL( AUTOMATED BLOOD COUNTS ANDDIFF.) [...] HCT IS 5% LESS SOURCE FOR DATA: [employer] 1800 OPERATION MANUAL( AUTOMATED BLOOD COUNTS ANDDIFF.) [...] 2-19 YEARS EXCLUSIVE. Alp 66.3 U/L 40-129 [facility] ([facility] NORMAL RANGES Age WBC [...] HCT IS 5% LESS SOURCE FOR DATA: [employer] 1800 OPERATION MANUAL( AUTOMATED BLOOD COUNTS ANDDIFF.) [...] HCT IS 5% LESS SOURCE FOR DATA: [employer] 1800 OPERATION MANUAL( AUTOMATED BLOOD COUNTS ANDDIFF.) [...] HCT IS 5% LESS SOURCE FOR DATA: [employer] 1800 OPERATION MANUAL( AUTOMATED BLOOD COUNTS ANDDIFF.) [...] YEARS EXCLUSIVE. Ast (Sgot) 23 U/L 0-40 [facility] ([facility] NORMAL RANGES Age WBC RBC [...] HCT IS 5% LESS SOURCE FOR DATA: [employer] 1800 OPERATION MANUAL( AUTOMATED BLOOD COUNTS ANDDIFF.) [...] YEARS EXCLUSIVE. Alt (SGPT) 21 U/L 0-41 [facility] ([facility] NORMAL [...] HCT IS 5% LESS SOURCE FOR DATA: [employer] 1800 OPERATION MANUAL( AUTOMATED BLOOD COUNTS ANDDIFF.) [...] HCT IS 5% LESS SOURCE FOR DATA: [employer] 1800 OPERATION MANUAL( AUTOMATED BLOOD COUNTS ANDDIFF.) [...] 2-19 YEARS EXCLUSIVE. Anion Gap 16 mmol/L [facility] ([facility] NORMAL [...] HCT IS 5% LESS SOURCE FOR DATA: [employer] 1800 OPERATION MANUAL( AUTOMATED BLOOD COUNTS ANDDIFF.) [...] HCT IS 5% LESS SOURCE FOR DATA: [employer] 1800 OPERATION MANUAL( AUTOMATED BLOOD COUNTS ANDDIFF.) [...] HCT IS 5% LESS SOURCE FOR DATA: [employer] 1800 OPERATION MANUAL( AUTOMATED BLOOD COUNTS ANDDIFF.) [...] INDIVIDUALA AGED 2-19 YEARS EXCLUSIVE. eGFR Non-Afr. Yemeni 87 # [facility] ([facility] [...] HCT IS 5% LESS SOURCE FOR DATA: [employer] 1800 OPERATION MANUAL( AUTOMATED BLOOD COUNTS ANDDIFF.) [...] 2-19 YEARS EXCLUSIVE. ID Date Data Source [id number] 01/08/2020 09:40:00 AM [place] [place] ([facility] [place] [place] [facility] Name Value Range Interpretation Code Description Data Neyda rce(s) Supporting Document(s) HGB 13.4 g/dL 12.0-18.0 [facility] ([facility] NORMAL RANGES [...] HCT IS 5% LESS SOURCE FOR DATA: [employer] 1800 OPERATION MANUAL( AUTOMATED BLOOD COUNTS ANDDIFF.) [...] 2-19 YEARS EXCLUSIVE. WBC 6.9 10E3/uL 4.1-10.9 [facility] ([facility] NORMAL RANGES Age WBC RBC [...] HCT IS 5% LESS SOURCE FOR DATA: [employer] 1800 OPERATION MANUAL( AUTOMATED BLOOD COUNTS ANDDIFF.) [...] 2-19 YEARS EXCLUSIVE. RBC 4.42 10E6/uL 4.20-6.30 Chance (app) ([facility] NORMAL RANGES Age [...] HCT IS 5% LESS SOURCE FOR DATA: [employer] 1800 OPERATION MANUAL( AUTOMATED BLOOD COUNTS ANDDIFF.) [...] HCT IS 5% LESS SOURCE FOR DATA: [employer] 1800 OPERATION MANUAL( AUTOMATED BLOOD COUNTS ANDDIFF.) [...] 2-19 YEARS EXCLUSIVE. HCT 41.0 % 37.0-51.0 [facility] ([facility] NORMAL RANGES Age WBC [...] HCT IS 5% LESS SOURCE FOR DATA: [employer] 1800 OPERATION MANUAL( AUTOMATED BLOOD COUNTS ANDDIFF.) [...] 2-19 YEARS EXCLUSIVE. MCH 30.3 pg 26.0-32.0 [facility] ([facility] NORMAL [...] HCT IS 5% LESS SOURCE FOR DATA: [employer] 1800 OPERATION MANUAL( AUTOMATED BLOOD COUNTS ANDDIFF.) [...] YEARS EXCLUSIVE. PLT 317 10E3/uL 140-440 [facility] ([facility] NORMAL RANGES Age WBC RBC [...] HCT IS 5% LESS SOURCE FOR DATA: [employer] 1800 OPERATION MANUAL( AUTOMATED BLOOD COUNTS ANDDIFF.) [...] 2-19 YEARS EXCLUSIVE. MCHC 32.7 g/dL 31.0-36.0 [facility] ([facility] NORMAL RANGES [...] HCT IS 5% LESS SOURCE FOR DATA: [employer] 1800 OPERATION MANUAL( AUTOMATED BLOOD COUNTS ANDDIFF.) [...] 2-19 YEARS EXCLUSIVE. RDW-CV 14.0 % 11.5-14.5 [facility] ([facility] NORMAL [...] HCT IS 5% LESS SOURCE FOR DATA: [employer] 1800 OPERATION MANUAL( AUTOMATED BLOOD COUNTS ANDDIFF.) [...] HCT IS 5% LESS SOURCE FOR DATA: [employer] 1800 OPERATION MANUAL( AUTOMATED BLOOD COUNTS ANDDIFF.) [...] HCT IS 5% LESS SOURCE FOR DATA: [employer] 1800 OPERATION MANUAL( AUTOMATED BLOOD COUNTS ANDDIFF.) [...] 2-19 YEARS EXCLUSIVE. MXD% 13.1 % 0.1-24.0 [facility] ([facility] NORMAL [...] HCT IS 5% LESS SOURCE FOR DATA: [employer] 1800 OPERATION MANUAL( AUTOMATED BLOOD COUNTS ANDDIFF.) [...] HCT IS 5% LESS SOURCE FOR DATA: [employer] 1800 OPERATION MANUAL( AUTOMATED BLOOD COUNTS ANDDIFF.) [...] 2-19 YEARS EXCLUSIVE. Lym# 1.7 10E3/uL 0.6-4.1 [facility] ([facility] NORMAL RANGES Age WBC RBC [...] HCT IS 5% LESS SOURCE FOR DATA: [employer] 1800 OPERATION MANUAL( AUTOMATED BLOOD COUNTS ANDDIFF.) [...] 2-19 YEARS EXCLUSIVE. MXD# 0.9 10E3/uL 0.0-1.8 [facility] ([facility] NORMAL RANGES Age WBC RBC [...] HCT IS 5% LESS SOURCE FOR DATA: [employer] 1800 OPERATION MANUAL( AUTOMATED BLOOD COUNTS ANDDIFF.) [...] HCT IS 5% LESS SOURCE FOR DATA: [employer] 1800 OPERATION MANUAL( AUTOMATED BLOOD COUNTS ANDDIFF.) [...] 2-19 YEARS EXCLUSIVE. ID Date Data Source [id number] 12/03/2019 02:02:00 PM EDT [facility] ([facility]) Name Value Range Interpretation Code Description Data Neyda rce(s) Supporting Document(s) PDFReport Laboratory test result [facility] ([facility]) FVC-Pre 2.70 L [facility] ([facility]) FVC-Pred 3.04 L [facility] ([facility]) FVC-%Pred-Pre 88 L [facility] ([facility]) FVC-LLN 2.35 L [facility] ([facility]) Fev1-Pred 2.24 L [facility] ([facility]) Fev1-Pre 1.82 L [facility] ([facility]) Fev1-%Pred-Pre 81 L [facility] ([facility]) Fev1-LLN 1.65 L [facility] ([facility]) Fev6-Pre 2.69 L [facility] ([facility]) Fev6-Pred 2.84 L [facility] ([facility]) Fev6-%Pred-Pre 94 L [facility] ([facility]) Cmj1huv-Sanc 74 % [facility] ([facility]) Fev6-LLN 2.16 L [facility] ([facility], ) Yvs6gzy-Jfc 68 % [facility] ([facility]) Vxs2ykq-YSI 65 % [facility] ([facility]) Ext6kcb-%Pred-Pre 90 % [facility] ([facility]) Psd8lik-Hmb 100 % [facility] ([facility]) Pya9hdx-%Pred-Pre 107 % [facility] ([facility]) Pjr1ihx-Hxez 93 % [facility] ([facility]) FEFMax-Pre 3.78 L/E/sec [facility] ([facility]) FEFMax-Pred 6.65 L/E/sec [facility] ([facility]) FEFMax-%Pred-Pre 56 L/E/sec [facility] ([facility]) Bso9675-Ntx 1.16 L/E/sec [facility] ([facility]) FEFMax-LLN 4.91 L/E/sec [facility] ([facility]) Beh1013-Hbbo 1.80 L/E/sec [facility] ([facility]) Tbx9034-ZRV 0.60 L/E/sec [facility] ([facility]) ExpTime-Pre 6.63 sec [facility] ([facility]) Ffr3851-%Pred-Pre 64 L/E/sec [facility] ([facility]) Xxn4ypi0-%Pred-Pre 86 % [facility] ([facility]) Jcl2rqf2-Kff 68 % [facility] ([facility]) Ohm7jqh3-Qsqu 78 % [facility] ([facility]) Zot4xqo5-MWL 69 % [facility] ([facility]) ID Date Data Source [id number] 07/14/2019 09:14:00 AM EST [facility] [place] [place] [facility] Name Value Range Interpretation Code Description Data Neyda rce(s) Supporting Document(s) Hemoglobin A1c/Hemoglobin.total in Blood 7.1 % 4.50-6.20 Above high normal [facility] ([facility] ID Date Data Source [id number] 07/14/2019 09:14:00 AM EST [facility] ([facility] Name Value Range Interpretation Code Description Data Neyda rce(s) Supporting Document(s) Thyrotropin [Units/volume] in Serum or Plasma 2.075 ulU/mL 0.60-4.8 [facility] ([facility] ID Date Data Source [id number] 07/14/2019 09:14:00 AM EST [facility] ([facility] Name Value Range Interpretation Code Description Data Neyda rce(s) Supporting Document(s) Chol 131 mg/dL 0-200 [facility] ([facility] CLASSIFICATION CHOLESTEROL FO [...] Calc 75-129 Below low normal [facility] ( [facility] CLASSIFICATION CHOLESTEROL FO [...] mL/min Normal Cho/HDL Ratio 2.1 CALC [facility] ([facility] CLASSIFICATION CHOLESTEROL FO R ADULTS [...] mL/min Normal Trig 153 mg/dL 35-200 [facility] ([facility] CLASSIFICATION CHOLESTEROL FO R ADULTS [...] >32 mL/min Normal ID Date Data Source [id number] 07/14/2019 09:14:00 AM EST [facility] [place] [place] [facility] Name Value Range Interpretation Code Description Data Neyda rce(s) Supporting Document(s) Glu 154 mg/dL 70-110 Above high normal [facility] ([facility] CLASSIFICATION CHOLESTEROL FO [...] mL/min Normal Creat 1.1 mg/dL 0.7-1.2 [facility] ([facility] CLASSIFICATION CHOLESTEROL FO [...] mL/min Normal BUN/Creatinine Ratio 17.7 Calc [facility] ([facility] CLASSIFICATION CHOLESTEROL FO [...] mL/min Normal BUN 19 mg/dL 8-23 [facility] ([facility] CLASSIFICATION CHOLESTEROL [...] >32 mL/min Normal CL 103.5 mmol/L 98.0-107.0 [facility] ([facility] CLASSIFICATION CHOLESTEROL [...] Normal Co2 25.8 mmol/L 22.0-29.0 [facility] ([facility] CLASSIFICATION CHOLESTEROL FO [...] mL/min Normal Alb 4.0 g/dL 3.5-5.2 [facility] ([facility] CLASSIFICATION CHOLESTEROL FO R [...] mL/min Normal Tbili 0.18 mg/dL 0.0-1.2 [facility] CLASSIFICATION CHOLESTEROL FO R ADULTS [...] and above >32 mL/min Normal eGFR Non-Afr. [place]i 69 # [facility] ([facility] [...] co mpleted Patient has never smoked [facility] ([facility], ) Smoking 07/06/2019 03:34:33 PM EST Never smoked tobacco (findi ng) completed Never smoked tobacco (finding) IAN ([facility]ve Dick [facility]) Vital Signs ID Date Data Source UNK Name Value Range Interpretation Code Description Data Source(s) Oxygen saturation in Arterial blood by Pulse oximetry 96 % 96 % [facility] ([facility] Body mass index (BMI) [Ratio] 28.5 kg/m2 28.5 k g/m2 [facility] ([facility] Bee body weight 106 [lb_av] 106 [lb_av] MEDEN T ([facility] Body weight 146.00 [lb_av] 146.00 [lb_av] MEDEN T ([facility] Body height 60 [in_i] 60 [in_i] [facility] [place] [facility] 5'0" Respiratory rate 16 /min 16 /min [facility] ( [facility] Heart rate 90 /min 90 /min [facility] ([facility] Body temperature 97.4 [degF] 97.4 [degF] [facility] ([facility] Diastolic blood pressure 72 mm[Hg] 72 mm[Hg] [facility] ([facility] Systolic blood pressure 110 mm[Hg] 110 mm[Hg] M EDENT ([facility] Heart rate 91 /min 91 /min [facility] ([facility] Body temperature 98.0 [degF] 98.0 [degF] [facility] ([facility] Diastolic blood pressure 80 mm[Hg] 80 mm[Hg] [facility] ([facility] Systolic blood pressure 112 mm[Hg] 112 mm[Hg] M EDENT ([facility] Oxygen saturation in Arterial blood by Pulse oximetry 97 % 97 % [facility] ([facility] Body mass index (BMI) [Ratio] 29.3 kg/m2 29.3 k g/m2 [facility] ([facility] Bee body weight 106 [lb_av] 106 [lb_av] MEDEN [...] k g/m2 [facility] ([facility] Bee body weight 106 [lb_av] 106 [lb_av] MEDEN T ([facility] Body weight 146.00 [lb_av] 146.00 [lb_av] MED[facility] T ([facility] Body height 60 [in_i] 60 [in_i] [facility] [place] [facility] 5'0" Respiratory rate 16 /min 16 /min [facility] Heart rate 93 /min 93 /min [facility] ([facility] Body temperature 96.1 [degF] 96.1 [degF] [facility] ([facility] Diastolic blood pressure 60 mm[Hg] 60 mm[Hg] [facility] Systolic blood pressure 120 mm[Hg] 120 mm[Hg] [facility] Body weight 68.040 kg 68.040 kg [facility] ([facility], ) Body mass index (BMI) [Ratio] 28.8 kg/m2 28.8 k g/m2 [facility] ([facility]) Body weight 150.00 [lb_av] 150.00 [lb_av] MEDEN T ([facility]) Body height 60.5 [in_i] 60.5 [in_i] [facility] ([facility]) 5'0.50" Body temperature 99.4 [degF] 99.4 [degF] [facility] ([facility]) Oxygen saturation in Arterial blood by Pulse oximetry 95 % 95 % [facility] ([facility]) Heart rate 102 /min 102 /min [facility] ([facility]) Diastolic blood pressure 62 mm[Hg] 62 mm[Hg] [facility] ([facility]) Systolic blood pressure 100 mm[Hg] 100 mm[Hg] [facility] Oxygen saturation in Arterial blood by Pulse oximetry 97 % 97 % [facility] ([facility] Body mass index (BMI) [Ratio] 29.5 kg/m2 29.5 k g/m2 [facility] ([facility] Bee body weight 106 [lb_av] 106 [lb_av] MED[facility] T ([facility] Body weight 151.00 [lb_av] 151.00 [lb_av] MED[facility] T ([facility] Body height 60 [in_i] 60 [in_i] [facility] 5'0" Respiratory rate 16 /min 16 /min [facility] ( [facility] Heart rate 91 /min 91 /min [facility] ([facility] Body temperature 98.0 [degF] 98.0 [degF] [facility] ([facility] Diastolic blood pressure 60 mm[Hg] 60 mm[Hg] [facility] ([facility] Systolic blood pressure 116 mm[Hg] 116 mm[Hg] Mariann COATS ([facility]
--- NOTE | 2020-08-15 20:58 | REPVR ---
PROCEDURE INFORMATION: Exam: XR Chest, 1 View Exam date and time: 08/15/2020 8:29 PM Age: 69 years old Clinical indication: Other: Synocope/near-syncope; Additional info: Syncope/near-syncope TECHNIQUE: Imaging protocol: XR of the chest Views: 1 view. COMPARISON: No relevant prior studies available. FINDINGS: Lungs: Unremarkable. No consolidation. Pleural spaces: Unremarkable. No pleural effusion. No pneumothorax. Heart/Mediastinum: Unremarkable. No cardiomegaly. Bones/joints: Unremarkable. IMPRESSION: No acute findings. Electronically signed by: Jose Angel Vega On 08/15/2020 20:58:52 PM
[2020-08-15 20:59] LABS: BASO # 0.1 10^3/uL (0.0-0.2); EOS # 0.1 10^3/uL (0.0-0.5); EOS % 0.9 % (0.0-3.0); HEMATOCRIT 44.6 % (42.0-52.0); HEMOGLOBIN 13.8 g/dl (13.5-17.5); LYMPH # 1.7 10^3/uL (1.5-5.0); LYMPH % 21.9 % (24.0-44.0); MEAN CORPUSCULAR HGB CONC 30.9 g/dl (32.0-36.5); MEAN CORPUSCULAR VOLUME 90.5 fl (80.0-96.0); MONO # 0.8 10^3/uL (0.0-0.8); MONO % 10.3 % (0.0-8.0); NEUTROPHILS # 5.1 10^3/uL (1.5-8.5); NEUTROPHILS % 65.4 % (36.0-66.0); PLATELET COUNT, AUTOMATED 343 10^3/uL (150-450); RED BLOOD COUNT 4.93 10^6/uL (4.30-6.10); WHITE BLOOD COUNT 7.8 10^3/uL (4.0-10.0)
[2020-08-15] MEDS ORDERED: ESCITALOPRAM OXALATE 10 MG TAB (LEXAPRO) PO SCH (21:00)
[2020-08-15 21:10] LABS: INR 0.96
[2020-08-15 21:11] LABS: PARTIAL THROMBOPLASTIN TIME 40.8 SECONDS (24.2-38.5)
[2020-08-15 21:30] LABS: BLOOD UREA NITROGEN 20 MG/DL (7-18); CALCIUM LEVEL 9.3 MG/DL (8.8-10.2); CARBON DIOXIDE LEVEL 29 MEQ/L (21-32); CHLORIDE LEVEL 102 MEQ/L (98-107); CK-MB VALUE MASS 1.2 NG/ML (<3.6); CPK CREATINE PHOSPHOKINASE 62 U/L (39-308); GLOMERULAR FILTRATION RATE > 60.0 (>49); GLUCOSE, FASTING 96 MG/DL (70-100); MAGNESIUM LEVEL 2.4 MG/DL (1.8-2.4); MB/CK RELATIVE INDEX 1.94 (< OR =4); POTASSIUM SERUM 4.4 MEQ/L (3.5-5.1); SODIUM LEVEL 137 MEQ/L (136-145); TROPONIN I < 0.02 NG/ML (< 0.10)
[2020-08-15] MEDS ORDERED: LEXA1TAB PO (22:20)
[2020-08-15] MEDS ORDERED: FARX1TAB5 PO (22:20)
[2020-08-15] MEDS ORDERED: LEVALBUTEROL HFA 45MCG/ACT 15 GM INHALER INH PRN (23:45)
[2020-08-15] MEDS ORDERED: GLUCOSE 4GM CHEW TABLET PO PRN (23:45)
[2020-08-15] MEDS ORDERED: DEXTROSE 50% 50 ML SYRINGE IV PRN (23:45)
[2020-08-15] MEDS ORDERED: GLUCAGON INJ 1MG VIAL SC PRN (23:45)
--- NOTE | 2020-08-15 23:50 | HPEPDOC ---
General Date of Admission Aug 15, 2020 Date of Service: Aug 15, 2020 Chief Complaint The patient is a 69-year-old male admitted with a reason for visit of Syncope. Source: Patient History of Present Illness Mr. Uriostegui is a 69 year old male with DM and asthma who presents with syncope and LOC. Around this time of year, he normally would have difficulty breathing and start using his albuterol inhaler more frequently. About 3 weeks ago, he had increased albuterol usage. Today, he stool up and walked over to some boxes where his albuterol was located. He took too puffs, then passed out from standing position. He woke up on the floor with a bruise on the right posterior head. He came into the ED for evaluation. CT head demonstrated right posterior parietal soft tissue contusion, but no fracture. When I saw him in the ED, he was feeling better. He has a bruise on the posterior right back head. Patient will be placed in observation for syncope. Home Medications Scheduled Dapagliflozin Propanediol (Farxiga) 5 Mg Tablet, 5 MG PO DAILY, (Reported) Escitalopram Oxalate (Lexapro) 10 Mg Tablet, 10 MG PO QHS, (Reported) Lansoprazole (Lansoprazole) 30 Mg Capsule.dr, 30 MG PO DAILY, (Reported) Levothyroxine Sodium (Synthroid) 112 Mcg Tablet, 112 MCG PO QAM, (Reported) Pioglitazone HCl/Metformin HCl (Pioglitazone-Metformin 15850) 1 Each Tablet, 1 TAB PO BID, (Reported) Rosuvastatin Calcium (Rosuvastatin Calcium) 20 Mg Tablet, 20 MG PO DAILY, (Reported) Salmeterol/Fluticasone (Advair 500-50 Diskus) 1 Each Blst.w.dev, 1 PUFF PO BID, (Reported) Sitagliptin Phosphate (Januvia) 100 Mg Tablet, 100 MG PO DAILY, (Reported) Scheduled PRN Albuterol Sulfate (Ventolin Hfa) 18 Gm Hfa.aer.ad, 2 PUFF INH Q4-6HP PRN for wheezing, (Reported) Allergies Coded Allergies: No Known Allergies (Verified , 04/27/20) Past Medical History Medical History 1. Hyperlipidemia 2. Asthma 3. GERD 4. Arthritis 5. DM 2 6. Hypothyroidism 7. Depression and anxiety Surgical History 1. Cholecystectomy Family History Father: at 56 yo. History of heart disease Mother: at 47 yo. History of HBP Social History * Smoker: Denies Alcohol: occationally Drugs: denies A-FIB/CHADSVASC A-FIB History Current/History of A-Fib/PAF?: No Review of Systems Constitutional: Denies: Chills, Fever Eyes: Denies: Vision change ENT: Denies: Sore Throat Skin: Denies: Rash Pulmonary: Reports: Dyspnea (Has been going on our a couple of weeks) Cardiovascular: Denies: Chest Pain Gastrointestinal: Denies: Nausea, Abdominal Pain Genitourinary: Denies: Dysuria Hematologic: Denies: Bruising Neurological: Reports: Other Symptoms (Denies paresthesia) Psych: Reports: Anxiety, Depression Physical Examination General Exam: Positive: Alert, Cooperative Eye Exam: Positive: EOMI; Negative: Sclera icteric ENT Exam: Negative: Atraumatic (Bruise on right back of head) Neck Exam: Positive: Supple Chest Exam: Positive: Clear to auscultation; Negative: Rales, Rhonchi, Wheezing Heart Exam: Positive: Rate Normal, Regular Rhythm Abdomen Exam: Positive: Normal bowel sounds, Soft; Negative: Tenderness Extremity Exam: Negative: Edema Neuro Exam: Positive: Cranial Nerves 3-12 NL Psych Exam: Positive: Mental status NL, Mood NL Vital Signs Vital Signs Date Time Temp Pulse Resp B/P (MAP) Pulse Ox O2 Delivery O2 Flow Rate FiO2 08/15/20 20:13 18 Room Air 08/15/20 18:50 97.0 107 94 Laboratory Data Labs 24H Laboratory Tests 2 08/15/20 19:55: Bedside Glucose (Misc Panel) 115 08/15/20 20:24: Immature Granulocyte % (Auto) 0.5, Neutrophils (%) (Auto) 65.4, Lymphocytes (%) (Auto) 21.9L, Monocytes (%) (Auto) 10.3H, Eosinophils (%) (Auto) 0.9, Basophils (%) (Auto) 1.0, Neutrophils # (Auto) 5.1, Lymphocytes # (Auto) 1.7, Monocytes # (Auto) 0.8, Eosinophils # (Auto) 0.1, Basophils # (Auto) 0.1, Nucleated Red Blood Cells % (auto) 0.0, Prothrombin Time 13.0, Prothromb Time International Ratio 0.96, Activated Partial Thromboplast Time 40.8H, Anion Gap 6L, Glomerular Filtration Rate > 60.0, Calcium Level 9.3, Magnesium Level 2.4, Total Creatine Kinase 62, Creatine Kinase MB 1.2, Creatine Kinase MB Relative Index 1.94, Troponin I < 0.02, Thyroid Stimulating Hormone (TSH) 0.440, Free Thyroxine 1.30 CBC/BMP Laboratory Tests 08/15/20 20:24 Assessment/Plan Mr. Uriostegui is a 69 year old male with DM and asthma who presents with syncope and LOC. Patient believe it may have been from his albuterol which may have caused his heart rate to race. Will order EKG and monitor on telemetry. Will start him on Xopenex instead of albuterol. Plan / VTE VTE Prophylaxis Ordered?: Yes Plan Plan 1. Syncope -Unclear etiology -Both parents young. Father at 56 yo and Mother at 47 yo -Order echocardiogram and telemetry -Will switch to Xopenex instead of albuterol 2. Asthma -While here, will switch to Xopenex -Continue with Advair 3. Diabetes mellitus -Insulin sliding scale and carbohydrate consistent diet 4. Dyslipidemia -continue Rosuvastatin 5. Depression -Continue Lexapro 6. Hypothyroidism -Continue Levothyroxine 7. GERD -Continue Protonix 8. DVT ppx -Lovenox VIANEY NEWTON DO Aug 15, 2020 23:49
--- OUTSIDE RECORDS SUMMARY | 2020-08-16 00:26 | CCD ---
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 If you continue you may have access to information: Regarding HIV / AIDS; Provided by facilities licensed or operated by the [place] Office of Mental Health; or Provided by the [place] [facility] Office for People With Developmental Disabilities. If such information is present, then the following [place] [facility] mandated warning applies: This information has [...] law may result in a fine or assisted sentence or both. A general authorization for the release of medical or other information is NOT sufficient authorization for further disc losure. Allergies and Adverse Reactions Type Description Substance Reaction Status Data Source(s ) Allergy to substance No Known Allergies No known allergies (situation ) IAN (Cleve Dick MD [facility]) Family History Family Member Name Family Member Gender Family Member Status Date o f Status Description Data Source(s) Unknown Unknown Problem [facility] ([facility] Encounters Encounter Providers Location Date Indications Data Source(s ) Outpatient Attender: Shant PARKS [place] [facility] 12:15:00 PM EST [facility] Outpatient Attender: Shant PARKS [place] [facility] 01:15:00 PM EDT [facility] ([facility] Outpatient Attender: Kavon Moura MD Main Office 04/19/2020 10:45:00 AM EDT [facility] ([facility]) Outpatient Attender: Shant PARKS [place] [facility] 02:20:00 PM EDT [facility] ([facility] Outpatient Attender: Shant PARKS [place] [facility] 10:00:00 AM EST [facility] ([facility] Outpatient<td ID="encounterTypeDescripti onID0">8 Month Follow-Up</td><td>Cleve Kearney MD, FACS</td><td>Cleve Kearney MD [facility]</td><td>07/06/2019</td><td><content ID="encounterDiagnosisID0-0">Cataract Senile Cortical</content>, <content ID="encounterDiagnosisID0-1">Cataract Senile Nuclear</content>, [...] HypoglycemicsDry Eye Syndrome IAN (Cleve Dick MD [facility]) 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 New in 2012. IIV4 04/20/2020 01:49:00 PM EDT completed [facility] ([facility] Medications Medication Brand Name Start Date Product Form Dose Route Admi nistrative Instructions Pharmacy Instructions Status Indications Reaction Description Data Source(s) Levothyroxine Sodium 0.112 MG Oral Tablet Levothyroxine Sodi um 04/20/2020 12:00:00 AM EDT active M EDENT ([facility] Suprep Bowel Prep Kit Suprep Bowel Prep Kit 04/19/2020 12:00:00 AM EDT active [facility] ([facility]) dapagliflozin 5 MG Oral Tablet [Farxiga] Farxiga 01/12/2020 12:00: 00 AM EDT ORAL active [facility] ([facility] Insurance Providers Payer name Policy type / Coverage type Policy ID Covered green party ID Covered green party's relationship to tsai Policy Tsai Plan Information R [facility] [id number] SP [id number] MEDICARE [id number] SP [id number] MEDICARE [id number] SP [id number] [employer] [id number] SP [id number] [employer] [place] Other 0 Self 0 Medicare Part B [facility] Other 0 Se lf 0 [employer] O [id number] S [id number] [employer] PPO O [id number] S [id number] [employer] Workers Compensation Self [employer] Self Problems, Conditions, and Diagnoses Code Display Name Description Problem Type Effective Dates Data Source(s) 340568234 Screening for malignant neoplasm of colo n Screening for malignant neoplasm of colon Problem 04/19/2020 12:00:00 AM EDT [facility] ([facility]) [id number] Moderate persistent asthma Moderate persistent asthma Problem 12/03/2019 12:00:00 AM EDT [facility] ([facility] ) Surgeries/Procedures Procedure Description Date Indications Data Source(s) UPPER NDSC BIOPSY SINGLE/MULTIPLE 05/04/2020 12:00:00 AM EST [facility] ([facility]) COLONOSCOPY FLX DX W/WO COLLJ SPECIMENS 05/04/2020 12: 00:00 AM EST [facility] ([facility]) Currently wearing eyeglasses OTC readers +1.50 Curren tly wearing eyeglasses OTC readers +1.50 07/06/2019 12:00:00 AM EST IAN (Jarvis Dick MD [facility]) History of the retina was abnormal 09/25/2018 History o f the retina was abnormal 09/25/2018 07/06/2019 12:00:00 AM EST IAN (Jarvis Dick MD [facility]) History of diabetes mellitus DX: 1991 A1C: 6.7 in March with Jim PARKS FBS: 130 this morning History of diabetes mellitus DX: 1991 A1C: 6.7 in March with Jim PARKS FBS: 130 this morning 07/06/2019 12:00:00 AM EST INA (Cleve Dick MD [facility]) No surgical / procedural history No surgical / procedural hi story 07/06/2019 12:00:00 AM EST IAN (Cleve Dick MD [facility]) Intermediate Eye Exam Established Patient Intermediate Eye Exam Established Patient 07/06/2019 12:00:00 AM EST IAN (Jarvis Dick MD [facility]) Results ID Date Data Source [id number] 07/12/2020 09:13:00 AM EST MED[facility] ([facility] Name Value Range Interpretation [...] 2-19 YEARS EXCLUSIVE. Chol 128 mg/dL 0-200 [facility] CHRONIC KIDNEY [...] YEARS EXCLUSIVE. Cho/HDL Ratio 2.1 CALC [facility] [place] [facility] CHRONIC KIDNEY DISEASE STAGING PER [...] Calc 75-129 Below low normal MED[facility] ( [facility] CHRONIC KIDNEY [...] 60 mg/dL 35-55 Above high normal [facility] ([facility] ) CHRONIC KIDNEY [...] 2-19 YEARS EXCLUSIVE. ID Date Data Source [id number] 07/12/2020 09:13:00 AM EST MED[facility] ([facility] Name Value Range Interpretation Code Description Data Neyda rce(s) Supporting Document(s) Glu 122 mg/dL 70-110 Above high normal [facility] ([facility] CHRONIC KIDNEY [...] 2-19 YEARS EXCLUSIVE. BUN/Creatinine Ratio 15.9 CALC [facility] ([facility] CHRONIC KIDNEY DISEASE [...] YEARS EXCLUSIVE. CL 104.5 mmol/L 98.0-107.0 [facility] ([facility] CHRONIC KIDNEY DISEASE [...] YEARS EXCLUSIVE. Na 141 mmol/L 136-145 [facility] ([facility] CHRONIC KIDNEY DISEASE STAGING PER [...] YEARS EXCLUSIVE. Co2 24.4 mmol/L 22.0-29.0 [facility] ([facility] CHRONIC KIDNEY DISEASE STAGING [...] INDIVIDUALA AGED 2-19 YEARS EXCLUSIVE. eGFR Non-Afr. Ecuadorean 87 # MED[facility] ([facility] CHRONIC KIDNEY DISEASE STAGING [...] 2-19 YEARS EXCLUSIVE. ID Date Data Source [id number] 07/12/2020 09:13:00 AM EST MEDENT ([facility] Name Value Range Interpretation Code Description Data Neyda rce(s) Supporting Document(s) Thyrotropin [Units/volume] in Serum or Plasma 0.343 ulU/mL 0. 60-4.8 Below low normal [facility] ([facility] ) ID Date Data Source [id number] 07/12/2020 09:13:00 AM EST [facility] ([facility] Name Value Range Interpretation Code Description Data Neyda rce(s) Supporting Document(s) Hemoglobin A1c/Hemoglobin.total in Blood 7.0 % 4.50-6.20 Above high normal [facility] ([facility] ID Date Data Source [id number] 05/04/2020 12:16:00 PM EST MED[facility] ([facility]) Name Value Range Interpretation Code Description Data Neyda rce(s) Supporting Document(s) Surgical pathology study Laboratory test result [facility] FINAL DIAGNOSIS A - Gastric polyp, [...] MD 05/05/2020 [id number] ID Date Data Source [id number] 04/29/2020 10:00:00 AM EDT [facility] Name Value Range Interpretation Code Description Data [facility] rce(s) Supporting Document(s) SARS coronavirus 2 RNA [facility] This lab was ordered by [facility] and reported by [facility]. ID Date Data Source [id number] 04/13/2020 09:06:00 AM EDT [facility] ([facility] Name Value Range Interpretation Code Description Data Neyda rce(s) Supporting Document(s) Trig 149 mg/dL 35-200 [facility] ([facility] CHRONIC KIDNEY DISEASE [...] YEARS EXCLUSIVE. Cho/HDL Ratio 2.2 CALC [facility] [place] [facility] CHRONIC KIDNEY DISEASE STAGING PER [...] 2-19 YEARS EXCLUSIVE. ID Date Data Source [id number] 04/13/2020 09:06:00 AM EDT [facility] ([facility] Name Value Range Interpretation [...] 2-19 YEARS EXCLUSIVE. BUN/Creatinine Ratio 19.1 CALC [facility] CHRONIC KIDNEY DISEASE [...] YEARS EXCLUSIVE. Co2 22.9 mmol/L 22.0-29.0 [facility] ([facility] CHRONIC KIDNEY DISEASE STAGING [...] YEARS EXCLUSIVE. TP 6.9 g/dL 6.6-8.7 [facility] ([facility] CHRONIC KIDNEY [...] EXCLUSIVE. Alb 4.5 g/dL 3.5-5.2 [facility] CHRONIC KIDNEY DISEASE STAGING [...] EXCLUSIVE. Alt (SGPT) 14 U/L 0-41 RE[facility] ([facility] CHRONIC KIDNEY [...] [facility] CKD-EPI eGFR Non-Afr. Ecuadorean 77 # [facility] ([facility] CKD-EPI ID Date Data Source [id number] 04/13/2020 09:05:00 AM EDT [facility] ([facility] Name Value Range Interpretation Code Description Data Neyda rce(s) Supporting Document(s) Hemoglobin A1c/Hemoglobin.total in Blood 7.3 % 4.50-6.20 Above high normal [facility] ([facility] ID Date Data Source [id number] 04/13/2020 09:05:00 AM EDT [facility] ([facility] Name Value Range Interpretation Code Description Data Neyda rce(s) Supporting Document(s) Prostate specific Ag [Mass/volume] in Serum or Plasma 1.54 ng/mL 0.0- 4.0 [facility] ([facility] ID Date Data Source [id number] 04/13/2020 09:04:00 AM EDT [facility] ([facility] Name Value Range Interpretation Code Description Data Neyda rce(s) Supporting Document(s) Thyrotropin [Units/volume] in Serum or Plasma 5.233 ulU/mL 0. 60-4.8 Above high normal [facility] ([facility] ) ID Date Data Source [id number] 01/08/2020 09:40:00 AM EDT MED[facility] ([facility] Name Value Range Interpretation Code Description Data Neyda rce(s) Supporting Document(s) Hemoglobin A1c/Hemoglobin.total in Blood 7.4 % 4.50-6.20 Above high normal [facility] ([facility] ID Date Data Source [id number] 01/08/2020 09:40:00 AM EDT [facility] ([facility] Name Value Range Interpretation Code Description Data Neyda rce(s) Supporting Document(s) Chol 129 mg/dL 0-200 [facility] ([facility] NORMAL RANGES Age [...] HCT IS 5% LESS SOURCE FOR DATA: [employer] 1800 OPERATION MANUAL( AUTOMATED BLOOD COUNTS ANDDIFF.) [...] HCT IS 5% LESS SOURCE FOR DATA: [employer] 1800 OPERATION MANUAL( AUTOMATED BLOOD COUNTS ANDDIFF.) [...] 2-19 YEARS EXCLUSIVE. Trig 117 mg/dL 35-200 [facility] NORMAL RANGES [...] HCT IS 5% LESS SOURCE FOR DATA: [employer] 1800 OPERATION MANUAL( AUTOMATED BLOOD COUNTS ANDDIFF.) [...] HCT IS 5% LESS SOURCE FOR DATA: [employer] 1800 OPERATION MANUAL( AUTOMATED BLOOD COUNTS ANDDIFF.) [...] Cho/HDL Ratio 2.2 CALC [facility] ([facility] NORMAL RANGES Age WBC [...] HCT IS 5% LESS SOURCE FOR DATA: [employer] 1800 OPERATION MANUAL( AUTOMATED BLOOD COUNTS ANDDIFF.) [...] 2-19 YEARS EXCLUSIVE. ID Date Data Source [id number] 01/08/2020 09:40:00 AM EDT MED[facility] ([facility] Name Value Range Interpretation Code Description Data Neyda rce(s) Supporting Document(s) Glu 128 mg/dL 70-110 Above high normal [facility] ([facility] NORMAL RANGES [...] HCT IS 5% LESS SOURCE FOR DATA: [employer] 1800 OPERATION MANUAL( AUTOMATED BLOOD COUNTS [...] 2-19 YEARS EXCLUSIVE. BUN 21 mg/dL 8-23 [facility] NORMAL RANGES [...] HCT IS 5% LESS SOURCE FOR DATA: [employer] 1800 OPERATION MANUAL( AUTOMATED BLOOD COUNTS ANDDIFF.) [...] HCT IS 5% LESS SOURCE FOR DATA: [employer] 1800 OPERATION MANUAL( AUTOMATED BLOOD COUNTS ANDDIFF.) [...] 2-19 YEARS EXCLUSIVE. K 4.6 mmol/L 3.5-5.1 [facility] ([facility] NORMAL RANGES Age WBC RBC [...] HCT IS 5% LESS SOURCE FOR DATA: [employer] 1800 OPERATION MANUAL( AUTOMATED BLOOD COUNTS ANDDIFF.) [...] 2-19 YEARS EXCLUSIVE. BUN/Creatinine Ratio 23.5 CALC [facility] ([facility] NORMAL RANGES Age [...] HCT IS 5% LESS SOURCE FOR DATA: [employer] 1800 OPERATION MANUAL( AUTOMATED BLOOD COUNTS ANDDIFF.) [...] 2-19 YEARS EXCLUSIVE. Na 137 mmol/L 136-145 [facility] ([facility] NORMAL RANGES Age WBC RBC [...] HCT IS 5% LESS SOURCE FOR DATA: [employer] 1800 OPERATION MANUAL( AUTOMATED BLOOD COUNTS ANDDIFF.) [...] 2-19 YEARS EXCLUSIVE. Co2 24.3 mmol/L 22.0-29.0 [employer] ([facility] NORMAL RANGES Age WBC [...] HCT IS 5% LESS SOURCE FOR DATA: [employer] 1800 OPERATION MANUAL( AUTOMATED BLOOD COUNTS ANDDIFF.) [...] 2-19 YEARS EXCLUSIVE. CL 101.3 mmol/L 98.0-107.0 [facility] ([facility] NORMAL RANGES Age WBC [...] HCT IS 5% LESS SOURCE FOR DATA: [employer] 1800 OPERATION MANUAL( AUTOMATED BLOOD COUNTS ANDDIFF.) [...] 2-19 YEARS EXCLUSIVE. CA 9.1 mg/dL 8.6-10.2 [facility] NORMAL RANGES [...] HCT IS 5% LESS SOURCE FOR DATA: [employer] 1800 OPERATION MANUAL( AUTOMATED BLOOD COUNTS ANDDIFF.) [...] 2-19 YEARS EXCLUSIVE. Alb 4.2 g/dL 3.5-5.2 [facility] NORMAL RANGES [...] HCT IS 5% LESS SOURCE FOR DATA: [employer] 1800 OPERATION MANUAL( AUTOMATED BLOOD COUNTS ANDDIFF.) [...] HCT IS 5% LESS SOURCE FOR DATA: [employer] 1800 OPERATION MANUAL( AUTOMATED BLOOD COUNTS ANDDIFF.) [...] 2-19 YEARS EXCLUSIVE. Alp 66.3 U/L 40-129 [facility] NORMAL RANGES Age WBC [...] HCT IS 5% LESS SOURCE FOR DATA: [employer] 1800 OPERATION MANUAL( AUTOMATED BLOOD COUNTS ANDDIFF.) [...] HCT IS 5% LESS SOURCE FOR DATA: [employer] 1800 OPERATION MANUAL( AUTOMATED BLOOD COUNTS ANDDIFF.) [...] HCT IS 5% LESS SOURCE FOR DATA: [employer] 1800 OPERATION MANUAL( AUTOMATED BLOOD COUNTS ANDDIFF.) [...] YEARS EXCLUSIVE. Ast (Sgot) 23 U/L 0-40 [facility] ([facility] NORMAL RANGES Age WBC RBC [...] HCT IS 5% LESS SOURCE FOR DATA: [employer] 1800 OPERATION MANUAL( AUTOMATED BLOOD COUNTS ANDDIFF.) [...] YEARS EXCLUSIVE. Alt (SGPT) 21 U/L 0-41 [facility] ([facility] NORMAL RANGES [...] HCT IS 5% LESS SOURCE FOR DATA: [employer] 1800 OPERATION MANUAL( AUTOMATED BLOOD COUNTS ANDDIFF.) [...] HCT IS 5% LESS SOURCE FOR DATA: [employer] 1800 OPERATION MANUAL( AUTOMATED BLOOD COUNTS ANDDIFF.) [...] 2-19 YEARS EXCLUSIVE. Anion Gap 16 mmol/L [facility] NORMAL RANGES [...] HCT IS 5% LESS SOURCE FOR DATA: [employer] 1800 OPERATION MANUAL( AUTOMATED BLOOD COUNTS ANDDIFF.) [...] HCT IS 5% LESS SOURCE FOR DATA: [employer] 1800 OPERATION MANUAL( AUTOMATED BLOOD COUNTS ANDDIFF.) [...] HCT IS 5% LESS SOURCE FOR DATA: [employer] 1800 OPERATION MANUAL( AUTOMATED BLOOD COUNTS ANDDIFF.) [...] INDIVIDUALA AGED 2-19 YEARS EXCLUSIVE. eGFR Non-Afr. Ecuadorean 87 # [facility] ([facility] [...] HCT IS 5% LESS SOURCE FOR DATA: [employer] 1800 OPERATION MANUAL( AUTOMATED BLOOD COUNTS ANDDIFF.) [...] 2-19 YEARS EXCLUSIVE. ID Date Data Source [id number] 01/08/2020 09:40:00 AM OSCAR [facility]DON ([facility] Name Value Range Interpretation Code Description Data Neyda rce(s) Supporting Document(s) HGB 13.4 g/dL 12.0-18.0 [facility] ([facility] NORMAL RANGES [...] HCT IS 5% LESS SOURCE FOR DATA: [employer] 1800 OPERATION MANUAL( AUTOMATED BLOOD COUNTS ANDDIFF.) [...] 2-19 YEARS EXCLUSIVE. WBC 6.9 10E3/uL 4.1-10.9 [facility] ([facility] NORMAL RANGES Age WBC [...] HCT IS 5% LESS SOURCE FOR DATA: [employer] 1800 OPERATION MANUAL( AUTOMATED BLOOD COUNTS ANDDIFF.) [...] 2-19 YEARS EXCLUSIVE. RBC 4.42 10E6/uL 4.20-6.30 [employer] ([facility] NORMAL RANGES Age [...] HCT IS 5% LESS SOURCE FOR DATA: [employer] 1800 OPERATION MANUAL( AUTOMATED BLOOD COUNTS ANDDIFF.) [...] HCT IS 5% LESS SOURCE FOR DATA: [employer] 1800 OPERATION MANUAL( AUTOMATED BLOOD COUNTS ANDDIFF.) [...] 2-19 YEARS EXCLUSIVE. HCT 41.0 % 37.0-51.0 [facility] NORMAL RANGES Age WBC [...] HCT IS 5% LESS SOURCE FOR DATA: [employer] 1800 OPERATION MANUAL( AUTOMATED BLOOD COUNTS ANDDIFF.) [...] 2-19 YEARS EXCLUSIVE. MCH 30.3 pg 26.0-32.0 [facility] ([facility] NORMAL RANGES [...] HCT IS 5% LESS SOURCE FOR DATA: [employer] 1800 OPERATION MANUAL( AUTOMATED BLOOD COUNTS ANDDIFF.) [...] YEARS EXCLUSIVE. PLT 317 10E3/uL 140-440 MED[facility] ([facility] NORMAL RANGES Age WBC [...] HCT IS 5% LESS SOURCE FOR DATA: [employer] 1800 OPERATION MANUAL( AUTOMATED BLOOD COUNTS ANDDIFF.) [...] 2-19 YEARS EXCLUSIVE. MCHC 32.7 g/dL 31.0-36.0 [facility] ([facility] NORMAL RANGES [...] HCT IS 5% LESS SOURCE FOR DATA: [employer] 1800 OPERATION MANUAL( AUTOMATED BLOOD COUNTS ANDDIFF.) [...] 2-19 YEARS EXCLUSIVE. RDW-CV 14.0 % 11.5-14.5 [facility] NORMAL RANGES [...] HCT IS 5% LESS SOURCE FOR DATA: [employer] 1800 OPERATION MANUAL( AUTOMATED BLOOD COUNTS ANDDIFF.) [...] HCT IS 5% LESS SOURCE FOR DATA: [employer] 1800 OPERATION MANUAL( AUTOMATED BLOOD COUNTS ANDDIFF.) [...] HCT IS 5% LESS SOURCE FOR DATA: [employer] 1800 OPERATION MANUAL( AUTOMATED BLOOD COUNTS ANDDIFF.) [...] 2-19 YEARS EXCLUSIVE. MXD% 13.1 % 0.1-24.0 [facility] NORMAL RANGES [...] HCT IS 5% LESS SOURCE FOR DATA: [employer] 1800 OPERATION MANUAL( AUTOMATED BLOOD COUNTS ANDDIFF.) [...] HCT IS 5% LESS SOURCE FOR DATA: [employer] 1800 OPERATION MANUAL( AUTOMATED BLOOD COUNTS ANDDIFF.) [...] 2-19 YEARS EXCLUSIVE. Lym# 1.7 10E3/uL 0.6-4.1 [facility] ([facility] NORMAL RANGES Age WBC [...] HCT IS 5% LESS SOURCE FOR DATA: [employer] 1800 OPERATION MANUAL( AUTOMATED BLOOD COUNTS ANDDIFF.) [...] 2-19 YEARS EXCLUSIVE. MXD# 0.9 10E3/uL 0.0-1.8 [facility] ([facility] NORMAL RANGES Age WBC [...] HCT IS 5% LESS SOURCE FOR DATA: [employer] 1800 OPERATION MANUAL( AUTOMATED BLOOD COUNTS ANDDIFF.) [...] HCT IS 5% LESS SOURCE FOR DATA: [employer] 1800 OPERATION MANUAL( AUTOMATED BLOOD COUNTS ANDDIFF.) [...] 2-19 YEARS EXCLUSIVE. ID Date Data Source [id number] 12/03/2019 02:02:00 PM EDT [facility] ([facility]) Name Value Range Interpretation Code Description Data Neyda rce(s) Supporting Document(s) PDFReport Laboratory test result [facility] ([facility]) FVC-Pre 2.70 L [facility] ([facility]) FVC-Pred 3.04 L [facility] ([facility]) FVC-%Pred-Pre 88 L [facility] ([facility]) FVC-LLN 2.35 L [facility] ([facility]) Fev1-Pred 2.24 L [facility] ([facility]) Fev1-Pre 1.82 L [facility] ([facility]) Fev1-%Pred-Pre 81 L [facility] ([facility]) Fev1-LLN 1.65 L [facility] ([facility]) Fev6-Pre 2.69 L [facility] ([facility]) Fev6-Pred 2.84 L [facility] ([facility]) Fev6-%Pred-Pre 94 L [facility] ([facility]) Teg2fxm-Vjka 74 % [facility] ([facility]) Fev6-LLN 2.16 L [facility] ([facility], ) Evr3hap-Hor 68 % [facility] ([facility]) Khe1asj-UKS 65 % [facility] ([facility]) Ebj4ybi-%Pred-Pre 90 % [facility] ([facility]) Clj2hfb-Dvt 100 % [facility] ([facility]) Hus9umk-%Pred-Pre 107 % [facility] ([facility]) Gfm9lfi-Wtau 93 % [facility] ([facility]) FEFMax-Pre 3.78 L/E/sec [facility] ([facility]) FEFMax-Pred 6.65 L/E/sec [facility] ([facility]) FEFMax-%Pred-Pre 56 L/E/sec [facility] ([facility]) Tcc5894-Goq 1.16 L/E/sec [facility] ([facility]) FEFMax-LLN 4.91 L/E/sec [facility] ([facility]) Kxr9562-Hilh 1.80 L/E/sec [facility] ([facility]) Acg0502-APT 0.60 L/E/sec [facility] ([facility]) ExpTime-Pre 6.63 sec [facility] ([facility]) Wjn4143-%Pred-Pre 64 L/E/sec [facility] ([facility]) Sci6mkq9-%Pred-Pre 86 % [facility] ([facility]) Nkg1apg2-Nqj 68 % [facility] ([facility]) Hox5xvq3-Gzsp 78 % [facility] ([facility]) Evc6wxj8-GFK 69 % [facility] ([facility]) ID Date Data Source [id number] 07/14/2019 09:14:00 AM EST [facility] ([facility] Name Value Range Interpretation Code Description Data Neyda rce(s) Supporting Document(s) Hemoglobin A1c/Hemoglobin.total in Blood 7.1 % 4.50-6.20 Above high normal [facility] ([facility] ID Date Data Source [id number] 07/14/2019 09:14:00 AM EST [facility] ([facility] Name Value Range Interpretation Code Description Data Neyda rce(s) Supporting Document(s) Thyrotropin [Units/volume] in Serum or Plasma 2.075 ulU/mL 0.60-4.8 [facility] ([facility] ID Date Data Source [id number] 07/14/2019 09:14:00 AM EST [facility] ([facility] [facility] Name Value Range Interpretation Code Description Data Neyda rce(s) Supporting Document(s) Chol 131 mg/dL 0-200 MED[facility] ([facility] CLASSIFICATION CHOLESTEROL FO [...] Calc 75-129 Below low normal [facility] ( [facility] CLASSIFICATION CHOLESTEROL [...] mL/min Normal Cho/HDL Ratio 2.1 CALC [facility] CLASSIFICATION CHOLESTEROL FO R [...] mL/min Normal Trig 153 mg/dL 35-200 [facility] ([facility] CLASSIFICATION CHOLESTEROL FO R ADULTS [...] >32 mL/min Normal ID Date Data Source [id number] 07/14/2019 09:14:00 AM EST [facility] ([facility] Name Value Range Interpretation Code Description Data Neyda rce(s) Supporting Document(s) Glu 154 mg/dL 70-110 Above high normal [facility] ([facility] CLASSIFICATION CHOLESTEROL [...] mL/min Normal Creat 1.1 mg/dL 0.7-1.2 [facility] ([facility] CLASSIFICATION CHOLESTEROL FO [...] mL/min Normal BUN/Creatinine Ratio 17.7 Calc MEDENT ([facility] CLASSIFICATION CHOLESTEROL FO [...] mL/min Normal BUN 19 mg/dL 8-23 [facility] ([facility] CLASSIFICATION CHOLESTEROL [...] >32 mL/min Normal CL 103.5 mmol/L 98.0-107.0 [facility] ([facility] CLASSIFICATION CHOLESTEROL [...] Normal Co2 25.8 mmol/L 22.0-29.0 [facility] ([facility] CLASSIFICATION CHOLESTEROL FO R [...] mL/min Normal Alb 4.0 g/dL 3.5-5.2 [facility] CLASSIFICATION CHOLESTEROL FO R [...] mL/min Normal Tbili 0.18 mg/dL 0.0-1.2 [facility] ([facility] CLASSIFICATION CHOLESTEROL FO R ADULTS [...] and above >32 mL/min Normal eGFR Non-Afr. Ecuadorean 69 # [facility] ([facility] [...] co mpleted Patient has never smoked [facility] ([facility], ) Smoking 07/06/2019 03:34:33 PM EST Never smoked tobacco (findi ng) completed Never smoked tobacco (finding) IAN ([facility] Dick [facility]) Vital Signs ID Date Data Source UNK Name Value Range Interpretation Code Description Data Source(s) Oxygen saturation in Arterial blood by Pulse oximetry 96 % 96 % [facility] ([facility] Body mass index (BMI) [Ratio] 28.5 kg/m2 28.5 k g/m2 [facility] ([facility] Bur[place]ette body weight 106 [lb_av] 106 [lb_av] MEDEN T ([facility] Body weight 146.00 [lb_av] 146.00 [lb_av] MEDEN T ([facility] Body height 60 [in_i] 60 [in_i] [facility] ([facility] 5'0" Respiratory rate 16 /min 16 /min MED[facility] ( [facility] Heart rate 90 /min 90 /min [facility] ([facility] Body temperature 97.4 [degF] 97.4 [degF] [facility] ([facility] Diastolic blood pressure 72 mm[Hg] 72 mm[Hg] [facility] ([facility] Systolic blood pressure 110 mm[Hg] 110 mm[Hg] M EDENT ([facility] Heart rate 91 /min 91 /min [facility] ([facility] Body temperature 98.0 [degF] 98.0 [degF] [facility] ([facility] Diastolic blood pressure 80 mm[Hg] 80 mm[Hg] [facility] ([facility] Systolic blood pressure 112 mm[Hg] 112 mm[Hg] M EDENT ([facility] Oxygen saturation in Arterial blood by Pulse oximetry 97 % 97 % [facility] ([facility] Body mass index (BMI) [Ratio] 29.3 kg/m2 29.3 k g/m2 [facility] ([facility] [place] body weight 106 [lb_av] 106 [lb_av] MEDEN [...] k g/m2 [facility] ([facility] [place] body weight 106 [lb_av] 106 [lb_av] MEDEN T ([facility] Body weight 146.00 [lb_av] 146.00 [lb_av] MEDEN T ([facility] Body height 60 [in_i] 60 [in_i] [facility] ([facility] 5'0" Respiratory rate 16 /min 16 /min [facility] Heart rate 93 /min 93 /min [facility] ([facility] Body temperature 96.1 [degF] 96.1 [degF] [facility] ([facility] Diastolic blood pressure 60 mm[Hg] 60 mm[Hg] [facility] Systolic blood pressure 120 mm[Hg] 120 mm[Hg] [facility] Body weight 68.040 kg 68.040 kg [facility] ([facility], ) Body mass index (BMI) [Ratio] 28.8 kg/m2 28.8 k g/m2 [facility] ([facility]) Body weight 150.00 [lb_av] 150.00 [lb_av] MEDEN T ([facility]) Body height 60.5 [in_i] 60.5 [in_i] [facility] ([facility]) 5'0.50" Body temperature 99.4 [degF] 99.4 [degF] [facility] ([facility]) Oxygen saturation in Arterial blood by Pulse oximetry 95 % 95 % [facility] ([facility]) Heart rate 102 /min 102 /min [facility] ([facility]) Diastolic blood pressure 62 mm[Hg] 62 mm[Hg] [facility] ([facility]) Systolic blood pressure 100 mm[Hg] 100 mm[Hg] [facility] Oxygen saturation in Arterial blood by Pulse oximetry 97 % 97 % [facility] ([facility] Body mass index (BMI) [Ratio] 29.5 kg/m2 29.5 k g/m2 [facility] ([facility] [place] body weight 106 [lb_av] 106 [lb_av] MEDEN T ([facility] Body weight 151.00 [lb_av] 151.00 [lb_av] MEDEN T ([facility] Body height 60 [in_i] 60 [in_i] [facility] 5'0" Respiratory rate 16 /min 16 /min REVA ( [facility] Heart rate 91 /min 91 /min REVA ([facility] Body temperature 98.0 [degF] 98.0 [degF] REVA ([facility] Diastolic blood pressure 60 mm[Hg] 60 mm[Hg] REVA ([facility] Systolic blood pressure 116 mm[Hg] 116 mm[Hg] Mariann COATS ([facility]
[2020-08-16 00:54] LABS: RSV AMPLIFICATION NEGATIVE (NEGATIVE)
[2020-08-16 02:00] VITALS: BP 120/67
[2020-08-16 06:00] VITALS: BP 111/63
[2020-08-16] MEDS ORDERED: LEVOTHYROXINE 112MCG TABLET (0.112MG) PO SCH (06:00)
[2020-08-16 06:57] LABS: HEMATOCRIT 41.4 % (42.0-52.0); MEAN CORPUSCULAR HEMOGLOBIN 28.2 pg (27.0-33.0); MEAN CORPUSCULAR HGB CONC 31.4 g/dl (32.0-36.5); MEAN CORPUSCULAR VOLUME 89.8 fl (80.0-96.0); PLATELET COUNT, AUTOMATED 307 10^3/uL (150-450); RED BLOOD COUNT 4.61 10^6/uL (4.30-6.10); WHITE BLOOD COUNT 5.6 10^3/uL (4.0-10.0)
[2020-08-16 07:26] LABS: BLOOD UREA NITROGEN 17 MG/DL (7-18); CALCIUM LEVEL 8.6 MG/DL (8.8-10.2); CARBON DIOXIDE LEVEL 26 MEQ/L (21-32); CHLORIDE LEVEL 108 MEQ/L (98-107); CREATININE FOR GFR 0.86 MG/DL (0.70-1.30); GLOMERULAR FILTRATION RATE > 60.0 (>49); GLUCOSE, FASTING 113 MG/DL (70-100); MAGNESIUM LEVEL 2.6 MG/DL (1.8-2.4); POTASSIUM SERUM 3.6 MEQ/L (3.5-5.1); SODIUM LEVEL 141 MEQ/L (136-145)
--- NOTE | 2020-08-16 07:46 | ECGEPIP ---
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
[2020-08-16] MEDS ORDERED: ADVAIR HFA 230/21MCG INHALER INH SCH (08:00)
[2020-08-16] MEDS ORDERED: PANTOPRAZOLE 40MG TAB (PROTONIX) PO SCH (09:00)
[2020-08-16] MEDS ORDERED: ROSUVASTATIN 10 MG TAB (CRESTOR) PO SCH (09:00)
[2020-08-16] MEDS: HumaLOG INSULIN (NovoLOG) PER UNIT SC SCH ×2 (09:14→11:36)
[2020-08-16] MEDS: ENOXAPARIN 40MG/0.4ML SYRINGE (J1650 PER 10MG) SC SCH ×2 (10:10→10:11)
[2020-08-16] MEDS ORDERED: SYMB16INH INH (12:57)
[2020-08-16 14:00] VITALS: BP 133/78
--- NOTE | 2020-08-16 16:47 | DS.PDOC ---
Discharge Summary General Date of Admission Aug 15, 2020 at 18:50 Date of Discharge 08/16/20 Discharge Summary PROCEDURES PERFORMED DURING STAY: [None]. ADMITTING DIAGNOSES: Syncope Asthma Diabetes mellitus Dyslipidemia Depression Hypothyroidism GERD DISCHARGE DIAGNOSES: Syncope Asthma Diabetes mellitus Dyslipidemia Depression Hypothyroidism GERD COMPLICATIONS/CHIEF COMPLAINT: Syncope. HISTORY OF PRESENT ILLNESS: Mr. Uriostegui is a 69 year old male with DM and asthma who presents with syncope and LOC. Patient believe it may have been from his albuterol which may have caused his heart rate to race. Will order EKG and monitor on telemetry. Will start him on Xopenex instead of albuterol HOSPITAL COURSE: During hospital stay following issue addressed 1. Syncope Most likely vasovagal CT negative, EKG shows sinus rhythm Follow-up with PCP 2. Asthma Continue inhalers 3. Diabetes mellitus Insulin sliding scale and carbohydrate consistent diet 4. Dyslipidemia -continue Rosuvastatin 5. Depression -Continue Lexapro 6. Hypothyroidism -Continue Levothyroxine 7. GERD -Continue Protonix DISCHARGE MEDICATIONS: Please see below. ALLERGIES: Please see below. PHYSICAL EXAMINATION ON DISCHARGE: VITAL SIGNS: Please see below. Physical Examination General Exam: Positive: Alert, Cooperative Eye Exam: Positive: EOMI; Negative: Sclera icteric ENT Exam: Negative: Atraumatic (Bruise on right back of head) Neck Exam: Positive: Supple Chest Exam: Positive: Clear to auscultation; Negative: Rales, Rhonchi, Wheezing Heart Exam: Positive: Rate Normal, Regular Rhythm Abdomen Exam: Positive: Normal bowel sounds, Soft; Negative: Tenderness Extremity Exam: Negative: Edema Neuro Exam: Positive: Cranial Nerves 3-12 NL Psych Exam: Positive: Mental status NL, Mood NL LABORATORY DATA: Please see below. PROGNOSIS: Fair ACTIVITY: [As tolerated]. DIET: Regular DISPOSITION: 01 Home, Self-Care. ITEMS TO FOLLOWUP ON ON OUTPATIENT: Follow-up with PCP in 3-5 days DISCHARGE CONDITION: [Stable]. TIME SPENT ON DISCHARGE: 25minutes. Vital Signs/I&Os Vital Signs Date Time Temp Pulse Resp B/P (MAP) Pulse Ox O2 Delivery O2 Flow Rate FiO2 08/16/20 14:00 98.6 87 18 133/78 (96) 94 Room Air I&O- Last 24 Hours up to 6 AM 08/16/20 06:00 Intake Total 150 ml Output Total 0 ml Balance 150 ml Laboratory Data Labs 24H Laboratory Tests 2 08/15/20 19:55: Bedside Glucose (Misc Panel) 115 08/15/20 20:24: Immature Granulocyte % (Auto) 0.5, Neutrophils (%) (Auto) 65.4, Lymphocytes (%) (Auto) 21.9L, Monocytes (%) (Auto) 10.3H, Eosinophils (%) (Auto) 0.9, Basophils (%) (Auto) 1.0, Neutrophils # (Auto) 5.1, Lymphocytes # (Auto) 1.7, Monocytes # (Auto) 0.8, Eosinophils # (Auto) 0.1, Basophils # (Auto) 0.1, Nucleated Red Blood Cells % (auto) 0.0, Prothrombin Time 13.0, Prothromb Time International Ratio 0.96, Activated Partial Thromboplast Time 40.8H, Anion Gap 6L, Glomerular Filtration Rate > 60.0, Calcium Level 9.3, Magnesium Level 2.4, Total Creatine Kinase 62, Creatine Kinase MB 1.2, Creatine Kinase MB Relative Index 1.94, Troponin I < 0.02, Thyroid Stimulating Hormone (TSH) 0.440, Free Thyroxine 1.30 08/15/20 23:56: Coronavirus (COVID-19)(PCR) NEGATIVE, Influenza Type A (RT-PCR) NEGATIVE, Influenza Type B (RT-PCR) NEGATIVE, Respiratory Syncytial Virus (PCR) NEGATIVE 08/16/20 00:01: Bedside Glucose (Misc Panel) 97 08/16/20 06:34: Nucleated Red Blood Cells % (auto) 0.0, Anion Gap 7L, Glomerular Filtration Rate > 60.0, Calcium Level 8.6L, Magnesium Level 2.6H 08/16/20 11:34: Bedside Glucose (Misc Panel) 201H CBC/BMP Laboratory Tests 08/15/20 20:24 08/16/20 06:34 FSBS Laboratory Tests Test 08/15/20 19:55 08/16/20 00:01 08/16/20 11:34 Range/Units Bedside Glucose (Misc Panel) 115 97 201 80-115 MG/DL Discharge Medications Scheduled Dapagliflozin Propanediol (Farxiga) 5 Mg Tablet, 5 MG PO DAILY, (Reported) Escitalopram Oxalate (Lexapro) 10 Mg Tablet, 10 MG PO QHS, (Reported) Lansoprazole (Lansoprazole) 30 Mg Capsule.dr, 30 MG PO DAILY, (Reported) Levothyroxine Sodium (Synthroid) 112 Mcg Tablet, 112 MCG PO QAM, (Reported) Pioglitazone HCl/Metformin HCl (Pioglitazone-Metformin 15-850) 1 Each Tablet, 1 TAB PO BID, (Reported) Rosuvastatin Calcium (Rosuvastatin Calcium) 20 Mg Tablet, 20 MG PO DAILY, (Reported) Salmeterol/Fluticasone (Advair 500-50 Diskus) 1 Each Blst.w.dev, 1 PUFF PO BID, (Reported) Sitagliptin Phosphate (Januvia) 100 Mg Tablet, 100 MG PO DAILY, (Reported) Scheduled PRN Albuterol Sulfate (Ventolin Hfa) 18 Gm Hfa.aer.ad, 2 PUFF INH Q4-6HP PRN for wheezing, (Reported) Allergies Coded Allergies: No Known Allergies (Verified , 04/27/20) MAURICE RDZ DO Aug 16, 2020 16:47
[2020-08-16] MEDS ORDERED: HumaLOG INSULIN (NovoLOG) PER UNIT SC SCH (21:00)
== END 2020-08-16 15:02 | disposition home or self-care (01) ==
LOC: M ED 18:49 → M ED INP 18:50 → M MSPAV 08-16 01:59
PROVIDERS: ADMIT Internal Medicine; ATTEND Internal Medicine
DX: R55 Syncope and collapse (principal); J45.909 Unspecified asthma, uncomplicated; E11.9 Type 2 diabetes mellitus without complications; E78.49 Other hyperlipidemia; E03.9 Hypothyroidism, unspecified; F32.9 Major depressive disorder, single episode, unspecified; K21.9 Gastro-esophageal reflux disease without esophagitis; Z79.84 Long term (current) use of oral hypoglycemic drugs; Z79.899 Other long term (current) drug therapy
CPT/HCPCS: 36415; 70450; 71045; 80048; 82550; 82553; 83735; 84439; 84443; 84484; 85025; 85027; 85610; 85730; 87631; 93005; 93041; 94640; 94760; 99285; G0378

== ENCOUNTER → 2020-10-25 | Outpatient (CLI) | payer MEDICARE, OTHER ==
[~2020-10-25] MED LIST changes: +FARX1TAB5 PO; +LEXA1TAB PO; +SYMB16INH INH
--- NOTE | 2020-10-26 11:59 | SLEEPHOME ---
DATE: 10/25/2020 ORDERED BY: CHRISTIANO SCHUSTER MD Diagnostic home sleep testing was performed due to concern for the obstructive sleep apnea syndrome. For testing, a nocturnal T3 respiratory monitoring device was used. Continuous record was made of pulse, oxygen saturation, air flow, chest and abdominal strain, and body position. Nine hours and 59 minutes of data were reviewed. There were 7 hours marked as time in bed. During the interval marked time in bed, there were 131 respiratory events identified of 10 seconds in duration or greater for a respiratory event index of 18.7. The events were obstructive. Baseline pulse rate was 89. Pulse rate ranged 63 to 107. Baseline saturation was 92%. Saturations fell to 81% and testing was performed in both the supine and nonsupine positions. IMPRESSION: Abnormal home sleep testing with repetitive respiratory events and oxygen desaturations to 81% with a respiratory event index of 18.7 is consistent with the obstructive sleep apnea syndrome. RECOMMENDATION: The patient should be encouraged to undergo a formal sleep evaluation.
== END ==
LOC: M SLEEP HO 09:42
PROVIDERS: ATTEND Internal Medicine Cardiovascular Disease
DX: G47.33 Obstructive sleep apnea (adult) (pediatric) (principal)

== ENCOUNTER → 2022-12-21 | Outpatient (CLI) | payer MEDICARE, OTHER ==
[~2022-12-21] MED LIST changes: -ROSU20TA5 PO; +ROSU20TA61 PO
[2022-12-21 12:45] LABS: APPEARANCE, URINE CLEAR (CLEAR); BACTERIA, URINE AUTO NEGATIVE (NEGATIVE); BILIRUBIN, URINE AUTO NEGATIVE (NEGATIVE); BLOOD, URINE BLOOD NEGATIVE (NEGATIVE); COLOR, URINE YELLOW (YELLOW); GLUCOSE, URINE (UA) AUTO 3+ mg/dL (NEGATIVE); KETONE, URINE AUTO NEGATIVE (NEGATIVE); LEUKOCYTE ESTERASE, URINE AUTO NEGATIVE (NEGATIVE); MUCUS, URINE SMALL (NEGATIVE); NITRITE, URINE AUTO NEGATIVE (NEGATIVE); PROTEIN, URINE AUTO NEGATIVE (NEGATIVE); RBC, URINE AUTO 1 /HPF (0-3); SPECIFIC GRAVITY URINE AUTO 1.028 (1.002-1.035); SQUAMOUS EPITHELIAL CELL UR AU 0 /HPF (0-6); UROBILINOGEN, URINE AUTO 0.2 mg/dL (0.0-2.0); WBC, URINE AUTO 1 /HPF (0-3)
[2022-12-21 12:49] LABS: PROSTATIC SPECIFIC AG MONITOR 1.82 NG/ML (< 4.00)
[2022-12-21 12:50] LABS: HEMATOCRIT 45.4 % (42.0-52.0); HEMOGLOBIN 14.4 g/dl (13.5-17.5); MEAN CORPUSCULAR HEMOGLOBIN 29.9 pg (27.0-33.0); MEAN CORPUSCULAR HGB CONC 31.7 g/dl (32.0-36.5); MEAN CORPUSCULAR VOLUME 94.2 fl (80.0-96.0); PLATELET COUNT, AUTOMATED 254 10^3/uL (150-450); RED BLOOD COUNT 4.82 10^6/uL (4.30-6.10); WHITE BLOOD COUNT 8.5 10^3/uL (4.0-10.0)
[2022-12-21 12:51] LABS: ALBUMIN 3.9 G/DL (3.2-5.2); ALKALINE PHOSPHATASE 64 U/L (46-116); ALT/SGPT 26 U/L (7.0-40); AST/SGOT 20 U/L (<34); BILIRUBIN,TOTAL 0.6 MG/DL (0.3-1.2); BLOOD UREA NITROGEN 19 MG/DL (9-23); CALCIUM LEVEL 8.9 MG/DL (8.3-10.6); CARBON DIOXIDE LEVEL 30 MMOL/L (20-31); CHLORIDE LEVEL 103 MMOL/L (98-107); CHOLESTEROL LEVEL 120 MG/DL (<200); CHOLESTEROL RISK RATIO 1.95 (<5); CREATININE FOR GFR 0.85 MG/DL (0.70-1.30); GLOMERULAR FILTRATION RATE > 60.0 (>42); GLUCOSE, FASTING 165 MG/DL (74-106); HDL CHOLESTEROL 61.4 MG/DL (>40); LDL CHOLESTEROL 38.6 MG/DL (<100); NON-HDL-C 58.6 MG/DL; POTASSIUM SERUM 4.5 MMOL/L (3.5-5.1); SODIUM LEVEL 140 MMOL/L (136-145); TOTAL PROTEIN 6.9 G/DL (5.7-8.2); TRIGLYCERIDES LEVEL 100 MG/DL (<150)
[2022-12-21 12:53] LABS: THYROID STIMULATING HORMONE 0.203 uIU/ML (0.55-4.78)
[2022-12-21 13:18] LABS: CREATININE, URINE 93.8 MG/DL
[2022-12-21 13:19] LABS: HEMOGLOBIN A1c 7.2 % (4.0-6.0)
[2022-12-21 13:20] LABS: MAU/CREAT RATIO 5.3 MCG/MG (0.0-30.0)
== END ==
LOC: M WUC 09:52
PROVIDERS: ATTEND Physician Assistant
DX: E11.9 Type 2 diabetes mellitus without complications (principal); E03.9 Hypothyroidism, unspecified; Z12.5 Encounter for screening for malignant neoplasm of prostate; E78.5 Hyperlipidemia, unspecified

== ENCOUNTER → 2023-09-02 | Outpatient (CLI) | payer MEDICARE, OTHER ==
[2023-09-02 11:13] LABS: HEMOGLOBIN A1c 7.3 % (4.0-6.0)
== END ==
LOC: M WUC 08:24
PROVIDERS: ATTEND Physician Assistant
DX: E03.9 Hypothyroidism, unspecified (principal); E11.9 Type 2 diabetes mellitus without complications

== ENCOUNTER → 2023-11-01 | Outpatient (REF) | payer MEDICARE, OTHER | LOC: M LABWUC 16:29 | PROVIDERS: ATTEND Urology | DX: Z12.5 Encounter for screening for malignant neoplasm of prostate (principal) ==

== ENCOUNTER → 2024-05-25 | Outpatient (CLI) | payer MEDICARE, OTHER ==
[~2024-05-25] MED LIST changes: -ROSU20TA61 PO; +ROSU20TA86 PO
[2024-05-25 11:55] LABS: HEMATOCRIT 43.3 % (42.0-52.0); MEAN CORPUSCULAR HEMOGLOBIN 30.7 pg (27.0-33.0); MEAN CORPUSCULAR HGB CONC 32.3 g/dl (32.0-36.5); PLATELET COUNT, AUTOMATED 227 10^3/uL (150-450); RED BLOOD COUNT 4.56 10^6/uL (4.30-6.10)
[2024-05-25 12:17] LABS: HEMOGLOBIN A1c 7.7 % (4.0-6.0)
[2024-05-25 12:29] LABS: ALBUMIN 3.5 G/DL (3.2-5.2); ALKALINE PHOSPHATASE 85 U/L (40-129); ALT/SGPT 28 U/L (7.0-40); AST/SGOT 12 U/L (<34); BILIRUBIN,TOTAL 0.4 MG/DL (0.3-1.2); BLOOD UREA NITROGEN 18 MG/DL (9-23); CALCIUM LEVEL 9.2 MG/DL (8.3-10.6); CARBON DIOXIDE LEVEL 31 MMOL/L (20-31); CHLORIDE LEVEL 102 MMOL/L (98-107); CHOLESTEROL LEVEL 145 MG/DL (<200); CHOLESTEROL RISK RATIO 2.43 (<5); CREATININE FOR GFR 0.85 MG/DL (0.70-1.30); GLOMERULAR FILTRATION RATE > 60.0 (>42); GLUCOSE, FASTING 180 MG/DL (74-106); HDL CHOLESTEROL 59.5 MG/DL (>40); LDL CHOLESTEROL 54.9 MG/DL (<100); NON-HDL-C 85.5 MG/DL; POTASSIUM SERUM 4.3 MMOL/L (3.5-5.1); PROSTATIC SPECIFIC AG MONITOR 1.62 NG/ML (< 4.00); SODIUM LEVEL 139 MMOL/L (136-145); THYROID STIMULATING HORMONE 1.665 uIU/ML (0.55-4.78); TOTAL PROTEIN 7.2 G/DL (5.7-8.2); TRIGLYCERIDES LEVEL 153 MG/DL (<150)
[2024-05-25 12:37] LABS: APPEARANCE, URINE CLEAR (CLEAR); BACTERIA, URINE AUTO NEGATIVE (NEGATIVE); BILIRUBIN, URINE AUTO NEGATIVE (NEGATIVE); BLOOD, URINE BLOOD NEGATIVE (NEGATIVE); COLOR, URINE YELLOW (YELLOW); GLUCOSE, URINE (UA) AUTO 3+ mg/dL (NEGATIVE); KETONE, URINE AUTO NEGATIVE (NEGATIVE); LEUKOCYTE ESTERASE, URINE AUTO NEGATIVE (NEGATIVE); MUCUS, URINE SMALL (NEGATIVE); NITRITE, URINE AUTO NEGATIVE (NEGATIVE); PROTEIN, URINE AUTO NEGATIVE (NEGATIVE); RBC, URINE AUTO 0 /HPF (0-3); SPECIFIC GRAVITY URINE AUTO 1.033 (1.002-1.035); SQUAMOUS EPITHELIAL CELL UR AU 0 /HPF (0-6); UROBILINOGEN, URINE AUTO 0.2 mg/dL (0.0-2.0); WBC, URINE AUTO 0 /HPF (0-3)
[2024-05-26 07:04] LABS: WHITE BLOOD COUNT 5.2 10^3/uL (4.0-10.0)
== END ==
LOC: M WUC 08:38
PROVIDERS: ATTEND Physician Assistant
DX: E11.9 Type 2 diabetes mellitus without complications (principal); E78.5 Hyperlipidemia, unspecified; Z12.5 Encounter for screening for malignant neoplasm of prostate; R35.1 Nocturia; E03.9 Hypothyroidism, unspecified

== ENCOUNTER → 2024-11-02 | Outpatient (CLI) | payer MEDICARE, OTHER ==
[~2024-11-02] MED LIST changes: -ADV500INH PO; +ADVA1AER10 PO; -PIOG15TA PO; +PIOG1TAB PO
[2024-11-02 13:04] LABS: HEMATOCRIT 48.1 % (42.0-52.0); HEMOGLOBIN 15.5 g/dl (13.5-17.5); MEAN CORPUSCULAR HEMOGLOBIN 30.5 pg (27.0-33.0); MEAN CORPUSCULAR HGB CONC 32.2 g/dl (32.0-36.5); MEAN CORPUSCULAR VOLUME 94.5 fl (80.0-96.0); PLATELET COUNT, AUTOMATED 249 10^3/uL (150-450); RED BLOOD COUNT 5.09 10^6/uL (4.30-6.10); WHITE BLOOD COUNT 6.2 10^3/uL (4.0-10.0)
[2024-11-02 13:30] LABS: HEMOGLOBIN A1c 6.8 % (4.0-6.0)
[2024-11-02 14:04] LABS: ALBUMIN 3.7 G/DL (3.2-5.2); ALKALINE PHOSPHATASE 94 U/L (40-129); ALT/SGPT 50 U/L (7.0-40); AST/SGOT 32 U/L (<34); BILIRUBIN,TOTAL 0.5 MG/DL (0.3-1.2); BLOOD UREA NITROGEN 16 MG/DL (9-23); CALCIUM LEVEL 9.3 MG/DL (8.3-10.6); CARBON DIOXIDE LEVEL 29 MMOL/L (20-31); CHLORIDE LEVEL 106 MMOL/L (98-107); CHOLESTEROL LEVEL 110 MG/DL (<200); CHOLESTEROL RISK RATIO 2.22 (<5); CREATININE FOR GFR 0.82 MG/DL (0.70-1.30); GLOMERULAR FILTRATION RATE > 90.0 (>42); GLUCOSE, FASTING 137 MG/DL (74-106); HDL CHOLESTEROL 49.4 MG/DL (>40); NON-HDL-C 60.6 MG/DL; POTASSIUM SERUM 4.7 MMOL/L (3.5-5.1); SODIUM LEVEL 142 MMOL/L (136-145); TOTAL PROTEIN 6.7 G/DL (5.7-8.2); TRIGLYCERIDES LEVEL 103 MG/DL (<150)
== END ==
LOC: M WUC 08:08
PROVIDERS: ATTEND Physician Assistant
DX: E78.5 Hyperlipidemia, unspecified (principal); E11.9 Type 2 diabetes mellitus without complications; E03.9 Hypothyroidism, unspecified

== ENCOUNTER 2024-11-09 06:47 | Day surgery (SDC) | payer MEDICARE, OTHER ==
[~2024-11-09] VITALS: Ht 154.9 cm; Wt 57.2 kg
[~2024-11-09 06:47] MED LIST changes: +ALBU8.5H INH; +SEMA2PEN SC
[2024-11-09] MEDS ORDERED: LR 1,000 ML IV SCH (07:00)
[2024-11-09 07:15] VITALS: BP 127/58
[2024-11-09] MEDS: LIDOCAINE 1% SDV 5ML VIAL As Ordered ONE (08:52)
[2024-11-09] MEDS: CEFUROXIME 1MG/0.1ML INTRACAMERAL INJ As Ordered ONE (09:01)
[2024-11-09 09:18] VITALS: TEMP 97.5; O2SAT 95
[2024-11-09] MEDS: PHENYLEPHRINE 2.5% OPHTH SOL 2ML OS SCH (09:41)
[2024-11-09] MEDS: CYCLOPENTOLATE 1% OPHTH SOLN 2ML BTL OS SCH (09:41)
[2024-11-09] MEDS: FLURBIPROFEN 0.03% OPHTH SOLN 2.5 ML OS SCH (09:41)
[2024-11-09] MEDS: TETRACAINE 0.5% OPHTH SOLN 4ML OS SCH (09:41)
[2024-11-09] MEDS ORDERED: fentaNYL 100 MCG/2 ML INJECTION As Ordered ONE (09:43)
== END 2024-11-09 09:37 | disposition home or self-care (01) ==
LOC: M SDC 06:47
PROVIDERS: ATTEND Ophthalmology
DX: E11.36 Type 2 diabetes mellitus with diabetic cataract (principal); H25.12 Age-related nuclear cataract, left eye; E03.9 Hypothyroidism, unspecified; E78.00 Pure hypercholesterolemia, unspecified; K21.9 Gastro-esophageal reflux disease without esophagitis; Z79.899 Other long term (current) drug therapy; Z79.85 Long-term (current) use of injectable non-insulin antidiabetic drugs; Z79.890 Hormone replacement therapy; J45.909 Unspecified asthma, uncomplicated; F32.A Depression, unspecified; F41.9 Anxiety disorder, unspecified
CPT/HCPCS: 66984; J0697; J3010; V2632